=== PATIENT | male | born 1960 | race African-American/Black ===

== ENCOUNTER 2022-07-12 20:11 | Emergency (ER) | payer MEDICAID, SELFPAY ==
[2022-07-12 20:27] VITALS: BP 175/86; PULSE 89; RESP 18; TEMP 36.9; O2SAT 99; BMI 27.1
--- NOTE | 2022-07-12 20:50 | ED_ITS ---
HPI - General Adult General Chief complaint: Shortness of Breath/Dyspnea Stated complaint: hard time catching breath, throat feels swollen Time Seen by Provider: 07/12/22 20:29 Source: patient Mode of arrival: ambulatory Limitations: no limitations History of Present Illness HPI narrative: 62-year-old male presents to the emergency department with months of feeling like his throat is closing. It is accompanied by a feeling of shortness of breath. There is no fever, no weight loss, no vomiting, no difficulty eating. Symptoms do seem worse at night. He is a smoker. He has had these episodes in the past as well. He states that he has been to the ED for them and has been told that there was nothing wrong. He has been told that it was because he was a smoker. He does report ongoing phlegm cough. He does also smoke marijuana. Symptoms do tend to worsen when he lies down at night but do not always improve with sitting up. He has not tried nasal sprays or any other similar treatments. No prior history of ENT consult. No feeling of food getting stuck when he swallows. Denies anxiety. He reports that he has no medical insurance and is frustrated that he cannot get answers on why his throat feels this way. Past medical history he states is benign, denies major long-term health problems. Socially smoker and marijuana user, denies significant alcohol. No pertinent travel. ROS is notable for the respiratory and HEENT symptoms as above, otherwise denies any other generalized, neurological, GI, urinary, skin symptoms. Does report ongoing dental caries. Related Data Home Medications Medication Instructions Recorded Confirmed No Known Home Medications 07/12/22 07/12/22 Previous Rx's Medication Instructions Recorded ipratropium bromide 21 mcg (0.03 2 spray intranasal BID-TID PRN 07/12/22 %) nasal spray Postnasal drip #30 mL Allergies Allergy/AdvReac Type Severity Reaction Status Date / Time No Known Drug Allergies Allergy Verified 07/12/22 20:28 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 (ICD-10) Surgical History (Updated 07/12/22 @ 20:52 by Rad Mason RN) No significant past surgical history Exam Const: Vital Signs, click to edit/add: Vital Signs - 24 hr 07/12/22 20:27 Temperature 98.4 F Pulse Rate [Right Pulse Oximeter] 89 Respiratory Rate 18 Blood Pressure [Ri ght Upper Arm] 175/86 H Pulse Oximetry 99 Oxygen Delivery Me thod Room Air Documenting provider has reviewed patient's vital signs: yes Common normals: no apparent distress General appearance: cooperative and comfortable HENMT: Common normals: normocephalic Head and scalp: normocephalic Face and sinus: normal facial exam Other: TMs normal. Nose with mild clear mucus rhinorrhea. Small postnasal drip. Throat is not swollen. Tonsils are not enlarged. Very poor dentition but no purulent drainage or signs of abscess. Tongue is normal. Eye: Common normals: conjunctivae normal Conjunctiva: conjunctiva(e) normal Neck & C-Spine: Common normals: full ROM and no lymphadenopathy Resp: Common normals: normal respiratory effort, no use of accessory muscles and clear to auscultation bilaterally Effort & inspection: able to speak in complete sentences Auscultation: clear to auscultation bilaterally Cardio: Common normals: regular rate, regular rhythm, S1 normal heart sound, S2 normal heart sound and no murmurs Rate: regular rate Rhythm: regular rhythm Heart sounds: S1 normal and S2 normal Psych: Common normals: speech normal Speech: normal speech Mood and affect: anxious Insight: fair Judgement: fair Skin: Common normals: no rashes or lesions noted General skin exam: no rashes or lesions noted Course Vital Signs Vital signs: Initial Vital Signs Temperature 98.4 F 07/12/22 20:27 Temperature Source Temporal Artery Scan 07/12/22 20:27 Pulse Rate 89 07/12/22 20:27 Respiratory Rate 18 07/12/22 20:27 Blood Pressure 175/86 H 07/12/22 20:27 Blood Pressure Mean 115 07/12/22 20:27 Blood Pressure Position Sitting 07/12/22 20:27 Pulse Oximetry 99 07/12/22 20:27 Oxygen Delivery Method Room Air 07/12/22 20:27 Vital Signs Temperature 98.4 F 07/12/22 20:27 Pulse Rate 89 07/12/22 20:27 Respiratory Rate 18 07/12/22 20:27 Blood Pressure 175/86 H 07/12/22 20:27 Pulse Oximetry 99 07/12/22 20:27 Oxygen Delivery Method Room Air 07/12/22 20:27 Temperature 98.4 F 07/12/22 20:27 Pulse Rate 89 07/12/22 20:27 Respiratory Rate 18 07/12/22 20:27 Blood Pressure 175/86 H 07/12/22 20:27 Pulse Oximetry 99 07/12/22 20:27 Oxygen Delivery Method Room Air 07/12/22 20:27 Medical Decision Making MDM Narrative Medical decision making narrative: No signs of airway compromise. Slight postnasal drip and dental caries but with no signs of acute infection. Lungs without any signs of wheezing today, no tachypnea or hypoxia. I recommended the patient make an appointment for a full physical with primary care provider, consider getting his thyroid tested. I have recommended a trial of a nasal spray to help with postnasal drip like ipratropium. I have advised that this could be connected to his smoking as well. If symptoms fail to improve through this workup, his primary care provider could consider an ENT consult but I do not see any emergent issues today. Patient will make appropriate follow-up with primary care more if his review ipratropium is not helping. Discharge Plan Discharge Clinical Impression: PND (post-nasal drip) Patient Disposition: Home, Self-Care Condition: Stable Instructions: Postnasal Drip (DC) Additional Instructions: As we discussed, we do not do comprehensive throat workups in the emergency department. What I can tell is that your oxygen levels are normal, your throat is not in fact closing and your breathing is fine tonight. You do have somewhat of a small postnasal drip which can be from ongoing smoking. I would like for you to try ipratropium nasal spray 3 times daily as needed to see if this improves your symptoms. As we discussed, in the emergency department we treat emergent conditions only but do not do comprehensive workups. I think you could benefit from seeing a primary care doctor and getting a referral to an ear nose and throat provider for a nasopharyngoscopy if your symptoms fail to improve on the nasal spray. Please explore options through [facility] or [facility]. I agree with you that your teeth are in poor shape but I do not see any signs of an abscess that would warrant antibiotic treatment at this time. Activity Level: No Restrictions Discharge Diet: Regular Prescriptions: New ipratropium bromide 21 mcg (0.03 %) spray,non-aerosol 2 spray intranasal BID-TID PRN (Reason: Postnasal drip) Qty: 30 1RF Rx Instructions: administer into each nostril No Action No Known Home Medications Stand Alone Forms: [employer] Info Instructions
[2022-07-12 21:01] VITALS: BP 165/84; PULSE 84; RESP 18; TEMP 36.9; O2SAT 99
[2022-07-12 21:07] VITALS: BP 165/84; PULSE 84; RESP 18; TEMP 36.9
== END 2022-07-12 21:08 | disposition home or self-care (01) ==
LOC: ED 20:58
PROVIDERS: Emergency Provider Family Medicine
DX: R09.81 Nasal congestion (principal)
CPT/HCPCS: 99282

== ENCOUNTER 2023-01-29 11:07 | Emergency (ER) | payer MEDICAID, SELFPAY ==
[2023-01-29 11:15] VITALS: BP 156/93; PULSE 95; RESP 16; TEMP 36.6; O2SAT 98
--- NOTE | 2023-01-29 11:37 | ED_ITS ---
HPI - Dental/Oral General Chief complaint: Dental/Oral/Mouth Injury/Pain Stated complaint: Neck pain, dizzy Time Seen by Provider: 01/29/23 11:21 History of Present Illness HPI Narrative: Patient is a 62-year-old gentleman comes severe dental pain. He has had number of teeth that have either broken offer been taken on the past. He is having significant dental pain in the premolar region of the upper plates bilaterally. He has had no fevers no chills no night sweats no cough no shortness of breath. Does have a dental appointment tomorrow. Patient is concerned that he has tachy-henry syndrome and this may exacerbate his symptoms with tachycardia. He has had no palpitations during this event in his symptoms been present for last 2-3 days. Related Data Home Medications Medication Instructions Recorded Confirmed No Known Home Medications 07/12/22 07/12/22 Previous Rx's Medication Instructions Recorded ipratropium bromide 21 mcg (0.03 2 spray intranasal BID-TID PRN 07/12/22 %) nasal spray Postnasal drip #30 mL Allergies Allergy/AdvReac Type Severity Reaction Status Date / Time No Known Drug Allergies Allergy Verified 07/12/22 20:28 Review of Systems Status of ROS: Reports: 10 or more systems reviewed and unremarkable except as noted in History and below PFSH PFS Medical History 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 (ICD-10) PTSD (post-traumatic stress disorder) ?F43.10 - Post-traumatic stress disorder, unspecified (ICD-10) Panic attack ?F41.0 - Panic disorder [episodic paroxysmal anxiety] (ICD-10) Hyperlipidemia ?E78.5 - Hyperlipidemia, unspecified (ICD-10) Hypertension ?I10 - Essential (primary) hypertension (ICD-10) Surgical History No significant past surgical history Social History Smoking Status: Current every day smoker Do you use any of these nicotine containing products: None Second hand tobacco smoke exposure: Yes How often do you have a drink containing alcohol: never How often do you have six or more drinks on one occasion: Never AUDIT-C Alcohol total score: 0 Non-prescribed substance use: marijuana (any form) Exam Narrative: Exam Narrative: EXAM GENERAL: Patient appears comfortable and well. With poor dentition. EYES: No scleral icterus. ENT: Tympanic membranes and oropharynx normal. THYROID: no thyroid nodules or thyromegaly. LYMPH: No supraclavicular or cervical lymphadenopathy. SKIN: Visible skin seen during exam normal or with benign process only. EXT: No dependent lower extremity pedal edema. HEART: Regular rate and rhythm with no murmurs, rubs, or gallops. LUNGS: Clear to auscultation bilaterally with no crackles or wheezes. ABD: Soft, non tender, non distended. PSYCH: Good eye contact, speech is not pressured. Const: Vital Signs, click to edit/add: Vital Signs - 24 hr 01/29/23 11:15 Temperature 97.9 F Pulse Rate [Pulse Oximeter] 95 Respiratory Rate 16 Blood Pressure [Ri ght Upper Arm] 156/93 H Pulse Oximetry 98 Oxygen Delivery Me thod Room Air Course Course ED Course: Patient seen and examined. Vital Signs Vital signs: Initial Vital Signs Temperature 97.9 F 01/29/23 11:15 Temperature Source Temporal Artery Scan 01/29/23 11:15 Pulse Rate 95 01/29/23 11:15 Respiratory Rate 16 01/29/23 11:15 Blood Pressure 156/93 H 01/29/23 11:15 Blood Pressure Mean 114 H 01/29/23 11:15 Blood Pressure Position Supine 01/29/23 11:15 Pulse Oximetry 98 01/29/23 11:15 Oxygen Delivery Method Room Air 01/29/23 11:15 Vital Signs Temperature 97.9 F 01/29/23 11:15 Pulse Rate 95 01/29/23 11:15 Respiratory Rate 16 01/29/23 11:15 Blood Pressure 156/93 H 01/29/23 11:15 Pulse Oximetry 98 01/29/23 11:15 Oxygen Delivery Method Room Air 01/29/23 11:15 Temperature 97.9 F 01/29/23 11:15 Pulse Rate 95 01/29/23 11:15 Respiratory Rate 16 01/29/23 11:15 Blood Pressure 156/93 H 01/29/23 11:15 Pulse Oximetry 98 01/29/23 11:15 Oxygen Delivery Method Room Air 01/29/23 11:15 MDM - Dental/Oral MDM Narrative Medical decision making narrative: Patient is a 62-year-old gentleman who will be staffing care with me in the office who presents with severe dental pain and gingivitis. He is treated with amoxicillin with close outpatient follow-up. He does see his dentist tomorrow. Differential Diagnosis Differential diagnosis: Likely gingival abscess, dental caries, toothache, dental abscess, fracture of tooth and aphthous ulcer Discharge Plan Discharge Clinical Impression: Dental caries Patient Disposition: Home, Self-Care Condition: Stable Instructions: Toothache (ED) Additional Instructions: Amoxicillin as directed Tylenol Motrin Follow-up with your dentist as directed. Activity Level: No Restrictions Discharge Diet: Regular Prescriptions: No Action No Known Home Medications ipratropium bromide 21 mcg (0.03 %) spray,non-aerosol 2 spray intranasal BID-TID PRN (Reason: Postnasal drip) Qty: 30 1RF Rx Instructions: administer into each nostril Follow Up/Referrals: Provider,Not a Local [Primary Care Provider] - Stand Alone Forms: [employer] Info Instructions
[2023-01-29 11:59] VITALS: PULSE 73; RESP 16; TEMP 36.5
== END 2023-01-29 11:59 | disposition home or self-care (01) ==
LOC: ED 11:47
PROVIDERS: Emergency Provider Internal Medicine; PCP Internal Medicine
DX: K02.9 Dental caries, unspecified (principal)
CPT/HCPCS: 99283

== ENCOUNTER 2023-03-21 12:50 | Emergency (ER) | payer MEDICAID, SELFPAY ==
[2023-03-21] VITALS (12 sets, daily range): BP systolic 106–148; BP diastolic 70–95; PULSE 66–97; RESP 18; TEMP 36.1; O2SAT 97–100; BMI 27.7
--- NOTE | 2023-03-21 13:07 | CRLHL7_ITS ---
For Patients: As a result of the Cures Act, medical imaging exams and procedure reports are released immediately into your electronic medical record. You may view this report before your referring provider. If you have questions, please contact your health care provider. INDICATION: SOB, PALPITATIONS INDICATION: Palpitations, shortness of breath. TECHNIQUE: Chest 1 view. COMPARISON: 07/06/2019. FINDINGS: Cardiovascular and mediastinum: Heart size and vasculature are normal in caliber and appearance. Mediastinum is within normal limits. Lungs and pleural space: Lungs are clear. No sign of infiltrate or mass. No sign of pleural effusion. No pneumothorax. Bones and soft tissues: Cardiac event recorder identified in the anterior chest wall, stable in position. IMPRESSION: Lungs are clear. Dictated by William Zapata MD @ 03/21/2023 2:18:46 PM Dictated by: William Zapata MD @ 03/21/2023 14:18:51 (Electronically Signed)
--- NOTE | 2023-03-21 13:15 | ED_ITS ---
HPI - Arrhythmia/Palpitations General Date Seen: 03/21/23 Chief Complaint: Arrhythmia/Palpitations Stated Complaint: Fast heart rate, shortness of breath Time Seen by Provider: 03/21/23 12:59 Source: patient Mode of arrival: ambulatory Limitations: no limitations History of Present Illness HPI narrative: Patient is a 63 year who states he has a history of tachy-henry syndrome presenting emergency department for palpitations and lightheadedness. States he has been having the symptoms intermittently for the past 4 days and states he has episodes like this every so often for the past several years. He is be on metoprolol but stop the medication 7 years ago by his own choice. He did not talk to his nutrition services associate about it. Has not seen a nutrition services associate in over 7 years. Just started with primary care over the past few weeks. Did recently get started on antibiotics for dental infections and will have if you have his teeth removed shortly with a dentist. States he feels symptomatic at this time. States there has been a few episodes where he felt like he was going to pass out. Denies any dizziness with it and states his feels more lightheadedness. No recent falls. Will have associated shortness of breath occasionally. Denies fevers, chills, abdominal pain, diarrhea, constipation, headache. Does state he has a mildly sore throat but denies any sick contacts. Related Data Previous Rx's Medication Instructions Recorded ipratropium bromide 21 mcg (0.03 2 spray intranasal BID-TID PRN 07/12/22 %) nasal spray Postnasal drip #30 mL azithromycin 250 mg tablet 250 mg PO .COMPLEX Sinusitis #6 02/17/23 (Zithromax Z-Juan Luis) tabs meclizine 25 mg tablet 25 mg PO QID PRN dizziness #20 tabs 03/21/23 Allergies Allergy/AdvReac Type Severity Reaction Status Date / Time No Known Drug Allergies Allergy Unverified 02/17/23 14:37 Review of Systems Status of ROS: Reports: 10 or more systems reviewed and unremarkable except as noted in History and below [facility] Medical History 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 (ICD-10) PTSD (post-traumatic stress disorder) ?F43.10 - Post-traumatic stress disorder, unspecified (ICD-10) Panic attack ?F41.0 - Panic disorder [episodic paroxysmal anxiety] (ICD-10) Hyperlipidemia ?E78.5 - Hyperlipidemia, unspecified (ICD-10) Hypertension ?I10 - Essential (primary) hypertension (ICD-10) Surgical History No significant past surgical history Social History Smoking Status: Current every day smoker Do you use any of these nicotine containing products: None Second hand tobacco smoke exposure: Yes How often do you have a drink containing alcohol: never How often do you have six or more drinks on one occasion: Never AUDIT-C Alcohol total score: 0 Non-prescribed substance use: marijuana (any form) Little interest or pleasure in doing things: not at all Feeling down, depressed, or hopeless: several days Exam Narrative: Exam Narrative: Const: Well-nourished, Well-developed, in mild distress Eyes: PERRL, no conjunctival injection, and symmetrical lids HENT: Atraumatic external nose and ears. Moist mucous membranes. Neck: Symmetric, trachea midline, No thyromegaly. CVS: RRR, No murmurs or gallops. Peripheral pulses 2+ and equal in all extremities RESP: Unlabored respiratory effort. Clear to auscultation bilaterally. GI: Nontender/Nondistended, No rebound or guarding. MSK:Extremities w/o deformity, Normal Active ROM Skin: Warm, Dry. No rashes or lesions. Neuro: Normal Muscle tone, No focal neurological deficits. Psych: Awake, Alert, & Oriented x3. Appropriate mood and affect. Const: Vital Signs, click to edit/add: Vital Signs - 24 hr 03/21/23 12:53 03/21/23 13:24 03/21/23 13:30 Temperature 97.0 F L Pulse Rate 85 80 Pulse Rate [Right Pulse Oximeter] 97 Respiratory Rate 18 Blood Pressure Blood Pressure [Ri ght Upper Arm] 106/70 Pulse Oximetry 99 99 97 Oxygen Delivery Me thod Room Air 03/21/23 13:45 03/21/23 14:00 03/21/23 14:02 Temperature Pulse Rate 85 77 73 Pulse Rate [Right Pulse Oximeter] Respiratory Rate Blood Pressure 148/89 H Blood Pressure [Ri ght Upper Arm] Pulse Oximetry 98 99 98 Oxygen Delivery Me thod 03/21/23 14:15 03/21/23 14:30 03/21/23 14:31 Temperature Pulse Rate 72 74 73 Pulse Rate [Right Pulse Oximeter] Respiratory Rate Blood Pressure 147/95 H Blood Pressure [Ri ght Upper Arm] Pulse Oximetry 98 100 100 Oxygen Delivery Me thod 03/21/23 14:45 03/21/23 15:00 03/21/23 15:02 Temperature Pulse Rate 77 67 66 Pulse Rate [Right Pulse Oximeter] Respiratory Rate Blood Pressure 138/89 Blood Pressure [Ri ght Upper Arm] Pulse Oximetry 100 99 99 Oxygen Delivery Me thod Course Vital Signs Vital signs: Initial Vital Signs Temperature 97.0 F L 03/21/23 12:53 Temperature Source Temporal Artery Scan 03/21/23 12:53 Pulse Rate 97 03/21/23 12:53 Respiratory Rate 18 03/21/23 12:53 Blood Pressure 106/70 03/21/23 12:53 Blood Pressure Mean 82 03/21/23 12:53 Blood Pressure Position Sitting 03/21/23 12:53 Pulse Oximetry 99 03/21/23 12:53 Oxygen Delivery Method Room Air 03/21/23 12:53 Vital Signs Temperature 97.0 F L 03/21/23 12:53 Pulse Rate 97 03/21/23 12:53 Respiratory Rate 18 03/21/23 12:53 Blood Pressure 106/70 03/21/23 12:53 Pulse Oximetry 99 03/21/23 12:53 Oxygen Delivery Method Room Air 03/21/23 12:53 Temperature 97.0 F L 03/21/23 12:53 Pulse Rate 66 03/21/23 15:02 Respiratory Rate 18 03/21/23 12:53 Blood Pressure 138/89 03/21/23 15:02 Pulse Oximetry 99 03/21/23 15:02 Oxygen Delivery Method Room Air 03/21/23 12:53 Medications Administered Medications: Discontinued Medications Generic Name Dose Route Start Last Admin Trade Name Freq PRN Reason Stop Dose Admin Meclizine HCl 25 mg 03/21/23 14:26 03/21/23 14:30 Meclizine Hcl 25 Mg Tablet PO 03/21/23 14:27 25 mg ONCE ONE Administration MDM - Arrhythmia/Palpitations MDM Narrative Medical decision making narrative: Patient is a 63-year-old male presenting for lightheadedness and dizziness along with concern for tachyarrhythmias. He is not on his metoprolol now it has been several years. He has not seen a nutrition services associate in several years. Currently his heart rate is within normal limits. Unsure was causing his symptoms but he was initially telling me it felt more like lightheadedness. CBC, CMP, TSH, troponin, EKG, BNP all ordered. Result believe his symptoms sound like a pulmonary embolism at this time.. While patient was walking to the bathroom he told staff he was feeling dizzy. After speaking to him about this he says this feels like he is on a boat and while bleeding back in forth. He also states occasionally certain positions of head movement make the dizziness worse. At this time is symptoms sound more like vertigo than presyncope and he will be treated with meclizine. CBC, CMP, BNP, troponin, COVID/flu all showed no concerning abnormalities. Chest x-ray showed no acute abnormalities. After the meclizine patient's symptoms have improved significantly he feels safe for discharge. Considering his sore throat he could be having a viral infection leading to some inner ear inflammation and vestibular neuritis. He will be discharged home with a prescription for meclizine. I informed in the follow-up with primary care provider. He is ag reeable this plan. Lab Data Labs: Lab Results 03/21/23 03/21/23 Range/Units 13:35 14:03 WBC 11.00 (4.50-11.00) K/uL RBC 5.28 (4.30-5.90) m/uL Hgb 13.8 (13.5-17.5) gm/dL Hct 43.3 (37.0-53.0) % MCV 82 (80-100) fL MCH 26 (26-34) pg MCHC 32 (32-36) gm/dL RDW Coeff of Juanito 14.9 (11.5-15.5) % Plt Count 286 (140-440) K/uL Neut % (Auto) 70.2 (42.0-72.0) % Lymph % (Auto) 17.4 L (20-44) % Bailey % (Auto) 7.3 (0.0-11.0) % Eos % (Auto) 4.4 (0.0-7.0) % Baso % (Auto) 0.2 (0.0-3.0) % Neut # (Auto) 7.74 H (1.7-7.0) K/uL Lymph # (Auto) 1.90 (0.90-2.90) K/uL Bailey # (Auto) 0.80 (0.00-0.90) K/UL Eos # (Auto) 0.48 (0.00-0.50) K/uL Baso # (Auto) 0.02 (0.00-0.30) K/uL Abs Immat Gran (auto) 0.05 (0.00-0.30) K/uL Imm/Tot Granulo (auto) 0.5 % Sodium 138 (135-149) mmol/L Potassium 3.9 (3.6-5.1) mmol/L Chloride 104 (96-114) mmol/L Carbon Dioxide 25 (20-32) mmol/L Anion Gap 9 (7-15) mEq/L BUN 12 (7-30) mg/dL Creatinine 1.2 (0.5-1.5) mg/dL Estimated Creat Clear 71.35 Estimated GFR 67 ml/min Glucose 131 H (60-115) mg/dL Calcium 9.8 (8.4-10.6) mg/dL Total Bilirubin 0.4 (0.1-1.5) mg/dL AST 25 (12-35) U/L ALT 26 (4-50) U/L Alkaline Phosphatase 105 (40-150) U/L Troponin I < 0.01 L (0.01-0.04) ng/mL NT-Pro-B Natriuret Pep 113 pg/mL Total Protein 8.1 (6.0-8.3) g/dL Albumin 4.7 (3.3-5.0) g/dL TSH 2.290 (0.270-4.20) uIU/mL SARS-CoV-2 (PCR) Negative SARS-CoV-2 (Negative) Influenza Type A (PCR) Negative PCR FLU A (Negative) Influenza Type B (PCR) Negative PCR FLU B (Negative) Lab Acknowledgement Test Added Imaging Data Chest x-ray: Radiologist's impression: Lungs are clear. Dictated by William Zapata MD @ 03/21/2023 2:18:46 PM ECG Data Attestation: I personally reviewed and interpreted this ECG as follows: Prior ECG tracings: not available for review Interpretation: Normal sinus rhythm with a rate of 80 beats per minute, normal intervals, normal axis, no ST or T-wave abnormalities. Discharge Plan Discharge Clinical Impression: Dizziness Patient Disposition: Home, Self-Care Condition: Improved Instructions: Vertigo (DC) Additional Instructions: Take the meclizine as needed for your dizziness. Follow-up with your primary care provider. Prescriptions: New meclizine 25 mg tablet 25 mg PO QID PRN (Reason: dizziness) Qty: 20 0RF No Action azithromycin [Zithromax Z-Juan Luis] 250 mg tablet 250 mg PO .COMPLEX Qty: 6 0RF Rx Instructions: 250 mg orally; ipratropium bromide 21 mcg (0.03 %) spray,non-aerosol 2 spray intranasal BID-TID PRN (Reason: Postnasal drip) Qty: 30 1RF Rx Instructions: administer into each nostril Follow Up/Referrals: Jean-Paul Arauz MD [Primary Care Provider] - Stand Alone Forms: [employer] Info Instructions
[2023-03-21 13:47] LABS: Basophils Absolute Auto 0.02 K/uL (0.00-0.30); Basophils Percent Auto 0.2 % (0.0-3.0); Eosinophils Absolute Auto 0.48 K/uL (0.00-0.50); Eosinophils Percent Auto 4.4 % (0.0-7.0); Hematocrit 43.3 % (37.0-53.0); Hemoglobin* 13.8 gm/dL (13.5-17.5); Immature Granulocytes Abs Auto 0.05 K/uL (0.00-0.30); Immature Granulocytes Pct Auto 0.5 %; Lymphocytes Percent Auto 17.4 % (20-44); Mean Corpuscular HGB Conc 32 gm/dL (32-36); Mean Corpuscular Hemoglobin 26 pg (26-34); Mean Corpuscular Volume 82 fL (80-100); Monocytes Percent Auto 7.3 % (0.0-11.0); Neutrophils Absolute Auto 7.74 K/uL (1.7-7.0); Neutrophils Percent Auto 70.2 % (42.0-72.0); Platelet Count* 286 K/uL (140-440); RDW Coefficient of Variation % 14.9 % (11.5-15.5); Red Blood Count 5.28 m/uL (4.30-5.90)
[2023-03-21 13:48] LABS: Slide Review Reflex No
[2023-03-21 14:02] LABS: Albumin* 4.7 g/dL (3.3-5.0); Chloride* 104 mmol/L (96-114); Potassium* 3.9 mmol/L (3.6-5.1); Sodium* 138 mmol/L (135-149)
[2023-03-21 14:04] LABS: Anion Gap 9 mEq/L (7-15); Aspartate Amino Transferase* 25 U/L (12-35); Bilirubin Total* 0.4 mg/dL (0.1-1.5); Carbon Dioxide* 25 mmol/L (20-32); Creatinine* 1.2 mg/dL (0.5-1.5); Est. Creatinine Clearance* 71.35; Estimated Glomerular Filt Rate 67 ml/min; Total Protein* 8.1 g/dL (6.0-8.3)
[2023-03-21 14:05] LABS: Alanine Aminotransferase* 26 U/L (4-50); Alkaline Phosphatase* 105 U/L (40-150); Blood Urea Nitrogen* 12 mg/dL (7-30); Calcium* 9.8 mg/dL (8.4-10.6); Glucose* 131 mg/dL (60-115)
[2023-03-21 14:18] LABS: NT Pro B Type NatriureticPept* 113 pg/mL; Troponin I* < 0.01 ng/mL (0.01-0.04)
[2023-03-21 14:29] LABS: PCR FLU A Negative PCR FLU A (Negative); PCR FLU B Negative PCR FLU B (Negative)
[2023-03-21] MEDS: MECLIZINE HCL 25 MG TABLET PO (14:30)
[2023-03-21 14:32] LABS: SARS PCR* Negative SARS-CoV-2 (Negative)
== END 2023-03-21 15:17 | disposition home or self-care (01) ==
PROVIDERS: Emergency Provider Student in an Organized Health Care Education/Training Program; PCP Internal Medicine
DX: R42 Dizziness and giddiness (principal)
CPT/HCPCS: 36415; 71045; 80053; 83880; 84443; 84484; 85025; 87631; 93005; 99283; 99284; 99285; A9270

== ENCOUNTER 2023-04-16 04:15 | Outpatient (CLI) | payer MEDICAID, SELFPAY | END 2023-04-16 04:16 | disposition home or self-care (01) | LOC: AMB 04-17 10:53 | PROVIDERS: PCP Internal Medicine; Visit Provider Emergency Medicine | DX: R06.09 Other forms of dyspnea (principal) | CPT/HCPCS: A0425; A0427 ==

== ENCOUNTER 2023-04-16 04:32 | Emergency (ER) | payer MEDICAID, SELFPAY ==
[2023-04-16 04:39] VITALS: BP 169/109; PULSE 105; RESP 20; TEMP 36.8; O2SAT 99; BMI 26.4
[2023-04-16] MEDS: FLUTICASONE PROPIONATE NASAL 1 SPRAY NOSTRIL-B (05:05)
--- NOTE | 2023-04-16 05:09 | ED.GENADULT ---
HPI - General Adult General Date Seen: 04/16/23 Chief complaint: Shortness of Breath/Dyspnea Stated complaint: respiratory distress Time Seen by Provider: 04/16/23 04:37 Source: patient, EMS, RN notes reviewed and old records reviewed Mode of arrival: EMS Limitations: no limitations History of Present Illness HPI narrative: Patient is a 63-year-old male presents by EMS overnight for evaluation of difficulty sleeping and congestion. He says for the past 3 5 days he has only been sleeping 3-4 hours, he says that he has been chronically congested and feels like he has congestion in his nose and throat which prevents him from sleeping well. He was seen here back in June and at that time was prescribed and ipratropium nasal spray which he says he tried for a little while but did not feel like it helped. He then bought Afrin at the drug store and says he has been using that for at least a few months daily. He is not having difficulty swallowing, he does feel with his voices slightly hoarse. He does not describe shortness of breath per se. He did see Dr. Arauz in clinic a couple of times but has not seen ENT. He continues to smoke, tobacco and occasional marijuana. He is under care to get his upper teeth removed. 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 (ICD-10) PTSD (post-traumatic stress disorder) ?F43.10 - Post-traumatic stress disorder, unspecified (ICD-10) Panic attack ?F41.0 - Panic disorder [episodic paroxysmal anxiety] (ICD-10) Hyperlipidemia ?E78.5 - Hyperlipidemia, unspecified (ICD-10) Hypertension ?I10 - Essential (primary) hypertension (ICD-10) Surgical History No significant past surgical history Social History Smoking Status: Current every day smoker Do you use any of these nicotine containing products: None Second hand tobacco smoke exposure: Yes How often do you have a drink containing alcohol: never How often do you have six or more drinks on one occasion: Never AUDIT-C Alcohol total score: 0 Non-prescribed substance use: marijuana (any form) Little interest or pleasure in doing things: not at all Feeling down, depressed, or hopeless: several days Exam Narrative: Exam Narrative: Vital signs as noted above. In general, an alert, nontoxic male. He sniffs frequently throughout our conversation. Head: Normocephalic, atraumatic. Eyes: Pupils are equal reactive. Extraocular movements are full. Conjunctivae are normal. ENT: Mucous membranes are moist. Throat is normal. Nares are congested, he has some dried nasal secretions blocking the right nares, difficult to assess for polyps. Neck: Supple without lymphadenopathy or masses. No stridor. Voice does not appear obviously hoarse. Heart: Regular rate and rhythm. No murmur or rub. Lungs: Clear bilaterally. No increased work of breathing, crackles or wheezes. Abdomen: Soft and nontender. No organomegaly. Extremities: Well perfused. No edema. No calf tenderness. Pulses intact. Neurologic: Patient is alert and oriented to person and place. Speech is fluent. Face is symmetric. Moves all extremities equally. Affect: Normal. Skin: Warm and dry. Well perfused. Const: Vital Signs, click to edit/add: Vital Signs - 24 hr 04/16/23 04:39 Temperature 98.3 F Pulse Rate [Right Pulse Oximeter] 105 H Respiratory Rate 20 Blood Pressure [Ri ght Upper Arm] 169/109 H Pulse Oximetry 99 Oxygen Delivery Me thod Room Air Documenting provider has reviewed patient's vital signs: yes Course Course ED Course: Had a fairly lengthy conversation with him about his symptoms. This does not appear to be a primary pulmonary or cardiac process. He has upper airway congestion which is chronic. I recommended a trial of Flonase. He says he has had a sleep study in the past and is not known to have sleep apnea although this would be another consideration. He understands that his smoking is likely a contributing factor to this. He did tell me that he has a very busy life and he would like to just get this all evaluated now so it is done with. I have discussed with him that I do not think I have a lot to offer from an emergency room standpoint, but I do think it would be valuable for him to follow-up with ENT for a more focused evaluation and to determine whether any other testing is indicated. In the meantime, I offered small number of Ambien to use over the next 2 days if needed for insomnia. Have discussed that these are habit-forming and not intended for long-term use. I gave him a bottle of fluticasone here in the ER and would like him to use that once daily, and would like him to follow up with ENT in the next couple of weeks. I gave him the phone number but explained to him that he will need to make that phone call and follow-up during business hours. He is comfortable with that plan. Vital Signs Vital signs: Initial Vital Signs Respiratory Effort Normal, Spontaneous, Non-Labored 04/16/23 04:38 Respiratory Depth Normal 04/16/23 04:38 Respiratory Pattern Normal 04/16/23 04:38 Vital Signs Temperature 98.3 F 04/16/23 04:39 Pulse Rate 105 H 04/16/23 04:39 Respiratory Rate 20 04/16/23 04:39 Blood Pressure 169/109 H 04/16/23 04:39 Pulse Oximetry 99 04/16/23 04:39 Oxygen Delivery Method Room Air 04/16/23 04:39 Temperature 98.3 F 04/16/23 04:39 Pulse Rate 105 H 04/16/23 04:39 Respiratory Rate 20 04/16/23 04:39 Blood Pressure 169/109 H 04/16/23 04:39 Pulse Oximetry 99 04/16/23 04:39 Oxygen Delivery Method Room Air 04/16/23 04:39 Medications Administered Medications: Generic Name Dose Route Start Last Admin Trade Name Freq PRN Reason Stop Dose Admin Fluticasone Propionate 1 spray 04/16/23 09:00 04/16/23 05:05 Fluticasone Propionate Nasal NOSTRIL-B 1 spray DAILY ZAINA Administration Discharge Plan Discharge Clinical Impression: Insomnia, Chronic nasal congestion Patient Disposition: Home, Self-Care Condition: Stable Instructions: Insomnia (ED), How to Use Nasal [place] (ED) Additional Instructions: Ambien if needed over the next few days, avoid prolonged use as this medication is habit forming. For nasal/throat congestion, trial of Flonase. You should be seen in follow up with ENT (ear/nose/throat) for further evaluation; please call [phone] to schedule. Prescriptions: New zolpidem [Ambien] 10 mg tablet 10 mg PO QHS PRNQty: 7 0RF No Action meclizine 25 mg tablet 25 mg PO QID PRN (Reason: dizziness) Qty: 20 0RF Follow Up/Referrals: Jean-Paul Arauz MD [Primary Care Provider] - Stand Alone Forms: [employer] Info Instructions
[2023-04-16 05:10] VITALS: BP 169/109; PULSE 105; RESP 20; TEMP 36.8; O2SAT 99
== END 2023-04-16 05:15 | disposition home or self-care (01) ==
LOC: ED 05:11
PROVIDERS: Emergency Provider Emergency Medicine; PCP Internal Medicine
DX: G47.00 Insomnia, unspecified (principal); R09.81 Nasal congestion
CPT/HCPCS: 99283; 99284; A9270

== ENCOUNTER 2023-05-20 18:39 | Emergency (ER) | payer MEDICAID, SELFPAY ==
[2023-05-20 18:57] VITALS: BP 162/96; PULSE 103; RESP 18; O2SAT 99; BMI 27.7
--- NOTE | 2023-05-20 19:15 | ED_ITS ---
HPI - General Adult General Chief complaint: Chest Pain Stated complaint: Lightheaded, dizzy Time Seen by Provider: 05/20/23 18:53 History of Present Illness HPI narrative: This 63-year-old male comes in reporting palpitations and some chest discomfort. He has a history of anxiety and states that he does worry about symptoms in his chest. He also has a history of tachy-henry syndrome. He reports intermittent chest pains over the past week. He states that is not really a pain but more like a pinch. He reports some palpitations. He states that he was sitting earlier today and became lightheaded and did lose consciousness briefly. He did not fall or have any injury. He also reports some diarrhea occasionally over the past week and half. He is a smoker. He has been on metoprolol in the past but states that he no longer wants to take that medicine and has not been on it for the past 7 years. He does have a history of atypical chest pain. He does not report any exercise intolerance. He has not had any nausea or vomiting. He does report some occasional lightheadedness and vertigo symptoms. He has not had any diaphoresis. He is a smoker. Related Data Home Medications Medication Instructions Recorded Confirmed aspirin 81 mg tablet,delayed 81 mg PO QDAY 04/16/23 04/16/23 release Previous Rx's Medication Instructions Recorded meclizine 25 mg tablet 25 mg PO QID PRN dizziness #20 tabs 03/21/23 clonazepam 0.5 mg tablet 0.5 mg PO BID PRN panic attacks 04/16/23 #14 tabs escitalopram oxalate 10 mg tablet 10 mg PO QDAY #30 tabs 04/16/23 zolpidem 10 mg tablet (Ambien) 10 mg PO QHS PRN #7 tabs 04/16/23 Allergies Allergy/AdvReac Type Severity Reaction Status Date / Time No Known Drug Allergies Allergy Verified 04/16/23 13:10 Review of Systems Status of ROS: Reports: 10 or more systems reviewed and unremarkable except as noted in History and below Narrative: Constitutional: No fevers, no weight gain or loss. Eyes: No discharge. No vision changes. HENT: No congestion, no sore throat, no ear pain. Cardiovascular: Palpitations related to tachy-henry syndrome. Respiratory: No shortness of breath, no wheezes, no cough. Gastrointestinal: No abdominal pain, no vomiting. Some diarrhea on and off over the last week and half. Genitourinary: No dysuria, no hematuria. Musculoskeletal: Normal range of motion. Skin: No rashes, no pruritis. Neurological: No weakness, sensory change, speech change. He does have some occasional vertigo symptoms. Endo/Heme/Allergies: No bruising or bleeding. No polydipsia. Pysch: no suicidality, no anxiety, no insomnia. All other systems reviewed and are negative. 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 (ICD-10) PTSD (post-traumatic stress disorder) ?F43.10 - Post-traumatic stress disorder, unspecified (ICD-10) Panic attack ?F41.0 - Panic disorder [episodic paroxysmal anxiety] (ICD-10) Hyperlipidemia ?E78.5 - Hyperlipidemia, unspecified (ICD-10) Hypertension ?I10 - Essential (primary) hypertension (ICD-10) Surgical History No significant past surgical history Social History Smoking Status: Current every day smoker What tobacco products do you use: cigarettes Do you use any of these nicotine containing products: None Second hand tobacco smoke exposure: Yes How often do you have a drink containing alcohol: never How often do you have six or more drinks on one occasion: Never AUDIT-C Alcohol total score: 0 Non-prescribed substance use: marijuana (any form) Little interest or pleasure in doing things: more than half the days Feeling down, depressed, or hopeless: nearly every day Exam Narrative: Exam Narrative: Constitutional: Well-developed, well-nourished, no acute distress. HEENT: Normocephalic, atraumatic. Neck: Normal range of motion. Nontender. Supple. Heart: Regular. No murmurs. Normal rate. Intact distal pulses. Lungs: Clear to auscultation. No chest discomfort. No wheezes, rhonchi, or rales. Abdomen: Normal bowel sounds. Nontender. No rebound tenderness. Genitalia: Deferred. Back: No midline tenderness. Normal range of motion. Extremities: Normal range of motion. No injury. Skin: Intact. No rash. Warm. No erythema or pallor. Neurologic: No altered sensation. No weakness. Alert and oriented. Psychiatric: No suicidality. No anxiety or depression. No insomnia. Nursing notes and vitals signs are reviewed. Const: Vital Signs, click to edit/add: Vital Signs - 24 hr 05/20/23 18:57 05/20/23 20:08 Temperature 98.5 F Pulse Rate [Right Pulse Oximeter] 103 H 88 Respiratory Rate 18 20 Blood Pressure [Ri ght Upper Arm] 162/96 H Pulse Oximetry 99 96 Oxygen Delivery Me thod Room Air Room Air Course Vital Signs Vital signs: Initial Vital Signs Pulse Rate 103 H 05/20/23 18:57 Pulse Rhythm Regular 05/20/23 18:57 Pulse Strength 3+ Normal 05/20/23 18:57 Respiratory Rate 18 05/20/23 18:57 Blood Pressure 162/96 H 05/20/23 18:57 Blood Pressure Mean 118 H 05/20/23 18:57 Blood Pressure Position Supine 05/20/23 18:57 Pulse Oximetry 99 05/20/23 18:57 Oxygen Delivery Method Room Air 05/20/23 18:57 Vital Signs Pulse Rate 103 H 05/20/23 18:57 Respiratory Rate 18 05/20/23 18:57 Blood Pressure 162/96 H 05/20/23 18:57 Pulse Oximetry 99 05/20/23 18:57 Oxygen Delivery Method Room Air 05/20/23 18:57 Temperature 98.5 F 05/20/23 20:08 Pulse Rate 88 05/20/23 20:08 Respiratory Rate 20 05/20/23 20:08 Blood Pressure 162/96 H 05/20/23 18:57 Pulse Oximetry 96 05/20/23 20:08 Oxygen Delivery Method Room Air 05/20/23 20:08 Medical Decision Making MDM Narrative Medical decision making narrative: This patient comes in with the above-stated symptoms. He admits to having lots of anxiety. He is taking Lexapro and states that he has clonazepam that he has taken about 12 tablets over the past month. He states that he is spreading this out as best as he can but indicates that his anxiety is not well controlled. He does not report any symptoms of suicidality or intent to harm himself or others. EKG and lab results today returned with reassuring findings. His troponin is in normal range. It seems that his symptoms are primarily due to anxiety. He does have a history of tachy-henry syndrome and he is a smoker. I did advise him to follow-up with his primary physician and agreed to give him an oral dose of Ativan 1 mg here today. I did provide prescription for 10 more tablets of 0.5 mg Ativan. He understands that we will not refill the side of the ER. It seems that his Lexapro prescription is not working well enough for him. I did advise him regarding clinical and therapy options that he can pursue. Lab Data Labs: Lab Results 05/20/23 Range/Units 19:10 WBC 11.13 H (4.50-11.00) K/uL RBC 5.15 (4.30-5.90) m/uL Hgb 13.4 L (13.5-17.5) gm/dL Hct 42.4 (37.0-53.0) % MCV 82 (80-100) fL MCH 26 (26-34) pg MCHC 32 (32-36) gm/dL RDW Coeff of Juanito 15.3 (11.5-15.5) % Plt Count 290 (140-440) K/uL Neut % (Auto) 63.8 (42.0-72.0) % Lymph % (Auto) 22.5 (20-44) % [place] % (Auto) 8.5 (0.0-11.0) % Eos % (Auto) 4.4 (0.0-7.0) % Baso % (Auto) 0.2 (0.0-3.0) % Neut # (Auto) 7.10 H (1.7-7.0) K/uL Lymph # (Auto) 2.50 (0.90-2.90) K/uL [place] # (Auto) 0.90 (0.00-0.90) K/UL Eos # (Auto) 0.50 (0.00-0.50) K/uL Baso # (Auto) 0.00 (0.00-0.30) K/uL Abs Immat Gran (auto) 0.10 (0.00-0.30) K/uL Imm/Tot Granulo (auto) 0.6 % Sodium 141 (135-149) mmol/L Potassium 3.5 L (3.6-5.1) mmol/L Chloride 106 (96-114) mmol/L Carbon Dioxide 25 (20-32) mmol/L Anion Gap 10 (7-15) mEq/L BUN 14 (7-30) mg/dL Creatinine 1.4 (0.5-1.5) mg/dL Estimated Creat Clear 61.16 Estimated GFR 56 ml/min Glucose 119 H (60-115) mg/dL Calcium 9.7 (8.4-10.6) mg/dL Troponin I 0.01 (0.01-0.04) ng/mL ECG Data Attestation: I personally reviewed and interpreted this ECG as follows: Interpretation: Normal sinus rhythm. Rate is 87 beats per minute. There are no ST or T-wave abnormalities. Discharge Plan Discharge Clinical Impression: Anxiety, Atypical chest pain Patient Disposition: Home, Self-Care Condition: Stable Additional Instructions: Take medication as prescribed and needed. Follow-up with primary physician for ongoing management. Return if worsening. Prescriptions: No Action aspirin 81 mg tablet,delayed release (DR/EC) 81 mg PO QDAY escitalopram oxalate 10 mg tablet 10 mg PO QDAY Qty: 30 1RF clonazepam 0.5 mg tablet 0.5 mg PO BID PRN (Reason: panic attacks) Qty: 14 0RF meclizine 25 mg tablet 25 mg PO QID PRN (Reason: dizziness) Qty: 20 0RF zolpidem [Ambien] 10 mg tablet 10 mg PO QHS PRNQty: 7 0RF Follow Up/Referrals: Jean-Paul Arauz MD [Primary Care Provider] - Stand Alone Forms: [employer] Info Instructions
[2023-05-20 19:23] LABS: Basophils Percent Auto 0.2 % (0.0-3.0); Eosinophils Percent Auto 4.4 % (0.0-7.0); Hematocrit 42.4 % (37.0-53.0); Hemoglobin* 13.4 gm/dL (13.5-17.5); Immature Granulocytes Pct Auto 0.6 %; Lymphocytes Percent Auto 22.5 % (20-44); Mean Corpuscular HGB Conc 32 gm/dL (32-36); Mean Corpuscular Hemoglobin 26 pg (26-34); Mean Corpuscular Volume 82 fL (80-100); Monocytes Percent Auto 8.5 % (0.0-11.0); Neutrophils Percent Auto 63.8 % (42.0-72.0); Platelet Count* 290 K/uL (140-440); RDW Coefficient of Variation % 15.3 % (11.5-15.5); Red Blood Count 5.15 m/uL (4.30-5.90); White Blood Count* 11.13 K/uL (4.50-11.00)
[2023-05-20 19:25] LABS: Slide Review Reflex No
--- OUTSIDE RECORDS SUMMARY | 2023-05-20 19:31 | XMS_ITS | Clinical Summary ---
Author Name Unknown Organization [facility] Address [place], [place] [address] Care Team Providers Care Blow Off Worker Name Role Phone Pcp, No Primary Care Provider Unavailabl e Allergies No known active allergies Medications Medication Sig Dispensed Refills Start Date End Date Status hydroCHLOROthiazide (HCTZ) 25 mg tabletIndications:Ess ential hypertension Take 1 tablet by mouth once daily. 90 tablet 1 08/28/2016 Active aspirin (ECOTRIN) 81 mg enteric coated tablet Take 1 tablet by mouth once daily with a meal. 0 09/16/2016 Active FLUoxetine (PROZAC) 10 mg capsuleIndications:An xiety associated with depression Take 1 capsule by mouth every morning. 90 capsule 2 12/24/2016 Active lovastatin (MEVACOR) 20 mg tabletIndications:Hyp erlipidemia, unspecified TAKE 1 TABLET BY MOUTH AT BEDTIME 90 tablet 0 06/30/2017 Active clonazePAM (KLONOPIN) 0.5 mg tabletIndications:Anx iety associated with depression Take 1 tablet by mouth 2 times daily if needed for Anxiety. 60 tablet 0 08/12/2017 Active Active Problems Problem Noted Date Diagnosed Date Controlled substance agreement signed 09/05/2016 Overview: Signed 09/03/2016 Dr Lydia Dejesus Psychiatry Controlled substance agreement signed 09/03/2016 Posttraumatic stress disorder 09/03/2016 History of panic attacks 08/31/2016 Hyperlipidemia, unspecified 08/28/2016 Essential hypertension 08/28/2016 Tachycardia-bradycardia syndrome 08/28/2016 Family History Medical History Relation Name Comments Coronary artery disease Brother 1 Diabetes Brother 1 Stroke Father Coronary artery disease Mother Unknown Sister 1 Unknown Sister 2 Relation Name Status Comments Brother 1 Brother 2 Alive Father Mother Sister 1 Sister 2 cancer unknown Social History Tobacco Use Types Packs/Day Years Used Date Smoking Tobacco: Every Day Cigarettes Smokeless Tobacco: Never Tobacco Cessation:Ready to Q uit: Yes; Counseling Given: Yes Comments:a pack or less a week Alcohol Use Standard Drinks/Week Comments No 0 (1 standard drink = 0.6 oz pur e alcohol) PHQ-2 Answer Date Recorded PHQ-2 Score 4 06/22/2018 Sex and Gender Information Value Date Recorded Sex Assigned at Not on file Gender Identity Not on file Sexual Orientation Not on file Obstetrics History Last Filed Vital Signs Vital Sign Reading Time Taken Comments Blood Pressure 157/84 05/24/2018 4:24 PM BUSINESS OPERATIONS ANALYST Pulse 84 05/24/2018 4:24 PM BUSINESS OPERATIONS ANALYST Temperature 36.7 ??C (98.1 ??F) 08/28/2016 10:58 AM C DT Respiratory Rate 16 05/24/2018 4:24 PM BUSINESS OPERATIONS ANALYST Oxygen Saturation 100% 09/16/2016 9:16 AM CDT Inhaled Oxygen Concentration - - Weight 97.5 kg (215 lb) 05/24/2018 12:46 PM BUSINESS OPERATIONS ANALYST Height 185.5 cm (6' 1.03) 08/28/2016 10:58 AM C DT Body Mass Index 28.34 08/28/2016 10:58 AM CDT Plan of Treatment Health Maintenance Due Date Last Done Comments COVID-19 vaccine series (#1) 1958 Tdap 1969 HIV for age 15-65 1973 Hepatitis C screening for ag e 18-79 02/19/1976 Tetanus booster 1978 Colonoscopy through age 75 2003 Zoster (shingles) series for age 50+ (1 of 2) 02/19/2008 BMI (ht and wt on same day) for age 18+ 08/28/2017 08/28/2016 Depression screening for age 12+ 05/26/2019 05/26/2018, 05/24/2018, 12/24/2016, Additional history exists Lipids for age 45-75 09/03/2021 09/03/2016 Influenza for age 65+ 2023 Pneumococcal series for age 65+ (1 of 1 - PCV) 2023 Care Teams Blow Off Worker Relationship Specialty Start Date End Date Pcp, No . PCP - General 01/05/20
[2023-05-20 19:42] LABS: Chloride* 106 mmol/L (96-114); Potassium* 3.5 mmol/L (3.6-5.1); Sodium* 141 mmol/L (135-149)
[2023-05-20 19:44] LABS: Creatinine* 1.4 mg/dL (0.5-1.5); Est. Creatinine Clearance* 61.16; Estimated Glomerular Filt Rate 56 ml/min
[2023-05-20 19:45] LABS: Anion Gap 10 mEq/L (7-15); Blood Urea Nitrogen* 14 mg/dL (7-30); Calcium* 9.7 mg/dL (8.4-10.6); Carbon Dioxide* 25 mmol/L (20-32); Glucose* 119 mg/dL (60-115)
[2023-05-20 20:08] VITALS: PULSE 88; RESP 20; TEMP 36.9; O2SAT 96
[2023-05-20 21:00] LABS: Troponin I* 0.01 ng/mL (0.01-0.04)
== END 2023-05-20 21:33 | disposition home or self-care (01) ==
PROVIDERS: Emergency Provider Emergency Medicine Emergency Medical Services; PCP Internal Medicine
DX: R07.9 Chest pain, unspecified (principal); F41.9 Anxiety disorder, unspecified
CPT/HCPCS: 36415; 80048; 84484; 85025; 93005; 99284

== ENCOUNTER 2023-12-17 12:00 | Emergency (ER) | payer SELFPAY ==
[2023-12-17] VITALS (12 sets, daily range): BP systolic 112–156; BP diastolic 77–106; PULSE 57–95; RESP 18–20; TEMP 36.8; O2SAT 97–100; BMI 27.1
[2023-12-17 14:41] LABS: Appearance Urine Clear (Clear); Bilirubin Urine Negative (Negative); Blood Urine Trace-lysed (Negative); Color Urine Yellow (Yellow); Glucose Urine Negative (Negative); Ketones Urine Negative (Negative); Leukocyte Esterase Urine Negative (Negative); Nitrite Urine Negative (Negative); Protein Urine Negative (Negative); Specific Gravity Urine 1.025 (1.000-1.030); Urobilinogen Urine 0.2 (0.2-1.0); pH Urine 5.5 (5.0-8.5)
--- NOTE | 2023-12-17 14:44 | ED.GENADULT ---
HPI - General Adult General Time Seen by Provider: 14:44 <Annei Han MD - Last Filed: 12/19/23 16:48> Date Seen: 12/17/23 <Annie Han MD - Last Filed: 12/19/23 16:48> Chief complaint: Abdominal Pain <Annie Han MD - Last Filed: 12/19/23 16:48> Stated complaint: Severe abd pain, low back pain, anxiety <Annie Han MD - Last Filed: 12/19/23 16:48> Time Seen by Provider: 12/17/23 14:38 <Annie Han MD - Last Filed: 12/19/23 16:48> Source: patient and RN notes reviewed <Annie Han MD - Last Filed: 12/19/23 16:48> Mode of arrival: ambulatory <Annie Han MD - Last Filed: 12/19/23 16:48> Limitations: no limitations <Annie Han MD - Last Filed: 12/19/23 16:48> History of Present Illness HPI narrative: This 63-year-old male is coming in with lower pelvic pain that wraps into his back. It has been there for about a week and a half. Patient did try some routine [id number] medicines including generic omeprazole. He states it feels like a cable is squeezing him. Pain is worsening over the last 3 days. He thinks he has maybe had a fever. He has had normal bowel movement. He has had no change in urinary symptoms but baseline he has nocturia about 3-4 times, does sound like there might be some urinary hesitancy. He has no history kidney stones. He is not had any abdominal surgery ever. Appetite has been okay, no nausea or vomiting. He did ask nursing staff for refill of his Klonopin while he was here but he did not bring that up to me. He readily admits that he is a smoker. <Annie Han MD - Last Filed: 12/19/23 16:48> Related Data Home medications: Home Medications ?Medication ?Instructions ?Recorded ?Confirmed aspirin 81 mg tablet,delayed 81 mg PO QDAY 04/16/23 12/17/23 release escitalopram oxalate 10 mg tablet 5 mg PO QDAY 12/17/23 12/17/23 Previous Rx's ?Medication ?Instructions ?Recorded zolpidem 10 mg tablet (Ambien) 10 mg PO QHS PRN insomnia #20 tabs 05/26/23 triamcinolone acetonide 0.5 % 1 applic topical QDAY PRN rash #15 06/01/23 topical cream grams meclizine 25 mg tablet 25 mg PO QID PRN dizziness #20 tabs 09/07/23 clonazepam 0.5 mg tablet 0.5 mg PO BID PRN panic attacks 11/24/23 #14 tabs <Annie Han MD - Last Filed: 12/19/23 16:48> Allergies/adverse reactions: Allergies Allergy/AdvReac Type Severity Reaction Status Date / Time No Known Drug Allergies Allergy Verified 12/17/23 12:27 <Annie Han MD - Last Filed: 12/19/23 16:48> Review of Systems Status of ROS: Reports: 6 or more systems reviewed and unremarkable except as noted in History and below <Annie Han MD - Last Filed: 12/19/23 16:48> [facility] Medical History: Medical History Rash ?R21 - Rash and other nonspecific skin eruption (ICD-10) Insomnia ?G47.00 - Insomnia, unspecified (ICD-10) 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 (ICD-10) PTSD (post-traumatic stress disorder) ?F43.10 - Post-traumatic stress disorder, unspecified (ICD-10) Panic attack ?F41.0 - Panic disorder [episodic paroxysmal anxiety] (ICD-10) Hyperlipidemia ?E78.5 - Hyperlipidemia, unspecified (ICD-10) Hypertension ?I10 - Essential (primary) hypertension (ICD-10) <Annie Han MD - Last Filed: 12/19/23 16:48> Surgical History: Surgical History No significant past surgical history <Annie Han MD - Last Filed: 12/19/23 16:48> Social History: Social History Smoking Status: Current every day smoker What tobacco products do you use: cigarettes Do you use any of these nicotine containing products: None Second hand tobacco smoke exposure: Yes How often do you have a drink containing alcohol: never How often do you have six or more drinks on one occasion: Never AUDIT-C Alcohol total score: 0 Non-prescribed substance use: marijuana (any form) Little interest or pleasure in doing things: not at all Feeling down, depressed, or hopeless: several days <Annie Han MD - Last Filed: 12/19/23 16:48> Exam Const: Vital Signs, click to edit/add: Vital Signs - 24 hr 12/17/23 12:22 12/17/23 16:33 12/17/23 18:43 Temperature 98.3 F Pulse Rate 60 Pulse Rate [Pulse Oximeter] 95 71 Respiratory Rate 18 18 Blood Pressure Blood Pressure [Ri ght Upper Arm] 156/89 H 139/93 H Pulse Oximetry 100 97 Oxygen Delivery Me thod Room Air Room Air 12/17/23 18:44 12/17/23 18:45 12/17/23 19:00 Temperature Pulse Rate 63 57 L Pulse Rate [Pulse Oximeter] 69 Respiratory Rate 20 Blood Pressure 149/101 H Blood Pressure [Ri ght Upper Arm] 145/106 H Pulse Oximetry 98 98 99 Oxygen Delivery Me od Room Air 12/17/23 19:00 12/17/23 19:02 12/17/23 19:15 Temperature Pulse Rate 68 75 78 Pulse Rate [Pulse Oximeter] Respiratory Rate Blood Pressure 145/106 H Blood Pressure [Ri ght Upper Arm] Pulse Oximetry 98 99 97 Oxygen Delivery Me thod 12/17/23 19:32 12/17/23 19:52 12/17/23 21:06 Temperature Pulse Rate 72 60 Pulse Rate [Pulse Oximeter] Respiratory Rate Blood Pressure 112/77 Blood Pressure [Ri ght Upper Arm] Pulse Oximetry 97 99 Oxygen Delivery Me thod 12/17/23 21:15 Temperature Pulse Rate 62 Pulse Rate [Pulse Oximeter] Respiratory Rate Blood Pressure Blood Pressure [Ri ght Upper Arm] Pulse Oximetry 100 Oxygen Delivery Me thod This 63-year-old male is alert, interactive, no apparent distress. He is ambulatory in the ER with normal gait, do watch and go to the bathroom. Face atraumatic, sclera clear, able to speak in complete sentences. Lungs are clear, good air entry, no wheezing or crackles, no CVA tenderness. CV regular rate and rhythm, no murmur, normal S1-S2, no S3-S4. Abdomen is soft, nondistended, complains of generalized lower abdominal pain but do not feel any masses, no rebound or guarding. Bowel sounds are present. He has no lower extremity edema. Did have nursing staff do bladder scan was less than 20 mL. <Annie Han MD - Last Filed: 12/19/23 16:48> Vital Signs, click to edit/add: Vital Signs - 24 hr 12/17/23 12:22 12/17/23 16:33 12/17/23 18:43 Temperature 98.3 F Pulse Rate 60 Pulse Rate [Pulse Oximeter] 95 71 Respiratory Rate 18 18 Blood Pressure Blood Pressure [Ri ght Upper Arm] 156/89 H 139/93 H Pulse Oximetry 100 97 Oxygen Delivery Me thod Room Air Room Air 12/17/23 18:44 12/17/23 18:45 12/17/23 19:00 Temperature Pulse Rate 63 57 L Pulse Rate [Pulse Oximeter] 69 Respiratory Rate 20 Blood Pressure 149/101 H Blood Pressure [Ri ght Upper Arm] 145/106 H Pulse Oximetry 98 98 99 Oxygen Delivery Me thod Room Air 12/17/23 19:00 12/17/23 19:02 12/17/23 19:15 Temperature Pulse Rate 68 75 78 Pulse Rate [Pulse Oximeter] Respiratory Rate Blood Pressure 145/106 H Blood Pressure [Ri ght Upper Arm] Pulse Oximetry 98 99 97 Oxygen Delivery Me thod 12/17/23 19:32 12/17/23 19:52 12/17/23 21:06 Temperature Pulse Rate 72 60 Pulse Rate [Pulse Oximeter] Respiratory Rate Blood Pressure 112/77 Blood Pressure [Ri ght Upper Arm] Pulse Oximetry 97 99 Oxygen Delivery Me thod 12/17/23 21:15 Temperature Pulse Rate 62 Pulse Rate [Pulse Oximeter] Respiratory Rate Blood Pressure Blood Pressure [Ri ght Upper Arm] Pulse Oximetry 100 Oxygen Delivery Me thod <Luis Chaves MD - Last Filed: 12/17/23 21:31> Documenting provider has reviewed patient's vital signs: yes <Annie Han MD - Last Filed: 12/19/23 16:48> Course Course ED Course: This is a 63-year-old male with lower abdominal pain without any significant GI symptoms or urinary symptoms. Will proceed with CT of his abdomen pelvis with IV contrast. Will get appropriate labs. Nursing staff did get urinalysis on arrival. <Annie Han MD - Last Filed: 12/19/23 16:48> Vital Signs Vital signs: Initial Vital Signs Temperature 98.3 F 12/17/23 12:22 Temperature Source Temporal Artery Scan 12/17/23 12:22 Pulse Rate 95 12/17/23 12:22 Respiratory Rate 18 12/17/23 12:22 Blood Pressure 156/89 H 12/17/23 12:22 Blood Pressure Mean 111 H 12/17/23 12:22 Blood Pressure Position Sitting 12/17/23 12:22 Oxygen Delivery Method Room Air 12/17/23 12:22 Vital Signs Temperature 98.3 F 12/17/23 12:22 Pulse Rate 95 12/17/23 12:22 Respiratory Rate 18 12/17/23 12:22 Blood Pressure 156/89 H 12/17/23 12:22 Oxygen Delivery Method Room Air 12/17/23 12:22 Temperature 98.3 F 12/17/23 12:22 Pulse Rate 62 12/17/23 21:15 Respiratory Rate 20 12/17/23 19:00 Blood Pressure 112/77 12/17/23 19:32 Pulse Oximetry 100 12/17/23 21:15 Oxygen Delivery Method Room Air 12/17/23 19:00 <Annie Han MD - Last Filed: 12/19/23 16:48> Initial Vital Signs Temperature 98.3 F 12/17/23 12:22 Temperature Source Temporal Artery Scan 12/17/23 12:22 Pulse Rate 95 12/17/23 12:22 Respiratory Rate 18 12/17/23 12:22 Blood Pressure 156/89 H 12/17/23 12:22 Blood Pressure Mean 111 H 12/17/23 12:22 Blood Pressure Position Sitting 12/17/23 12:22 Oxygen Delivery Method Room Air 12/17/23 12:22 Vital Signs Temperature 98.3 F 12/17/23 12:22 Pulse Rate 95 12/17/23 12:22 Respiratory Rate 18 12/17/23 12:22 Blood Pressure 156/89 H 12/17/23 12:22 Oxygen Delivery Method Room Air 12/17/23 12:22 Temperature 98.3 F 12/17/23 12:22 Pulse Rate 62 12/17/23 21:15 Respiratory Rate 20 12/17/23 19:00 Blood Pressure 112/77 12/17/23 19:32 Pulse Oximetry 100 12/17/23 21:15 Oxygen Delivery Method Room Air 12/17/23 19:00 <Luis Chaves MD - Last Filed: 12/17/23 21:31> Medications Administered Medications: Discontinued Medications Generic Name Dose Route Start Last Admin Trade Name Freq PRN Reason Stop Dose Admin Ketorolac Tromethamine 15 mg 12/17/23 20:58 12/17/23 21:07 Ketorolac 30 Mg/Ml Inj IVP 12/17/23 20:59 15 mg ONCE ONE Administration <Annie Han MD - Last Filed: 12/19/23 16:48> Discontinued Medications Generic Name Dose Route Start Last Admin Trade Name Freq PRN Reason Stop Dose Admin Ketorolac Tromethamine 15 mg 12/17/23 20:58 12/17/23 21:07 Ketorolac 30 Mg/Ml Inj IVP 12/17/23 20:59 15 mg ONCE ONE Administration <Luis Chaves MD - Last Filed: 12/17/23 21:31> Medical Decision Making [facility] Narrative Medical decision making narrative: Care for this patient was transferred to [place] at the end of Dr. Alvarez's shift. CT results of the abdomen returned with reassuring findings however there was suspicion of possible leak and part of the aorta to where it was recommended by Radiology to have a CT angiogram for further evaluation. This was obtained and there is no sign of such leak. 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 The patient does have a nonobstructive gallstone. He is reporting pain on and off over the past couple years and this may be related to his gallbladder as everything else is reassuring and not sufficient to explain his pain. The patient is okay to be discharged home. He did receive an IV dose of Toradol 15 mg. A prescription for Toradol as also provided. I advised him to follow-up with surgery clinic for ongoing management with regard to his abdominal pain and gallstones. <Luis Chaves MD - Last Filed: 12/17/23 21:31> Lab Data Lab results reviewed: Yes I reviewed the patient's lab results <Annie Han MD - Last Filed: 12/19/23 16:48> Labs: Lab Results 12/17/23 12/17/23 Range/Units 14:32 15:36 WBC 10.33 (4.50-11.00) K/uL RBC 5.08 (4.30-5.90) m/uL Hgb 12.9 L (13.5-17.5) gm/dL Hct 41.4 (37.0-53.0) % MCV 82 (80-100) fL MCH 25 L (26-34) pg MCHC 31 L (32-36) gm/dL RDW Coeff of Juanito 15.6 H (11.5-15.5) % Plt Count 311 (140-440) K/uL Neut % (Auto) 66.3 (42.0-72.0) % Lymph % (Auto) 20.6 (20-44) % Durham % (Auto) 7.3 (0.0-11.0) % Eos % (Auto) 4.5 (0.0-7.0) % Baso % (Auto) 0.2 (0.0-3.0) % Neut # (Auto) 6.86 (1.7-7.0) K/uL Lymph # (Auto) 2.13 (0.90-2.90) K/uL Durham # (Auto) 0.80 (0.00-0.90) K/UL Eos # (Auto) 0.46 (0.00-0.50) K/uL Baso # (Auto) 0.02 (0.00-0.30) K/uL Abs Immat Gran (auto) 0.11 (0.00-0.30) K/uL Imm/Tot Granulo (auto) 1.1 % Sodium 140 (135-149) mmol/L Potassium 3.8 (3.6-5.1) mmol/L Chloride 106 (96-114) mmol/L Carbon Dioxide 24 (20-32) mmol/L Anion Gap 10 (7-15) mEq/L BUN 9 (7-30) mg/dL Creatinine 1.3 (0.5-1.5) mg/dL Estimated Creat Clear 65.87 Estimated GFR 61 ml/min Glucose 102 (60-115) mg/dL Lactate 0.7 (0.5-1.9) mmol/L Calcium 9.6 (8.4-10.6) mg/dL Total Bilirubin 0.6 (0.1-1.5) mg/dL AST 21 (12-35) U/L ALT 16 (4-50) U/L Alkaline Phosphatase 103 (40-150) U/L C-Reactive Protein 2.7 H (0.5-1.0) mg/dL Total Protein 8.3 (6.0-8.3) g/dL Albumin 4.7 (3.3-5.0) g/dL Urine Color Yellow (Yellow) Urine Appearance Clear (Clear) Urine pH 5.5 (5.0-8.5) Ur Specific Campbell 1.025 (1.000-1.030) Urine Protein Negative (Negative) Urine Glucose (UA) Negative (Negative) Urine Ketones Negative (Negative) Urine Blood Trace-lysed A (Negative) Urine Nitrite Negative (Negative) Urine Bilirubin Negative (Negative) Urine Urobilinogen 0.2 (0.2-1.0) Ur Leukocyte Esterase Negative (Negative) Urine RBC 0-2 (0-2) Urine WBC 0-2 (0-5) Ur Squamous Epith Cells Few (None-Few) Amorphous Sediment Few A (None) Urine Bacteria None (None) <Annie Han MD - Last Filed: 12/19/23 16:48> Lab Results 12/17/23 12/17/23 Range/Units 14:32 15:36 WBC 10.33 (4.50-11.00) K/uL RBC 5.08 (4.30-5.90) m/uL Hgb 12.9 L (13.5-17.5) gm/dL Hct 41.4 (37.0-53.0) % MCV 82 (80-100) fL MCH 25 L (26-34) pg MCHC 31 L (32-36) gm/dL RDW Coeff of Juanito 15.6 H (11.5-15.5) % Plt Count 311 (140-440) K/uL Neut % (Auto) 66.3 (42.0-72.0) % Lymph % (Auto) 20.6 (20-44) % Durham % (Auto) 7.3 (0.0-11.0) % Eos % (Auto) 4.5 (0.0-7.0) % Baso % (Auto) 0.2 (0.0-3.0) % Neut # (Auto) 6.86 (1.7-7.0) K/uL Lymph # (Auto) 2.13 (0.90-2.90) K/uL Durham # (Auto) 0.80 (0.00-0.90) K/UL Eos # (Auto) 0.46 (0.00-0.50) K/uL Baso # (Auto) 0.02 (0.00-0.30) K/uL Abs Immat Gran (auto) 0.11 (0.00-0.30) K/uL Imm/Tot Granulo (auto) 1.1 % Sodium 140 (135-149) mmol/L Potassium 3.8 (3.6-5.1) mmol/L Chloride 106 (96-114) mmol/L Carbon Dioxide 24 (20-32) mmol/L Anion Gap 10 (7-15) mEq/L BUN 9 (7-30) mg/dL Creatinine 1.3 (0.5-1.5) mg/dL Estimated Creat Clear 65.87 Estimated GFR 61 ml/min Glucose 102 (60-115) mg/dL Lactate 0.7 (0.5-1.9) mmol/L Calcium 9.6 (8.4-10.6) mg/dL Total Bilirubin 0.6 (0.1-1.5) mg/dL AST 21 (12-35) U/L ALT 16 (4-50) U/L Alkaline Phosphatase 103 (40-150) U/L C-Reactive Protein 2.7 H (0.5-1.0) mg/dL Total Protein 8.3 (6.0-8.3) g/dL Albumin 4.7 (3.3-5.0) g/dL Urine Color Yellow (Yellow) Urine Appearance Clear (Clear) Urine pH 5.5 (5.0-8.5) Ur Specific Campbell 1.025 (1.000-1.030) Urine Protein Negative (Negative) Urine Glucose (UA) Negative (Negative) Urine Ketones Negative (Negative) Urine Blood Trace-lysed A (Negative) Urine Nitrite Negative (Negative) Urine Bilirubin Negative (Negative) Urine Urobilinogen 0.2 (0.2-1.0) Ur Leukocyte Esterase Negative (Negative) Urine RBC 0-2 (0-2) Urine WBC 0-2 (0-5) Ur Squamous Epith Cells Few (None-Few) Amorphous Sediment Few A (None) Urine Bacteria None (None) <Luis Chaves MD - Last Filed: 12/17/23 21:31> Imaging Data CTA Abdomen: Radiologist's impression: 1. no aortic dissection identified. 2. Prominent and mildly enlarged mesenteric and abdominal lymph nodes with surrounding fat stranding may be indicative of mild inflammation. 3. Borderline enlarged ascending aorta measuring up to 39 millimeters in diameter. 4. Cholelithiasis without CT evidence of cholecystitis. 5. Benign left adrenal adenoma. <Luis Chaves MD - Last Filed: 12/17/23 21:31> Discharge Plan Discharge Clinical Impression: Abdominal pain, Cholelithiasis <Annie Han MD - Last Filed: 12/19/23 16:48> Patient Disposition: Home, Self-Care <Annie Han MD - Last Filed: 12/19/23 16:48> Condition: Stable <Annie Han MD - Last Filed: 12/19/23 16:48> Additional Instructions: Take medication as needed and indicated. Follow-up with surgery clinic for ongoing management of abdominal pain and gallstones. Call [phone] for appointment. Return if worsening. <Annie Han MD - Last Filed: 12/19/23 16:48> Prescriptions: No Action aspirin 81 mg tablet,delayed release (DR/EC) 81 mg PO QDAY zolpidem [Ambien] 10 mg tablet 10 mg PO QHS PRN (Reason: insomnia) Qty: 20 0RF triamcinolone acetonide 0.5 % cream 1 applic topical QDAY PRN (Reason: rash) Qty: 15 3RF escitalopram oxalate 10 mg tablet 5 mg PO QDAY meclizine 25 mg tablet 25 mg PO QID PRN (Reason: dizziness) Qty: 20 0RF clonazepam 0.5 mg tablet 0.5 mg PO BID PRN (Reason: panic attacks) Qty: 14 0RF <Annie Han MD - Last Filed: 12/19/23 16:48> Follow Up/Referrals: Jean-Paul Arauz MD [Primary Care Provider] - <Annie Han MD - Last Filed: 12/19/23 16:48> Stand Alone Forms: [facility] Info Instructions <Annie Han MD - Last Filed: 12/19/23 16:48>
[2023-12-17 15:04] LABS: Amorphous Sediment Urine Few; RBC Urine 0-2 (0-2); Squamous Epithelial Cell Urine Few (None-Few); WBC Urine 0-2 (0-5)
--- NOTE | 2023-12-17 15:19 | CRLHL7_ITS ---
For Patients: As a result of the Century Cures Act, medical imaging exams and procedure reports are released immediately into your electronic medical record. You may view this report before your referring provider. If you have questions, please contact your health care provider. INDICATION: Lower abdominal pain. TECHNIQUE: CT abdomen and pelvis acquired with 104 mL Isovue 370 contrast. COMPARISON: None available. FINDINGS: Lower chest: Few subcentimeter pulmonary nodules, for example a 0.4 cm nodule in the left lower lobe (series 3, image 11). No focal consolidation. Liver: No suspicious focal hepatic lesion. Gallbladder and bile ducts: Cholelithiasis. No secondary signs of acute cholecystitis. Pancreas: Unremarkable. Spleen: Unremarkable. Adrenal glands: Indeterminate 1.0 cm left adrenal nodule. Kidneys: Kidneys enhance symmetrically, without hydronephrosis. Too small to characterize hypodense bilateral renal lesions. Retroperitoneum: No lymphadenopathy. Bowel and mesentery: Bowel is not obstructed. No significant ascites, no pneumoperitoneum. Bladder: Unremarkable for degree of distention. Reproductive organs: No prostatomegaly. Pelvic lymph nodes: No lymphadenopathy. Vessels: Extensive amount of calcified and noncalcified atherosclerotic plaque of the abdominal aorta. There is no aneurysmal dilation, however there is indistinctness of the posterior aortic wall at the level of the left renal vein, with ill-defined soft tissue density in the posterior retroperitoneum. Abdominal wall: No acute abdominal wall abnormality. Bones: Multilevel degenerative changes of the spine. No suspicious/aggressive focal osseous lesion. IMPRESSION: 1. Extensive amount of calcified and noncalcified atherosclerotic plaque of the abdominal aorta. Indistinctness of the posterior aortic wall at the level of the left renal vein, with ill-defined soft tissue density in the posterior retroperitoneum. Findings are worrisome for small aortic rupture. Correlate clinically, and recommend further evaluation with CTA if hemodynamically stable. 2. Indeterminate 1.0 cm left adrenal nodule. This could be further evaluated with MRI on a nonemergent basis. 3. Pulmonary nodules in the lung bases measuring up to 0.4 cm. Consider optional follow up CT chest in 12 months, per Fleischner guidelines. Please note that all CT scans at this facility use dose modulation, iterative reconstruction, and/or weight-based dosing when appropriate to reduce radiation dose to as low as reasonably achievable. Dictated by Kelvin Berumen MD @ 12/17/2023 6:34:29 PM (Electronically Signed)
[2023-12-17 15:44] LABS: Lactate* 0.7 mmol/L (0.5-1.9)
[2023-12-17 15:48] LABS: Basophils Absolute Auto 0.02 K/uL (0.00-0.30); Basophils Percent Auto 0.2 % (0.0-3.0); Eosinophils Absolute Auto 0.46 K/uL (0.00-0.50); Eosinophils Percent Auto 4.5 % (0.0-7.0); Hematocrit 41.4 % (37.0-53.0); Hemoglobin* 12.9 gm/dL (13.5-17.5); Immature Granulocytes Abs Auto 0.11 K/uL (0.00-0.30); Immature Granulocytes Pct Auto 1.1 %; Lymphocytes Absolute Auto 2.13 K/uL (0.90-2.90); Lymphocytes Percent Auto 20.6 % (20-44); Mean Corpuscular HGB Conc 31 gm/dL (32-36); Mean Corpuscular Hemoglobin 25 pg (26-34); Mean Corpuscular Volume 82 fL (80-100); Monocytes Percent Auto 7.3 % (0.0-11.0); Neutrophils Absolute Auto 6.86 K/uL (1.7-7.0); Neutrophils Percent Auto 66.3 % (42.0-72.0); Platelet Count* 311 K/uL (140-440); RDW Coefficient of Variation % 15.6 % (11.5-15.5); Red Blood Count 5.08 m/uL (4.30-5.90); White Blood Count* 10.33 K/uL (4.50-11.00)
--- OUTSIDE RECORDS SUMMARY | 2023-12-17 16:05 | XMS_ITS | Clinical Summary ---
Author Organization [facility] Address [place], [place] [address] Care Team Providers Care Tire Fixer Name Role Phone Pcp, No Primary Care [...] TABLET BY MOUTH AT BEDTIME 90 tablet 06/30/2017 Active clonazePAM (KLONOPIN) 0.5 mg tabletIndications:Anx iety associated with depression Take 1 tablet by mouth 2 times daily if needed for Anxiety. 60 tablet 08/12/2017 Active Active Problems Problem Noted Date [...] Comments Blood Pressure 157/84 05/24/2018 4:24 PM [employer] Pulse 84 05/24/2018 4:24 PM [employer] Temperature 36.7 ??C (98.1 ??F) 08/28/2016 10:58 AM C DT Respiratory Rate 16 05/24/2018 4:24 PM [employer] Oxygen Saturation 100% 09/16/2016 9:16 AM CDT Inhaled Oxygen Concentration - - Weight 97.5 kg (215 lb) 05/24/2018 12:46 PM [employer] Height 185.5 cm (6' 1.03) 08/28/2016 10:58 AM C DT Body Mass Index 28.34 08/28/2016 10:58 AM CDT Plan of Treatment Health Maintenance Due Date Last Done Comments Tdap 1969 HIV for age 15-65 1973 Hepatitis C screening for ag e 18-79 02/19/1976 Tetanus booster 1978 Colonoscopy through age 75 2003 Zoster (shingles) series for age 50+ (1 of 2) 02/19/2008 BMI (ht and wt on same day) for age 18+ 08/28/2017 08/28/2016 Depression screening for age 12+ 05/26/2019 05/26/2018, 05/24/2018, 12/24/2016, Additional history exists Lipids for age 45-75 09/03/2021 09/03/2016 COVID-19 vaccine series ( - 2022-24 season) 2022 Pneumococcal series for age 65+ (1 of 1 - PCV) 2023 Influenza for age 65+ 12/20/2023 Procedures Procedure Name Priority Date/Time Associated Diagnosis Comments LIPID PANEL W REFLEX MEASURED LDL Routine 09/03/2016 9:59 AM CDT Hyperlipidemia, unspecified from Last 3 Months or Most Recently Relevant to Health Maintenance Results * (ABNORMAL) LIPID PANEL W REFLEX MEASURED LDL (09/03/2016 9:59 AM CDT) CHOLESTEROL,TOTAL 263(H) 100 - 199 mg/dL 09/03/2016 5:03 PM CDT [facility] TRIGLYCERIDES 223(H) <150 mg/dL 09/03/2016 5:03 PM CDT [facility] HDL CHOLESTEROL 31(L) >40 mg/dL 7 5:03 PM CDT [facility] NON-HDL CHOLESTEROL 232(H) <145 mg/dl 09/03/2016 5:03 PM CDT [facility] CHOL/HDL RATIO 8.48(H) <4.50 09/03/2016 5:03 PM CDT [facility] LDL CHOLESTEROL 187(H) <=130 mg/dL 09/03/2016 5:03 PM CDT [facility] PATIENT STATUS FASTING 09/03/2016 5:03 PM CDT [facility] Blood BLOOD SPECIMEN / Unknown Venipuncture / Unknown 09/03/2016 9:59 AM CDT 09/03/2016 9:59 AM CDT Samson Cantu DO CHEMISTRY [facility] [address] [place] [address], [facility] [address] [place] [address], from Last 3 Months or Most Recently Relevant to Health Maintenance Care Teams Tire Fixer Relationship Specialty Start Date End Date Pcp, No . PCP - General 01/05/20
[2023-12-17 16:08] LABS: Slide Review Reflex No
[2023-12-17 16:11] LABS: Albumin* 4.7 g/dL (3.3-5.0); Chloride* 106 mmol/L (96-114); Sodium* 140 mmol/L (135-149)
[2023-12-17 16:12] LABS: Potassium* 3.8 mmol/L (3.6-5.1)
[2023-12-17 16:14] LABS: Alanine Aminotransferase* 16 U/L (4-50); Alkaline Phosphatase* 103 U/L (40-150); Anion Gap 10 mEq/L (7-15); Aspartate Amino Transferase* 21 U/L (12-35); Bilirubin Total* 0.6 mg/dL (0.1-1.5); Carbon Dioxide* 24 mmol/L (20-32); Creatinine* 1.3 mg/dL (0.5-1.5); Est. Creatinine Clearance* 65.87; Estimated Glomerular Filt Rate 61 ml/min; Total Protein* 8.3 g/dL (6.0-8.3)
[2023-12-17 16:15] LABS: Blood Urea Nitrogen* 9 mg/dL (7-30); Calcium* 9.6 mg/dL (8.4-10.6); Glucose* 102 mg/dL (60-115)
[2023-12-17 16:17] LABS: C Reactive Protein* 2.7 mg/dL (0.5-1.0)
--- NOTE | 2023-12-17 19:00 | CRLHL7_ITS ---
For Patients: As a result of the Century Cures Act, medical imaging exams and procedure reports are released immediately into your electronic medical record. You may view this report before your referring provider. If you have questions, please contact your health care provider. INDICATION: Abdominal pain.. TECHNIQUE: CT chest without contrast and CT chest, abdomen and pelvis acquired with 95 cc Omnipaque 350 IV contrast, dissection protocol. COMPARISON: None. FINDINGS: CHEST: Cardiovascular structures: The unenhanced images demonstrate no evidence of aortic intramural thrombus. Ascending aorta demonstrates borderline ectasia measuring 39 millimeters in diameter. No evidence of dissection in the thoracic aorta.. Heart size is normal. Coronary artery calcifications are noted. Mediastinum and kumar: No mass or adenopathy. Lungs and pleura: Mild emphysematous changes. No consolidations. No suspicious pulmonary nodules. Chest wall and axilla: No mass or adenopathy. Bones: Unremarkable for age. ABDOMEN AND PELVIS: Liver: Unremarkable. Gallbladder and bile ducts: Cholelithiasis without CT evidence of cholecystitis. Pancreas: Unremarkable. Spleen: Unremarkable. Adrenal glands: Left adrenal adenoma measuring 16 millimeters in diameter. Right adrenal gland is unremarkable. Kidneys: No hydronephrosis or hydroureter. No renal or ureteral stones identified. GI tract: No bowel obstruction. Appendicolith at the base of the appendix. Appendix is within normal limits otherwise. Vascular structures: Abdominal aorta is normal in caliber without evidence of dissection. Diffuse soft plaque atherosclerosis, to a moderate to severe degree in the abdominal aorta. Lymph nodes: Multiple prominent and mildly enlarged mesenteric lymph nodes are identified with surrounding subtle fat stranding indicative of inflammation. Miscellaneous: Unremarkable. No free air or significant free fluid. Pelvic Organs: Unremarkable. Bones: Unremarkable for age. IMPRESSION: 1. no aortic dissection identified. 2. Prominent and mildly enlarged mesenteric and abdominal lymph nodes with surrounding fat stranding may be indicative of mild inflammation. 3. Borderline enlarged ascending aorta measuring up to 39 millimeters in diameter. 4. Cholelithiasis without CT evidence of cholecystitis. 5. Benign left adrenal adenoma. Please note that all CT scans at this facility use dose modulation, iterative reconstruction, and/or weight-based dosing when appropriate to reduce radiation dose to as low as reasonably achievable. Dictated by Belinda Weaver MD @ 12/17/2023 9:13:30 PM (Electronically Signed)
[2023-12-17] MEDS: KETOROLAC 30 MG/ML inj 15 MG IVP (21:07)
== END 2023-12-17 21:40 | disposition home or self-care (01) ==
PROVIDERS: Emergency Provider Family Medicine; PCP Internal Medicine
DX: K80.20 Calculus of gallbladder without cholecystitis without obstruction (principal)
CPT/HCPCS: 36415; 51798; 71275; 74174; 74177; 80053; 81001; 83605; 85025; 86140; 96374; 99284; J1885; Q9967

== ENCOUNTER 2024-06-24 14:25 | Emergency (ER) | payer MEDICAID, SELFPAY ==
--- OUTSIDE RECORDS SUMMARY | 2024-06-24 14:27 | XMS_ITS | Referral Summary ---
Author Organization [facility] Address [address] [address] Care Team Providers Care Med Surg Nurse Name Role Phone Yamilka Mejía RN Unavailable [phone] Jessica Beltran RN Unavailable [phone] Source Comments [facility],non-owned Affiliates and Associated Physician Practices is amultiple site organization consisting of ambulatory clinics and hospital sitesin [place], [place], [place] and [place]. This disclosure is being madepursuant to the Care Everywhere program and may not contain all information available regarding this patient. Last updated 18.[facility] Allergies No known active allergies Medications * Be aware that medications may not be up to date on this document. Alwaysverify current medications with the patient. Medication Sig Dispensed Refills Start Date End Date Status lovastatin (MEVACOR) 40 MG tabletIndications:Hi gh Cholesterol Take 40 mg by mouth at bedtime Reasons: High Cholesterol Active hydrochlorothiazide (HYDRODIURIL) 50 MG tabletIndications:Hy pertension Take 50 mg by mouth once daily Reasons: High Blood Pressure Active clonazePAM (KLONOPIN) 0.5 MG tabletIndications:An xiety Take 1 Tab by mouth 3 times daily Reasons: Feeling Anxious 90 Tab 0 01/22/2015 Active FLUoxetine (PROZAC) 20 MG capsuleIndications:M ajor Depressive Disorder Take 1 Cap by mouth once daily Reasons: Major Depressive Disorder 30 Cap 1 01/22/2015 Active ibuprofen (MOTRIN) 600 MG tablet Take 1 Tab by mouth every 6 hours as needed for Pain 20 Tab 0 11/05/2015 Active traMADol (ULTRAM) 50 MG tablet Take 1 Tab by mouth every 6 hours as needed for Pain 10 Tab 0 11/05/2015 Active Active Problems Problem Noted Date Diagnosed Date Chest pain 06/26/2013 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 Social History Tobacco Use Types Packs/Day Years Used Date Smoking Tobacco: Every Day Cigarettes 0.3 40 Tobacco Cessation:Ready to Q uit: No; Counseling Given: Yes Alcohol Use Standard Drinks/Week Comments No 0 (1 standard drink = 0.6 oz pur e alcohol) Sex and Gender Information Value Date Recorded Sex Assigned at Not on file Gender Identity Not on file Sexual Orientation Not on file Last Filed Vital Signs Vital Sign Reading Time Taken Comments Blood Pressure 132/94 11/05/2015 3:55 AM CDT Pulse 56 11/05/2015 3:55 AM CDT Temperature 36.8 C (98.3 F) 11/04/2015 11:06 PM CDT Respiratory Rate 16 11/05/2015 3:55 AM CDT Oxygen Saturation 97% 11/04/2015 11:06 PM CDT Inhaled Oxygen Concentration - - Weight 93.4 kg (206 lb) 11/04/2015 10:57 PM CDT Height 190.5 cm (6' 3) 11/04/2015 10:57 PM CDT Body Mass Index 25.75 11/04/2015 10:57 PM CDT Functional Status Functional Status Response Date of Assess ment Is person deaf or have serious hearing difficult y? No 01/13/2015 Is person blind or have serious difficulty seein g? No 01/13/2015 Does person have serious dif ficulty walking/climbing stairs? No 01/13/2015 Does person have difficulty dressing/bathing? No 01/13/2015 Does person have difficulty doing errands alone? No 01/13/2015 Cognitive Status Response Date of Assessm ent Does person have difficulty concentrating/remembering/making decisions? No 01/13/2015 Plan of Treatment Not on file Advance Directives * Full Code (Latest Code Status on File) Date Activated Date Inactivated Comments 01/13/2015 9:57 PM 01/22/2015 12:51 PM * Full Code Date Activated Date Inactivated Comments 06/29/2013 6:13 PM 06/30/2013 11:01 AM * Full Code Date Activated Date Inactivated Comments 06/27/2013 12:30 AM 06/29/2013 1:59 PM * Full Code Date Activated Date Inactivated Comments 06/27/2013 12:21 AM 06/27/2013 12:30 AM * FULL RESUSCITATION Date Activated Date Inactivated Comments 08/13/2012 10:18 PM 08/16/2012 9:21 PM Care Teams Med Surg Nurse Relationship Specialty Start Date End Date Yamilka Mejía RN Size Cutter 06/27/13 Jessica Beltran RN Size Cutter 06/30/13
--- OUTSIDE RECORDS SUMMARY | 2024-06-24 14:27 | XMS_ITS | Patient Health Summary ---
Author Organization [facility] Address [address] [place] [address] Care Team Providers Care [facility] Division Chief Name Role Phone Yamilka Mejía RN Unavailable [phone] Jessica Beltran RN Unavailable Note from [facility],non-owned Affiliates and Associated Physician Practices is amultiple site organization consisting of ambulatory clinics and hospital sitesin [place], [place], [place] and [place]. This disclosure is being madepursuant to the Care Everywhere program and may not contain all information available regarding this patient. Last updated 18.[facility] Allergies No known active allergies Medications * Be aware that medications may not be up to date on this document. Alwaysverify current medications with the patient. * lovastatin (MEVACOR) 40 MG tablet Take 40 mg by mouth at bedtime Reasons: High Cholesterol * hydrochlorothiazide (HYDRODIURIL) 50 MG tablet Take 50 mg by mouth once daily Reasons: High Blood Pressure * clonazePAM (KLONOPIN) 0.5 MG tablet(Started 01/22/2015) Take 1 Tab by mouth 3 times daily Reasons: Feeling Anxious * FLUoxetine (PROZAC) 20 MG capsule(Started 01/22/2015) Take 1 Cap by mouth once daily Reasons: Major Depressive Disorder 1 refill left * ibuprofen (MOTRIN) 600 MG tablet(Started 11/05/2015) Take 1 Tab by mouth every 6 hours as needed for Pain * traMADol (ULTRAM) 50 MG tablet(Started 11/05/2015) Take 1 Tab by mouth every 6 hours as needed for Pain Active Problems Problem Noted Date Diagnosed Date [...] Mass Index 25.75 11/04/2015 10:57 PM CDT Procedures * CARDIAC EKG ORDER(Performed 11/06/2015) * TROPONIN I(Performed 11/05/2015) * CT NECK SOFT TISSUE W CONT(Performed 11/05/2015) * COMPREHENSIVE METABOLIC PANEL(Performed 11/05/2015) * CBC W AUTO DIFFERENTIAL(Performed 11/05/2015) * TROPONIN I(Performed 11/05/2015) * XR CHEST 2VW(Performed 11/05/2015) * EKG 12-LEAD(Performed 11/04/2015) * RPR(Performed 01/13/2015) * URINE MICROSCOPIC ONLY(Performed 01/13/2015) * COMPREHENSIVE METABOLIC PANEL(Performed 01/13/2015) * CBC W AUTO DIFFERENTIAL(Performed 01/13/2015) * TSH(Performed 01/13/2015) * URINALYSIS REFLEX TO MICROSCOPIC NO CULTURE(Performed 01/13/2015) * URINE DRUG SCREEN IMMUNOASSAY(Performed 01/13/2015) * XR CHEST 1VW PORTABLE(Performed 01/12/2015) * CT HEAD WO CONTRAST(Performed 01/12/2015) * TROPONIN I(Performed 01/12/2015) * DRUG SCREEN TOX LIMITED BLD PNL 3 INHOUSE(Performed 01/12/2015) * COMPREHENSIVE METABOLIC PANEL(Performed 01/12/2015) * CBC W AUTO DIFFERENTIAL(Performed 01/12/2015) * EKG 12-LEAD(Performed 01/12/2015) * MAGNESIUM BLOOD(Performed 09/28/2014) * COMPREHENSIVE METABOLIC PANEL(Performed 09/28/2014) * CBC W AUTO DIFFERENTIAL(Performed 09/28/2014) * TROPONIN I(Performed 09/28/2014) * XR CHEST 1VW PORTABLE(Performed 09/28/2014) * EKG 12-LEAD(Performed 09/28/2014) * CARDIAC PROCEDURE ORDER(Performed 07/26/2013) * CARDIAC RHYTHM STRIP ORDER(Performed 07/01/2013) * CARDIAC RHYTHM STRIP ORDER(Performed 06/30/2013) * EKG 12-LEAD(Performed 06/30/2013) Performed for Tachy-henry syndrome (HCC) * IP CONSULT TO ELECTROPHYSIOLOGY(Performed 06/29/2013) * EP LAB CONSULT(Performed 06/29/2013) * EP LAB CONSULT(Performed 06/29/2013) * IP CONSULT TO ELECTROPHYSIOLOGY(Performed 06/28/2013) * MAGNESIUM BLOOD(Performed 06/28/2013) * IP CONSULT TO CARDIOLOGY(Performed 06/27/2013) Performed for Chest pain, Near syncope, Hyperlipidemia, GERD (gastroesophageal reflux disease), Autonomic dysfunction, Tachy-henry syndrome (HCC) * NM MYOCARD PERF REST STRESS(Performed 06/27/2013) Performed for Chest pain, unspecified * ECHOCARDIOGRAM 2D WITH DOPPLER(Performed 06/27/2013) Performed for Chest pain, Near syncope, Hyperlipidemia, GERD (gastroesophageal reflux disease), Autonomic dysfunction, Tachy-henry syndrome (HCC), Chest pain, unspecified * STRESS TEST LEXISCAN (NUCLEAR)(Performed 06/27/2013) Performed for Chest pain * TSH(Performed 06/27/2013) Performed for Chest pain, Near syncope, Hyperlipidemia, GERD (gastroesophageal reflux disease), Autonomic dysfunction, Tachy-henry syndrome (HCC) * CBC W AUTO DIFFERENTIAL(Performed 06/27/2013) * BASIC METABOLIC PANEL (CALCIUM TOTAL)(Performed 06/27/2013) * TROPONIN I(Performed 06/27/2013) * LIPID PROFILE(Performed 06/27/2013) Performed for Chest pain * TROPONIN I(Performed 06/26/2013) * XR CHEST 2VW(Performed 06/26/2013) Performed for Chest pain * COMPREHENSIVE METABOLIC PANEL(Performed 06/26/2013) * CBC W AUTO DIFFERENTIAL(Performed 06/26/2013) * TROPONIN I(Performed 06/26/2013) * EKG 12-LEAD(Performed 06/26/2013) Performed for Chest pain * CARDIAC RHYTHM STRIP ORDER(Performed 08/25/2012) * CARDIAC EKG ORDER(Performed 08/16/2012) * STRESS TEST NUCLEAR(Performed 08/16/2012) Performed for Chest Pain, Tachy-henry syndrome (HCC) * NM MYOCARD PERF REST STRESS(Performed 08/16/2012) Performed for Chest Pain, Unspecified * ECHOCARDIOGRAM 2D WITH DOPPLER(Performed 08/16/2012) Performed for Chest Pain, Tachy-henry syndrome (HCC) * HEMOGLOBIN A1C(Performed 08/15/2012) Performed for Chest Pain * LIPID PROFILE(Performed 08/15/2012) Performed for Chest Pain, Tachy-henry syndrome (HCC) * D-DIMER(Performed 08/14/2012) Performed for Chest Pain, Tachy-henry syndrome (HCC) * TROPONIN I(Performed 08/14/2012) * T4 FREE(Performed 08/14/2012) Performed for Chest Pain, Tachy-henry syndrome (HCC) * URINE DRUG SCREEN IMMUNOASSAY(Performed 08/14/2012) Performed for Chest Pain * TSH(Performed 08/14/2012) Performed for Chest Pain * TROPONIN I(Performed 08/14/2012) * XR CHEST 1VW PORTABLE(Performed 08/13/2012) Performed for Chest Pain * PTT(Performed 08/13/2012) * PT-INR(Performed 08/13/2012) * MAGNESIUM BLOOD(Performed 08/13/2012) * MYOGLOBIN BLOOD(Performed 08/13/2012) * TROPONIN I(Performed 08/13/2012) * COMPREHENSIVE METABOLIC PANEL(Performed 08/13/2012) * CBC W AUTO DIFFERENTIAL(Performed 08/13/2012) * EKG 12-LEAD(Performed 08/13/2012) Performed for Chest Pain * CARDIAC EKG ORDER(Performed 08/01/2011) * URINALYSIS REFLEX TO MICROSCOPIC NO CULTURE(Performed 07/31/2011) * PTT(Performed 07/31/2011) * PT-INR(Performed 07/31/2011) * MAGNESIUM BLOOD(Performed 07/31/2011) * MYOGLOBIN BLOOD(Performed 07/31/2011) * TROPONIN I(Performed 07/31/2011) * COMPREHENSIVE METABOLIC PANEL(Performed 07/31/2011) * CBC W AUTO DIFFERENTIAL(Performed 07/31/2011) * EKG 12-LEAD(Performed 07/31/2011) Results * CARDIAC EKG ORDER (11/06/2015 4:06 PM CDT) Only the most recent of3 resultswithin the time period is included. Narrative 11/06/2015 4:06 PM CDT Ordered by an unspecified provider. Scanned Document CARDIAC SERVICES ORD ERABLES * TROPONIN I (11/05/2015 5:20 AM CDT) Only the most recent of11 resultswithin the time period is included. Troponin I <0.015 0.000 - 0.049 ng/mL 11/05/2015 5:47 AM CDT [facility] Blood BLOOD SPECIMEN / Unknown 11/05/2015 5:20 AM CDT 11/05/2015 5:24 AM CDT Narrative [facility] - 11/05/2015 5:47 AM CDT Note: Diagnosis of myocardial infarction requires symptoms of ischemia or EKG changes of ischemia and Troponin I >99th of normal (0.05 ng/mL). Troponin should be drawn on initial assessment and 3-6 hours later as clinically indicated. Any condition resulting in myocardial cell damage can increase cardiac troponin levels. In addition to myocardial infarction, these include but are not limited to congestive heart failure (CHF), arrhythmia, myocarditis, and non-cardiac related causes such as pulmonary embolism, renal failure and sepsis. Shawn Unger DO LAB - CHEMISTRY FARZADE MIKE [facility] [address] [place] [address] * CT SOFT TISSUE NECK WITH CONTRAST (11/05/2015 4:22 AM CDT) Anatomical Region Laterality Modality Head Computed Tomogra phy 11/05/2015 7:49 AM CDT Narrative 11/05/2015 7:53 AM CDT Examination: CT neck with contrast. Indication for examination: Neck pain, left-sided facial swelling. Dental infection.. An emergency contrast-enhanced CT examination of the neck is performed with thin section helical technique with additional sagittal and coronal reconstructions. 80 cc Omnipaque contrast were used. Comparison is made with November 17, 2007. Preliminary interpretation was provided by [facility]. No discrete cystic or solid neck mass is identified. Major salivary glands are symmetric. There are no abnormally enlarged or suspicious appearing cervical lymph nodes. There is no significant superficial or deep soft tissue edema. There is mucosal thickening at the floor of the left maxillary sinus. No air-fluid level. Paranasal sinuses are otherwise well aerated. No acute bone destruction is identified. There are multiple dental caries most marked on the left side superiorly. Conclusion: Unremarkable CT neck examination as described. No acute bone destruction. Dental disease most marked on the left side superiorly. Procedure Note William Pack MD - 11/05/2015 Examination: CT neck with contrast. Indication for examination: Neck pain, left-sided facial swelling. Dental infection.. An emergency contrast-enhanced CT examination of the neck is performed with thin section helical technique with additional sagittal and coronal reconstructions. 80 cc Omnipaque contrast were used. Comparison is made with November 17, 2007. Preliminary interpretation was provided by [facility]. No discrete cystic or solid neck mass is identified. Major salivary glands are symmetric. There are no abnormally enlarged or suspicious appearing cervical lymph nodes. There is no significant superficial or deep soft tissue edema. There is mucosal thickening at the floor of the left maxillary sinus. No air-fluid level. Paranasal sinuses are otherwise well aerated. No acute bone destruction is identified. There are multiple dental caries most marked on the left side superiorly. Conclusion: Unremarkable CT neck examination as described. No acute bone destruction. Dental disease most marked on the left side superiorly. Shawn Unger DO CT ORDERABLES * (ABNORMAL) COMPREHENSIVE METABOLIC PANEL (11/05/2015 2:30 AM CDT) Only the most recent of7 resultswithin the time period is included. Glucose 110(H) 74 - 106 mg/dL 11/05/2015 3:34 AM CDT [facility] Sodium 141 136 - 145 mmol/L 11/05/2015 3:34 AM CDT [facility] Potassium 3.8 3.5 - 5.1 mmol/L 11/05/2015 3:34 AM CDT [facility] Chloride 101 98 - 107 mmol/L 11/05/2015 3:34 AM CDT [facility] CO2 29 22 - 31 mmol/L 11/05/2015 3:34 AM CDT [facility] Calcium 9.9 8.5 - 10.1 mg/dL 11/05/2015 3:34 AM CDT [facility] Anion Gap 11 5 - 20 mmol/L 11/05/2015 3:34 AM CDT [facility] BUN 9 7 - 21 mg/dL 11/05/2015 3:34 AM CDT [facility] Creatinine 1.30 0.50 - 1.30 mg/dL 11/05/2015 3:34 AM CDT [facility] Alkaline Phosphatase 89 38 - 126 U/L 11/05/2015 3:34 AM CDT [facility] ALT 22 13 - 61 U/L 11/05/2015 3:34 AM CDT [facility] Comment:See reference range update AST 21 5 - 40 U/L 11/05/2015 3:34 AM CDT [facility] Protein Total 8.0 6.4 - 8.2 gm/dL 11/05/2015 3:34 AM CDT [facility] Albumin 4.1 3.4 - 5.0 gm/dL 11/05/2015 3:34 AM CDT [facility] Bilirubin Total 0.5 0.2 - 1.0 mg/dL 11/05/2015 3:34 AM CDT [facility] eGFR by MDRD 57(L) >60 mL/min/1.7 3m2 11/05/2015 3:34 AM CDT [facility] eGFR by MDRD >60 >60 mL/min/1.7 3m2 11/05/2015 3:34 AM CDT [facility] Blood BLOOD SPECIMEN / Unknown 11/05/2015 2:30 AM CDT 11/05/2015 3:21 AM CDT Shawn Unger DO LAB - CHEMISTRY GÉNESIS MCKEON [facility] [address] [place] [address] * (ABNORMAL) CBC W AUTO DIFFERENTIAL (11/05/2015 2:23 AM CDT) Only the most recent of8 resultswithin the time period is included. WBC 11.1(H) 4.4 - 10.7 x10E9/L 11/05/2015 2:29 AM CDT [facility] WBC Corrected x10E9/L 11/05/2015 2:29 AM CDT [facility] RBC 4.94 3.80 - 5.40 x10E12/L 11/05/2015 2:29 AM CDT [facility] Hemoglobin 13.6 12.0 - 17.6 gm/dL 11/05/2015 2:29 AM CDT [facility] Hematocrit 41.4 35.2 - 51.7 % 11/05/2015 2:29 AM CDT [facility] MCV 83.8 80.7 - 98.3 fl 11/05/2015 2:29 AM CDT [facility] MCH 27.5 26.7 - 34.0 pg 11/05/2015 2:29 AM CDT [facility] MCHC 32.9 30.8 - 35.9 gm/dL 11/05/2015 2:29 AM CDT [facility] Platelet Count 254 153 - 416 x10E9/L 11/05/2015 2:29 AM CDT [facility] RDW-CV 13.6 12.1 - 14.9 % 11/05/2015 2:29 AM CDT [facility] MPV 9.1(L) 9.4 - 12.9 fl 11/05/2015 2:29 AM CDT [facility] Neutrophils % 68.0 44.0 - 73.0 % 11/05/2015 2:29 AM CDT [facility] Lymphocytes % 19.3(L) 20.0 - 43.0 % 11/05/2015 2:29 AM CDT [facility] Monocytes % 9.4 5.0 - 13.0 % 11/05/2015 2:29 AM CDT [facility] Eosinophils % 2.7 0.0 - 6.0 % 11/05/2015 2:29 AM CDT [facility] Basophils % 0.3 0.0 - 2.0 % 11/05/2015 2:29 AM CDT [facility] Immature Granulocytes 0.3 0 - 1 % 11/05/2015 2:29 AM CDT [facility] Neutrophil Absolute 7.58(H) 2.01 - 7.14 x10E9/L 11/05/2015 2:29 AM CDT [facility] Lymphocytes Absolute 2.15 1.07 - 3.94 x10E9/L 11/05/2015 2:29 AM CDT [facility] Monocytes Absolute 1.05 0.26 - 1.07 x10E9/L 11/05/2015 2:29 AM CDT [facility] Eosinophils Absolute 0.30 0 - 0.47 x10E9/L 11/05/2015 2:29 AM CDT [facility] Basophils Absolute 0.03 0 - 0.08 x10E9/L 11/05/2015 2:29 AM CDT [facility] Immature Granulocytes Absolute 0.03 0.00 - 0.06 x10E9/L 11/05/2015 2:29 AM CDT [facility] nRBC Auto 0 /100 WBC 11/05/2015 2:29 AM CDT [facility] Blood BLOOD SPECIMEN / Unknown 11/05/2015 2:23 AM CDT 11/05/2015 2:26 AM CDT Shawn Unger DO LAB - HEMATOLOGY ORD ERABLES [facility] [address] [place] [address] * XR CHEST PA AND LATERAL (11/05/2015 2:18 AM CDT) Only the most recent of2 resultswithin the time period is included. Anatomical Region Laterality Modality Chest Radiographic Eve ging 11/05/2015 2:20 AM CDT Impressions 11/05/2015 2:21 AM CDT No active disease Narrative 11/05/2015 2:21 AM CDT Chest Two Views History: Chest pain Comparison:January 12, 2015 Findings: The heart size is normal. The pulmonary vessels are normal. The lungs are clear. No lobar consolidation or pleural effusion. No paraspinal soft tissue swelling.No hilar enlargement or major airway displacement. Implanted subcutaneous monitor, as before Procedure Note Jerson Mohr MD - 11/05/2015 Chest Two Views History: Chest pain Comparison:January 12, 2015 Findings: The heart size is normal. The pulmonary vessels are normal. The lungs are clear. No lobar consolidation or pleural effusion. No paraspinal soft tissue swelling.No hilar enlargement or major airway displacement. Implanted subcutaneous monitor, as before IMPRESSION No active disease Shawn Unger DO DIAGNOSTIC IMAGING O RDERABLES * EKG 12-LEAD (11/04/2015 11:03 PM CDT) Only the most recent of7 resultswithin the time period is included. Ventricular Rate 102 BPM [facility] Atrial Rate 102 BPM [facility] P-R Interval 126 ms [facility] QRS Duration ms 78 ms [facility] Q-T Interval ms 354 ms [facility] QTC Calculation (Bezet) 461 ms [facility] Calculated P [place] 73 degrees [facility] Calculated R [place] 24 degrees [facility] Calculated T [place] 51 degrees [facility] Interpretation EKG Sinus tachycardia Otherwise normal ECG Confirmed by MARGARITA JONES MD ([id number]) on 11/05/2015 8:21:49 AM [facility] 11/04/2015 11:0 3 PM CDT 11/05/2015 8:21 AM CDT Shawn Unger DO ECG ORDERABLES Performing Organization Address City/[facility] Co de Phone Number [facility] * RPR (01/13/2015 10:16 PM CDT) Pathologist [facility] RPR Non Reactive Non Reactive 01/14/2015 10:11 AM CDT [facility] Blood BLOOD SPECIMEN / Unknown 01/13/2015 10:16 PM CDT 01/13/2015 10:30 PM CDT Demario Liu MD LAB - CHEMISTRY OR DERABLES [facility] [address] [place] [address] * (ABNORMAL) URINALYSIS ROUTINE AUTO (01/13/2015 10:15 PM CDT) Only the most recent of2 resultswithin the time period is included. Color UA Dark Yellow Straw, Yellow, Dark Yellow 01/13/2015 10:46 PM CDT [facility] Clarity UA Clear 01/13/2015 10:46 PM CDT [facility] Specific Hay UA 1.030 1.005 - 1.030 01/13/2015 10:46 PM CDT [facility] pH UA 5.5 5.0 - 8.0 pH 01/13/2015 10:46 PM CDT [facility] Protein UA Trace(A) Negative 01/13/2015 10:46 PM CDT [facility] Blood UA Trace(A) Negative 01/13/2015 10:46 PM CDT [facility] Leukocyte UA Negative Negative 01/13/2015 10:46 PM CDT [facility] Nitrite UA Negative Negative 01/13/2015 10:46 PM CDT [facility] Glucose UA Negative Negative 01/13/2015 10:46 PM CDT [facility] Ketone UA 1+(A) Negative 01/13/2015 10:46 PM CDT [facility] Bilirubin UA Negative Negative 01/13/2015 10:46 PM CDT [facility] Urobilinogen UA 0.2 0.1 - 1.0 EU/dL 01/13/2015 10:46 PM CDT [facility] WBC UA Auto 2-5 0-2, 2-5 # /hpf 01/13/2015 10:46 PM CDT [facility] RBC UA Auto 10-20(A) 0-2, 2-5 # /hpf 01/13/2015 10:46 PM CDT [facility] Epithelial Cell UA Auto 0-2 0-2, 2-5 # /hpf 01/13/2015 10:46 PM CDT [facility] Bacteria UA Auto None seen None seen 01/13/2015 10:46 PM CDT [facility] Urine Microscopy Urine microscopy to follow 01/13/2015 10:46 PM T [facility] Urine URINE SPECIMEN FROM URINARY BLADDER / Unknown 01/13/2015 10:15 PM CDT 01/13/2015 10:30 PM CDT Demario Liu MD LAB - URINALYSIS O RDERABLES [facility] [id number] [place] [id number] * (ABNORMAL) URINALYSIS MICROSCOPIC ONLY (01/13/2015 10:15 PM CDT) [facility] RBC UA 5-10(A) 0-2, 2-5 # /hpf 01/13/2015 10:56 PM CDT [facility] WBC UA 0-2 0-2, 2-5 # /hpf 01/13/2015 10:56 PM CDT [facility] Bacteria UA 1+(A) None Seen 01/13/2015 10:56 PM CDT [facility] Epithelial Cell UA 0-2 0-2, 2-5 01/13/2015 10:56 PM CDT [facility] Mucus UA 1+ 01/13/2015 10:56 PM CDT [facility] Urine URINE SPECIMEN FROM URINARY BLADDER / Unknown 01/13/2015 10:15 PM CDT 01/13/2015 10:30 PM CDT Demraio Liu MD LAB - URINALYSIS O RDERABLES Performing Organization Address [facility] de Phone Number [facility] [address] [place] [id number] * TSH (01/13/2015 10:15 PM CDT) Only the most recent of3 resultswithin the time period is included. [facility] TSH 1.28 0.358 - 3.740 uIU/mL 01/13/2015 11:05 PM CDT [facility] Blood BLOOD SPECIMEN / Unknown 01/13/2015 10:15 PM CDT 01/13/2015 10:30 PM CDT Demario Liu MD LAB - CHEMISTRY OR DERABLES Performing Organization Address [facility] de Phone Number [facility] [address] [place] [phone] * (ABNORMAL) DRUG SCREEN TOX URINE PANEL (01/13/2015 10:14 PM CDT) Only the most recent of2 resultswithin the time period is included. [facility] Amphetamines Screen Urine Not Detected Not Detected 01/13/2015 10:47 PM CDT [facility] Barbiturates Screen Urine Not Detected Not Detected 01/13/2015 10:47 PM CDT [facility] Benzodiazepines Screen Urine Not Detected Not Detected 01/13/2015 10:47 PM CDT [facility] Cannabinoids Screen Urine Detected(A) Not Detected 01/13/2015 10:47 PM CDT [facility] Cocaine Screen Urine Not Detected Not Detected 01/13/2015 10:47 PM CDT [facility] Methadone Screen Urine Not Detected Not Detected 01/13/2015 10:47 PM CDT [facility] Opiate Screen Urine Not Detected Not Detected 01/13/2015 10:47 PM CDT [facility] Phencyclidine Screen Urine Not Detected Not Detected 01/13/2015 10:47 PM CDT [facility] Urine URINE / Unknown 01/13/2015 1 0:14 PM CDT 01/13/2015 10:30 PM CDT Narrative [facility] - 01/13/2015 10:47 PM CDT This drug screen is designed for MEDICAL purposes only. It is not to be used for legal purposes, including but not limited to worker's comp, police investigations, occupational issues, child custody, etc. Any positive result is only presumptive and must be confirmed with a separate confirmatory test ordered by the physician. Drug Screening Test Cutoff Values: AMPHETAMINES 1000 ng/ml BARBITURATES 200 ng/ml BENZODIAZEPINES 200 ng/ml CANNABINOIDS(THC) 50 ng/ml COCAINE 300 ng/ml METHADONE 300 ng/ml OPIATES 300 ng/ml PHENCYCLIDINE(PCP)25 ng/ml Demario Liu MD LAB - URINE CHEMIS TRY ORDERABLES [facility] [address] [place] [address] * XR CHEST 1VW PORTABLE (01/12/2015 4:31 PM CDT) Only the most recent of3 resultswithin the time period is included. Anatomical Region Laterality Modality Chest Radiographic Eve ging 01/12/2015 4:33 PM CDT Impressions 01/12/2015 4:34 PM CDT No acute cardiopulmonary disease Narrative 01/12/2015 4:34 PM CDT [facility] chest Indication: Difficulty breathing, numbness Comparison: Chest x-ray 09/28/2014 Findings: The lungs are clear. Heart size normal. No evidence of pneumothorax or pleural effusion. Procedure Note Sadie Ward MD - 01/12/2015 Portable AP chest Indication: Difficulty breathing, numbness Comparison: Chest x-ray 09/28/2014 Findings: The lungs are clear. Heart size normal. No evidence of pneumothorax or pleural effusion. IMPRESSION No acute cardiopulmonary disease Rashid Sky MD DIAGNOSTIC IMAGIN G ORDERABLES * CT HEAD NON CONTRAST (01/12/2015 3:59 PM CDT) Anatomical Region Laterality Modality Head Computed Tomogra phy 01/12/2015 4:00 PM CDT Impressions 01/12/2015 4:00 PM CDT No acute intracranial abnormalities. Narrative 01/12/2015 4:[address] scan of the brain without contrast Indication: Altered mental status, psychosis Comparison: CT brain 12/13/2007 Findings: Axial CT images of the brain were obtained without contrast. There is no evidence of acute intracranial hemorrhage or recent cortical infarction. There is no mass or midline shift. Ventricular and sulcal size is within normal limits. There are no extra-axial fluid collections. The bony calvarium is intact. The paranasal sinuses are well aerated. Procedure Note Sadie Ward MD - 01/12/2015 CT scan of the brain without contrast Indication: Altered mental status, psychosis Comparison: CT brain 12/13/2007 Findings: Axial CT images of the brain were obtained without contrast. There is no evidence of acute intracranial hemorrhage or recent cortical infarction. There is no mass or midline shift. Ventricular and sulcal size is within normal limits. There are no extra-axial fluid collections. The bony calvarium is intact. The paranasal sinuses are well aerated. IMPRESSION No acute intracranial abnormalities. Rashid Sky MD CT ORDERABLES * (ABNORMAL) DRUG SCREEN TOX LIMITED BLD PNL 3 INHOUSE (01/12/2015 3:53 PM CDT) Acetaminophen <2.0(L) 10.0 - 30.0 ug/mL 01/12/2015 4:31 PM CDT [facility] Ethanol <3 <10 mg/dL 01/12/2015 4:31 PM CDT [facility] Salicylate 3.0 <20.0 mg/dL 01/12/2015 4:31 PM CDT [facility] Ethanol Calculated <0.100 gm/dL 01/12/2015 4:31 PM CDT [facility] Comment:Not Calculated Blood BLOOD SPECIMEN / Unknown 01/12/2015 3:53 PM CDT 01/12/2015 4:02 PM CDT Narrative [facility] - 01/12/2015 4:31 PM CDT [facility] ACETAMINOPHEN COMMENT Critical values: 4 Hours Post Ingestion: Critical value > 200 g/mL 12 Hours Post Ingestion: Critical value > 50 g/mL For acute ingestion, please refer to Acetaminophen nomogram to determine the risk of toxicity based on time since ingestion and acetaminophen level (see link provided). Note the nomogram disclaimer. WARNING: Assessing the potential toxicity of an acetaminophen level on a standard risk nomogram must take into consideration many factors including any uncertainty of the time since ingestion or the possibility of other medications that may alter the peak level. Contact the [facility] at or reserved for healthcare professionals to assist you in evaluating potentially toxic acetaminophen levels. Rashid Sky MD LAB - CHEMISTRY O RDERABLES [facility] [address] [place] [address] * MAGNESIUM BLOOD (09/28/2014 6:48 PM CDT) Only the most recent of4 resultswithin the time period is included. Magnesium 1.9 1.6 - 2.6 mg/dL 09/28/2014 7:18 PM CDT [facility] Blood BLOOD SPECIMEN / Unknown 09/28/2014 6:48 PM CDT 09/28/2014 6:58 PM CDT Sarika Box MD LAB - CHEMISTRY GÉNESIS MCKEON [facility] Organization Address City/State/ZIP Co de Phone Number [facility] [address] [place] [phone] * CARDIAC PROCEDURE ORDER (07/26/2013 5:31 PM CDT) Narrative 07/26/2013 5:31 PM CDT Ordered by an unspecified provider. A scan was deleted from the Results section by S Interface [[id number]] on 07/04/2013 at 9:14 AM (File: [id number]) A scan was deleted from the Results section by S Interface [[id number]] on 07/26/2013 at 5:31 PM (File: [id number]) Transcriptions Document, Scanned - 07/26/2013 5:31 PM CDT Document, Scanned - 07/04/2013 10:58 PM CDT Scanned Document CARDIAC SERVICES ORD ERABLES * CARDIAC RHYTHM STRIP ORDER (07/01/2013 5:17 PM CDT) Only the most recent of3 resultswithin the time period is included. Narrative 07/01/2013 5:17 PM CDT Ordered by an unspecified provider. Transcriptions Document, Scanned - 07/01/2013 5:17 PM CDT Scanned Document CARDIAC SERVICES ORD ERABLES * IP CONSULT TO ELECTROPHYSIOLOGY (06/29/2013 4:27 PM CDT) Only the most recent of2 resultswithin the time period is included. Narrative Estrella Fletcher MD - 06/29/2013 4:27 PM CDT Estrella Fletcher MD 06/29/2013 4:27 PM EP Procedure Note Chase Jaquez is a 53 y.o. male EP Physician: Chance 06/29/2013 Current Facility-Administered Medications Medication Dose Route Frequency Provider Last Rate Last Dose [COMPLETED] 0.9% NaCl infusion Intravenous Once Estrella Fletcher MD 20 mL/hr at 06/29/13 1442 0.9% NaCl infusion Intravenous Continuous Estrella Fletcher MD fentaNYL (SUBLIMAZE) injection 10-50 mcg 10-50 mcg Intravenous intra-Procedure multiple Estrella Fletcher MD 50 mcg at 06/29/13 1536 midazolam (VERSED) injection 0.5-4 mg 0.5-4 mg Intravenous intra-Procedure multiple Estrella Fletcher MD 2 mg at 06/29/13 1536 vancomycin (VANCOCIN) 1,500 mg in NaCl 0.9 % IVPB 1,500 mg Intravenous Comparison Shopper Estrella Fletcher MD 1,500 mg at 06/29/13 1605 Basic Intervals: Initial (msec) Final P-wave 90 WV 140 QRS 74 QT 313 SCL 500 A-H 61 H-V 28 HIS P-A (HRA) P-A (HBE) Rhythm: SR Heart Rate: 90 Pre-excitation: absent Atrial Pacing Studies: PCL SNRT CSNRT Secondary Sinus Studies: absent IAP: 1:1 AV Conduction up to 300 msec AV Wenkebach at <300 msec Dual AVN pathways: absent SAPS PCL AERP AVNERP AVN-SP ERP AVN-FP ERP 400 <200 Programmed Ventricular Stimulation Studies: PCL Site Intervals Induced Rhythm PVS @500 @RVOT/RVA SVEST/DVEST/TVEST PVS @400 @RVOT/RVA SVEST/DVEST/TVEST PVS @ @ PVS @ @ PVS @ @ PVS @ @ PVS @ @ PVS @ @ PVS @ @ Burst @300/200 @RVOT Burst @300/200 @RVA Negative EP Study Plan: implant of loop recorder Procedure Note Estrella Fletcher MD - 06/29/2013 4:19 PM CDT EP Procedure Note Chase Jaquez is a 53 y.o. male EP Physician: Chance 06/29/2013 Current Facility-Administered Medications Medication Dose Route Frequency Provider Last Rate Last Dose [COMPLETED] 0.9% NaCl infusion Intravenous Once Estrella Fletcher MD 20 mL/hr at 06/29/13 1442 0.9% NaCl infusion Intravenous Continuous Estrella Fletcher MD fentaNYL (SUBLIMAZE) injection 10-50 mcg 10-50 mcg Intravenousintra-Procedure multiple Estrella Fletcher MD 50 mcg at 536 midazolam (VERSED) injection 0.5-4 mg 0.5-4 mg Intravenousintra-Procedure multiple Estrella Fletcher MD 2 mg at 06/29/13 1536 vancomycin (VANCOCIN) 1,500 mg in NaCl 0.9 % IVPB 1,500 mg IntravenousOn Call Estrella Fletcher MD 1,500 mg at 06/29/13 1605 Basic Intervals: Initial (msec) Final P-wave 90 WV 140 QRS 74 QT 313 SCL 500 A-H 61 H-V 28 HIS P-A (HRA) P-A (HBE) Rhythm: SR Heart Rate: 90 Pre-excitation: absent Atrial Pacing Studies: PCL SNRT CSNRT Secondary Sinus Studies: absent IAP: 1:1 AV Conduction up to 300 msec AV Wenkebach at <300 msec Dual AVN pathways: absent SAPS PCL AERP AVNERP AVN-SP ERP AVN-FP ERP 400 <200 Programmed Ventricular Stimulation Studies: PCL Site Intervals Induced Rhythm PVS @500 @RVOT/RVA SVEST/DVEST/TVEST PVS @400 @RVOT/RVA SVEST/DVEST/TVEST PVS @ @ PVS @ @ PVS @ @ PVS @ @ PVS @ @ PVS @ @ PVS @ @ Burst @300/200 @RVOT Burst @300/200 @RVA Negative EP Study Plan: implant of loop recorder Margarita Jones MD INPATIENT CONSULT OR DERABLES * IP CONSULT TO CARDIOLOGY (06/27/2013 10:18 PM CDT) Narrative Margarita Jones MD - 06/27/2013 10:18 PM CDT Margarita Jones MD 06/27/2013 10:18 PM [facility] Heart Patrick Margarita Jones MD, FACC REASON FOR VISIT: CP, PALPITATIONS, NEAR SYNCOPE PROBLEM LIST: Patient Active Problem List Diagnosis Tachy-henry syndrome Chest pain SUBJECTIVE: Chase Jaquez is a 53 y.o. male with known history of anxiety, tachy-henry syndrome, depression and anxiety who presented to ED with CP and near syncope. Pt reports intermittent CP for 10 yrs, with my tachy-henry. Pt reports that over the last few days to last week he has experienced increased and worsening (above baseline) dizziness (near syncope, but no LOC, had to hold on to something), palpitations, diaphoresis, nausea, chills, SOB and midsternal chest pressure. Pt describes the chest pressure as 6/10, worse than normal with no radiation or change in intensity with inspiration or movement. Pt has also experienced increased STEVENS and decreased activity tolerance. Pt does report he has not taken his HCTZ x3 mos after RX ran out. Pt denies any recent flu-like symptoms. Currently, resting in bed. No current c/o CP, SOB, dizziness, LOC, palpitations, N/V or diaphoresis. SR 60's-70's. SBP 110's-120's. TROPS: <0.015, BUN 14, COLLETER 0.92, K 3.6, TSH 0.947, WBC 8.5, H&H 13/39. Pt seen and examined D/w care team ROS: A 14 point comprehensive review of systems pertinent to the CV question was negative except as described in HPI. I have reviewed and agree with all of the above entries. SOCIAL HISTORY: History Social History Marital Status: Spouse Name: N/A Number of Children: N/A Years of Education: N/A Social History Main Topics Smoking status: Current Every Day Smoker -- 0.5 packs/day for 40 years Smokeless tobacco: Not on file Alcohol Use: No Drug Use: Yes Special: Marijuana Sexually Active: Not on file Other Topics Concern Special Diet No Social History Narrative No narrative on file FAMILY HISTORY: Family History Problem Relation Age of Onset Coronary Artery Disease Mother Hypercholesterolemia Mother Hypertension Mother Hypertension Father Coronary Artery Disease Brother Arrhythmia Brother MEDICAL HISTORY: Past Medical History Diagnosis Date Anxiety Tachy-henry syndrome Depression Generalized anxiety disorder I have reviewed and agree with all of the above entries. SURGICAL HISTORY: Past Surgical History Procedure Date Negative surgical history HOME MEDICATIONS: Prior to Admission medications Medication Sig Start Date End Date Taking? Authorizing Provider multivitamin daily (THERAGRAN) tablet Take 1 Tab by mouth daily with food. Yes Historical Provider, Cholecalciferol (VITAMIN D) 1000 UNITS capsule Take 2,000 Units by mouth once daily. Yes Historical Provider, aspirin 81 MG chew tablet Take 81 mg by mouth once daily. Yes Historical Provider, lovastatin (MEVACOR) 10 MG tablet Take 10 mg by mouth at bedtime. Yes Historical Provider, potassium chloride SA (K-DUR) 20 MEQ tablet Take 1 Tab by mouth once daily. 08/16/12 David Zee MD clonazePAM (KLONOPIN) 1 MG tablet Take 1 mg by mouth 2 times daily as needed. Historical Provider, hydrochlorothiazide (HYDRODIURIL) 25 MG tablet Take 25 mg by mouth once daily. Historical Provider, EXAMINATION: VITALS: Vitals: 06/26/13 2330 06/27/13 0017 06/27/13 0435 06/27/13 0801 BP: 133/69 126/85 111/72 125/80 Pulse: 81 70 82 87 Temp: 98.4 F 98.4 F 98.3 F Resp: 15 16 16 18 Weight: 186 lb 8 oz (84.596 kg) SpO2: 100% 100% 99% 100% GENERAL/CONSTITUTIONAL: NAD, A/O x 3. EARS/NOSE/MOUTH/THROAT: Neck supple. No stridor heard RESPIRATORY/CHEST: CTA bilat. No wheezing or rales CARDIOVASCULAR: NSR, no murmur, no S3/S4 GASTROINTESTINAL/ABDOMEN: soft, NT, ND GENITOURINARY: There is no flank tenderness bilaterally. EXTREMITIES: There is no edema bilaterally. No clubbing or cyanosis LYMPHATIC/HEME: No palpable neck glands noted. MUSCULOSKELETAL: No joint swelling throughout. SKIN: no active cellulitis seen VASCULAR: stable bilat pedal pulses NEUROLOGICAL: CN 2 - 12 grossly intact, non focal, no tremors PSYCHOLOGICAL: normal affect and mood noted CURRENT MEDS: MEDICATIONS FOR CURRENT ENCOUNTER: SCHEDULED MEDICATIONS: aspirin tablet 325 mg, Active, Oral, QDAY enoxaparin (LOVENOX) injection 40 mg, Active, Subcutaneous, QDAY AT 0600 hydrochlorothiazide (HYDRODIURIL) tablet 25 mg, Active, Oral, QDAY multivitamin daily (THERAGRAN) tablet 1 Tab, Active, Oral, QDAY WITH FOOD nicotine (NICODERM CQ) patch 14 mg, Active, Transdermal, QDAY nitroglycerin (NITRO-BID) ointment 1 Inch, Active, Topical, BID 0900 and 1500 pantoprazole EC (PROTONIX) tablet 40 mg, Active, Oral, QDAY potassium chloride (KLOR-CON M;K-DUR) tablet 20 mEq, Active, Oral, QDAY pravastatin (PRAVACHOL) tablet 10 mg, Active, Oral, AT BEDTIME CONTINUOUS MEDICATIONS: 0.9% NaCl infusion, Active, Intravenous, Continuous PRN MEDICATIONS: 0.9% NaCl injection 2-10 mL, Active, Intracatheter, PRN 0.9% NaCl IV Bolus, Active, Intravenous, PRN acetaminophen (TYLENOL) tablet 650 mg, Completed, Oral, Once PRN clonazePAM (KlonoPIN) tablet 1 mg, Active, Oral, BID PRN morphine injection 2 mg, Active, Intravenous, q4h PRN nitroglycerin (NITROSTAT) tablet 0.4 mg, Active, Sublingual, q5 min PRN LABS: Reviewed Component Name 06/27/1344006/26/13202908/13/12 1950 WBC 8.5 10.3 9.0 HGB 13.0 13.5 12.2 HCT 39.0 39.8 36.9 PLTCOUNT 225 223 217 Component Name 06/27/1344006/26/13233406/26/132029 TROPONIN <0.015 <0.015 <0.015 Component Name 08/13/12194907/31/11 1305 MYOGLOBIN 63 50* Component Name 06/27/1344006/26/13202908/13/12 1950 SODIUM 139 139 140 POTASSIUM 3.6 3.9 3.5 BUN 14 15 11 CREATININE 0.92 1.09 0.93 Component Name 08/15/12 0313 CHOL 224* TRIG 137 HDL 31* LDLCALC -- No results found for this basename: BNP:3 in the last 27323 hours Component Name 08/13/12194907/31/11 1305 INR 0.99 1.0 Component Name 06/27/1344008/14/12 0338 TSH 0.947 4.09* CMP: Component Name 06/27/1344006/26/132029 GLUCOSE 98 -- BUN 14 -- CREATININE 0.92 -- EGFR >60 -- SODIUM 139 -- POTASSIUM 3.6 -- CHLORIDE 106 -- CO2 26 -- CALCIUM 9.3 -- PHOSPHORUS -- -- AST -- 21 PROTEIN -- -- ALBUMIN -- 4.3 ALT -- 40 EK06/26/13 Normal sinus rhythm Normal ECG EK08/13/12 EKG Interp Final Sinus bradycardia with short WV Otherwise normal ECG IMPRESSIONS: 1. CMP 2. HTN 3. Bradycardia 4. Anxiety D/o PLAN/RECOMMENDATIONS: 1. CIE 2. ASA 3. Nitrates 4. Contd B Blockers 5. Echo 6. ARB/MARILYNN-I 7. Stress MPI 8. EP eval Risk modification addressed with patient Chase Jaquez has been advised to let me know if patient has recurrent chest pain,dyspnea,syncope or palpitations. Pcp None, thank you for allowing us to participate in the care of this patient. Closing Remark:I have reviewed and agree with all of the above entries. Procedure Note Margarita Jones MD - 06/27/2013 7:30 AM CDT [facility] Heart Patrick Margarita Jones MD, FACC REASON FOR VISIT: CP, PALPITATIONS, NEAR SYNCOPE PROBLEM LIST: Patient Active Problem List Diagnosis Tachy-henry syndrome Chest pain SUBJECTIVE: Chase Jaquez is a 53 y.o. male with known history of anxiety,tachy-henry syndrome, depression and anxiety who presented to ED with CPand near syncope. Pt reports intermittent CP for 10 yrs, with mytachy-henry. Pt reports that over the last few days to last week hehas experienced increased and worsening (above baseline) dizziness (nearsyncope, but no LOC, had to hold on to something), palpitations,diaphoresis, nausea, chills, SOB and midsternal chest pressure. Ptdescribes the chest pressure as 6/10, worse than normal with noradiation or change in intensity with inspiration or movement. Pt hasalso experienced increased STEVENS and decreased activity tolerance. Pt doesreport he has not taken his HCTZ x3 mos after RX ran out. Pt deniesany recent flu-like symptoms. Currently, resting in bed. No current c/oCP, SOB, dizziness, LOC, palpitations, N/V or diaphoresis. SR 60's-70's.SBP 110's-120's. TROPS: <0.015, BUN 14, COLLETER 0.92, K 3.6, TSH 0.947, WBC8.5, H&H 13/39. Pt seen and examined D/w care team ROS: A 14 point comprehensive review of systems pertinent to the CV questionwas negative except as described in HPI. I have reviewed and agree with all of the above entries. SOCIAL HISTORY: History Social History Marital Status: Spouse Name: N/A Number of Children: N/A Years of Education: N/A Social History Main Topics Smoking status: Current Every Day Smoker -- 0.5 packs/day for 40 years Smokeless tobacco: Not on file Alcohol Use: No Drug Use: Yes Special: Marijuana Sexually Active: Not on file Other Topics Concern Special Diet No Social History Narrative No narrative on file FAMILY HISTORY: Family History Problem Relation Age of Onset Coronary Artery Disease Mother Hypercholesterolemia Mother Hypertension Mother Hypertension Father Coronary Artery Disease Brother Arrhythmia Brother MEDICAL HISTORY: Past Medical History Diagnosis Date Anxiety Tachy-henry syndrome Depression Generalized anxiety disorder I have reviewed and agree with all of the above entries. SURGICAL HISTORY: Past Surgical History Procedure Date Negative surgical history HOME MEDICATIONS: Prior to Admission medications Medication Sig Start Date End Date Taking? Authorizing Provider multivitamin daily (THERAGRAN) tablet Take 1 Tab by mouth daily with food.Yes Historical Provider, Cholecalciferol (VITAMIN D) 1000 UNITS capsule Take 2,000 Units by mouthonce daily. Yes Historical Provider, aspirin 81 MG chew tablet Take 81 mg by mouth once daily. YesHistorical Provider, lovastatin (MEVACOR) 10 MG tablet Take 10 mg by mouth at bedtime. YesHistorical Provider, potassium chloride SA (K-DUR) 20 MEQ tablet Take 1 Tab by mouth oncedaily. 08/16/12 David Zee MD clonazePAM (KLONOPIN) 1 MG tablet Take 1 mg by mouth 2 times daily asneeded. Historical Provider, hydrochlorothiazide (HYDRODIURIL) 25 MG tablet Take 25 mg by mouth oncedaily. Historical Provider, EXAMINATION: VITALS: Vitals: 06/26/13 2330 06/27/13 0017 06/27/13 0435 06/27/13 0801 BP: 133/69 126/85 111/72 125/80 Pulse: 81 70 82 87 Temp: 98.4 F 98.4 F 98.3 F Resp: 15 16 16 18 Weight: 186 lb 8 oz (84.596 kg) SpO2: 100% 100% 99% 100% GENERAL/CONSTITUTIONAL: NAD, A/O x 3. EARS/NOSE/MOUTH/THROAT: Neck supple. No stridor heard RESPIRATORY/CHEST: CTA bilat. No wheezing or rales CARDIOVASCULAR: NSR, no murmur, no S3/S4 GASTROINTESTINAL/ABDOMEN: soft, NT, ND GENITOURINARY: There is no flank tenderness bilaterally. EXTREMITIES: There is no edema bilaterally. No clubbing or cyanosis LYMPHATIC/HEME: No palpable neck glands noted. MUSCULOSKELETAL: No joint swelling throughout. SKIN: no active cellulitis seen VASCULAR: stable bilat pedal pulses NEUROLOGICAL: CN 2 - 12 grossly intact, non focal, no tremors PSYCHOLOGICAL: normal affect and mood noted CURRENT MEDS: MEDICATIONS FOR CURRENT ENCOUNTER: SCHEDULED MEDICATIONS: aspirin tablet 325 mg, Active, Oral, QDAY enoxaparin (LOVENOX) injection 40 mg, Active, Subcutaneous, QDAY AT 0600 hydrochlorothiazide (HYDRODIURIL) tablet 25 mg, Active, Oral, QDAY multivitamin daily (THERAGRAN) tablet 1 Tab, Active, Oral, QDAY WITHFOOD nicotine (NICODERM CQ) patch 14 mg, Active, Transdermal, QDAY nitroglycerin (NITRO-BID) ointment 1 Inch, Active, Topical, BID 0900 [id number] pantoprazole EC (PROTONIX) tablet 40 mg, Active, Oral, QDAY potassium chloride (KLOR-CON M;K-DUR) tablet 20 mEq, Active, Oral, QDAY pravastatin (PRAVACHOL) tablet 10 mg, Active, Oral, AT BEDTIME CONTINUOUS MEDICATIONS: 0.9% NaCl infusion, Active, Intravenous, Continuous PRN MEDICATIONS: 0.9% NaCl injection 2-10 mL, Active, Intracatheter, PRN 0.9% NaCl IV Bolus, Active, Intravenous, PRN acetaminophen (TYLENOL) tablet 650 mg, Completed, Oral, Once PRN clonazePAM (KlonoPIN) tablet 1 mg, Active, Oral, BID PRN morphine injection 2 mg, Active, Intravenous, q4h PRN nitroglycerin (NITROSTAT) tablet 0.4 mg, Active, Sublingual, q5 minPRN LABS: Reviewed Component Name 06/27/13 0441 06/26/13 2030 08/13/12 1950 WBC 8.5 10.3 9.0 HGB 13.0 13.5 12.2 HCT 39.0 39.8 36.9 PLTCOUNT 225 223 217 Component Name 06/27/13 0441 06/26/13 2335 06/26/13 2030 TROPONIN <0.015 <0.015 <0.015 Component Name 08/13/12 1950 07/31/11 1305 MYOGLOBIN 63 50* Component Name 06/27/1344006/26/13202908/13/121949 SODIUM 139 139 140 POTASSIUM 3.6 3.9 3.5 BUN 14 15 11 CREATININE 0.92 1.09 0.93 Component Name 08/15/12 0313 CHOL 224* TRIG 137 HDL 31* LDLCALC -- No results found for this basename: BNP:3 in the last 11439 hours Component Name 08/13/12194907/31/11 1305 INR 0.99 1.0 Component Name 06/27/1344008/14/12 0338 TSH 0.947 4.09* CMP: Component Name 06/27/1344006/26/132029 GLUCOSE 98 -- BUN 14 -- CREATININE 0.92 -- EGFR >60 -- SODIUM 139 -- POTASSIUM 3.6 -- CHLORIDE 106 -- CO2 26 -- CALCIUM 9.3 -- PHOSPHORUS -- -- AST -- 21 PROTEIN -- -- ALBUMIN -- 4.3 ALT -- 40 EK06/26/13 Normal sinus rhythm Normal ECG EK08/13/12 EKG Interp Final Sinus bradycardia with short WV Otherwise normal ECG IMPRESSIONS: 1. CMP 2. HTN 3. Bradycardia 4. Anxiety D/o PLAN/RECOMMENDATIONS: 1. CIE 2. ASA 3. Nitrates 4. Contd B Blockers 5. Echo 6. ARB/MARILYNN-I 7. Stress MPI 8. EP eval Risk modification addressed with patient Chase Jaquez has been advised to let me know if patient has recurrentchest pain,dyspnea,syncope or palpitations. Pcp None, thank you for allowing us to participate in the care of thispatient. Closing Remark:I have reviewed and agree with all of the above entries. Danya Jesus PA-C INPATIENT CONSULT OR DERABLES * NM MYOCARD PERFUSION SPECT STRESS AND REST (06/27/2013 3:00 PM CDT) Only the most recent of2 resultswithin the time period is included. Anatomical Region Laterality Modality Chest Nuclear Medicine 06/27/2013 3:03 PM CDT Impressions 06/27/2013 3:05 PM CDT 1. No evidence of pharmacologically induced reversible defect to suggest ischemia. 2. Global hypokinesis with a composite left ventricular ejection fraction of 33 %. Narrative 06/27/2013 3:05 PM CDT MYOCARDIAL SPECT MULTI MYOCARDIAL PERFUSION WITH EJECTION FRACTION MYOCARDIAL PERFUSION WITH WALL MOTION INDICATION: Chest pain RADIOPHARMACEUTICAL: 10.0 mCi of Tc99m Tetrofosmin at rest and 30.0mCi Tc99m Tetrofosmin at stress. 0.4 mg of Lexiscan given intravenously. TECHNIQUE: After the resting SPECT images were made, the patient was given the Lexiscan dose and the stress dose of tracer was given, and the patient was reimaged, using SPECT technique. FINDINGS: Stress and rest images show homogeneous uptake of radiotracer throughout the left ventricle. No fixed or reversible perfusion defects are seen. WALL MOTION ANALYSIS: 3-D reconstruction of the gated data shows the left ventricular ejection fraction to measure 33 %. Global hypokinesis is present. On August 16, 2012 left ventricular ejection fraction measured 28%. Procedure Note Melvin Tiwari MD - 06/27/2013 MYOCARDIAL SPECT MULTI MYOCARDIAL PERFUSION WITH EJECTION FRACTION MYOCARDIAL PERFUSION WITH WALL MOTION INDICATION: Chest pain RADIOPHARMACEUTICAL: 10.0 mCi of Tc99m Tetrofosmin at rest and 30.0mCi Tc99m Tetrofosmin at stress. 0.4 mg of Lexiscan given intravenously. TECHNIQUE: After the resting SPECT images were made, the patient was given the Lexiscan dose and the stress dose of tracer was given, and the patient was reimaged, using SPECT technique. FINDINGS: Stress and rest images show homogeneous uptake of radiotracer throughout the left ventricle. No fixed or reversible perfusion defects are seen. WALL MOTION ANALYSIS: 3-D reconstruction of the gated data shows the left ventricular ejection fraction to measure 33 %. Global hypokinesis is present. On August 16, 2012 left ventricular ejection fraction measured 28%. IMPRESSION 1. No evidence of pharmacologically induced reversible defect to suggest ischemia. 2. Global hypokinesis with a composite left ventricular ejection fraction of 33 %. Margarita Jones MD NM ORDERABLES * ECHOCARDIOGRAM 2D WITH DOPPLER (06/27/2013 12:18 PM CDT) Only the most recent of2 resultswithin the time period is included. 06/27/2013 12:1 8 PM CDT Narrative [facility] - 06/28/2013 12:52 PM CDT ECHOCARDIOGRAPHY REPORT Transthoracic Echocardiogram 2D, M-mode, Doppler, and Color Doppler Date of Service: 06/27/2013 Patient: CHASE JAQUEZ : 1960 Age: 53 years Gender: Male Race: Black Height: Weight: BSA: Allergies: NKA Diagnoses: 786.50 - CHEST PAIN NOS Reading Physician: Margarita Jones MD Referring Physician: Margarita Jones MD VEHICLE DISMANTLER: SOHAIL [facility]: [facility] Summary: - Left ventricle: - Systolic function was moderately reduced. Ejection fraction was estimated to be 40 %. - There was moderate diffuse hypokinesis. - Doppler parameters were consistent with abnormal left ventricular relaxation (grade 1 diastolic dysfunction). - Mitral valve: - There was mild regurgitation. - Tricuspid valve: - There was mild regurgitation. Indications: Evaluate chest pain. History: Symptoms: chest pain. Dyspnea. Prior history: Risk factors: a history of current cigarette use (within the last month). Procedure: [place] [facility] [place]. The transthoracic approach was used. The study included complete 2D imaging, M-mode, complete spectral Doppler, and color Doppler. Left ventricle: Size was normal. Systolic function was moderately reduced. Ejection fraction was estimated to be 40 %. There was moderate diffuse hypokinesis. Doppler: Doppler parameters were consistent with abnormal left ventricular relaxation (grade 1 diastolic dysfunction). Aortic valve: demonstrated normal excursion. Mitral valve: There was normal leaflet separation. Doppler: There was mild regurgitation. Left atrium: Size was normal. Right atrium: Size was normal. Right ventricle: The size was normal. Tricuspid valve: There was normal leaflet separation. Doppler: There was mild regurgitation. Pericardium: There was no pericardial effusion. The pericardium was normal in appearance. System measurement tables CW PV Vmax: 0.7 m/s AV Vmax: 1 m/s AV maxP.1 mmHg PV maxP.1 mmHg TR Vmax: 2.3 m/s TR maxP.6 mmHg MM LA Diam: 3 cm AV Cusp: 2.1 cm Ao Diam: 3.2 cm IVSd: 1.5 cm IVSs: 1.5 cm LVIDd: 5 cm LVIDs: 4 cm LVPWd: 1.1 cm PW LVOT Vmax: 0.9 m/s E/e' Lateral Ratio: 5.2 E/e' Septal Ratio: 8.1 MV A Junito: 0.7 m/s MV Dec Sumner: 2.9 m/s2 MV E Junito: 0.6 m/s MV E/A Ratio: 0.8 Prepared and signed by Margarita Jones MD Signed 06/28/2013 12:51:50 Procedure Note 06/28/2013 ECHOCARDIOGRAPHY REPORT Transthoracic Echocardiogram 2D, M-mode, Doppler, and Color Doppler Date of Service: 06/27/2013 Patient: CHASE JAQUEZ : 1960 Age: 53 years Gender: Male Race: Black Height: Weight: BSA: Allergies: NKA Diagnoses: 786.50 - CHEST PAIN NOS Reading Physician: Margarita Jones MD Referring Physician: Margarita Jones MD VEHICLE DISMANTLER: Leanne Freeman [facility] Cardiology Group: [facility] Summary: - Left ventricle: - Systolic function was moderately reduced. Ejection fraction was estimated to be 40 %. - There was moderate diffuse hypokinesis. - Doppler parameters were consistent with abnormal left ventricular relaxation (grade 1 diastolic dysfunction). - Mitral valve: - There was mild regurgitation. - Tricuspid valve: - There was mild regurgitation. Indications: Evaluate chest pain. History: Symptoms: chest pain. Dyspnea. Prior history: Risk factors: a history of current cigarette use (within the last month). Procedure: [place] [facility] [place] a [place] study. The transthoracic approach was used. The study included complete 2D imaging, M-mode, complete spectral Doppler, and color Doppler. Left ventricle: Size was normal. Systolic function was moderately reduced. Ejection fraction was estimated to be 40 %. There was moderate diffuse hypokinesis. Doppler: Doppler parameters were consistent with abnormal left ventricular relaxation (grade 1 diastolic dysfunction). Aortic valve: demonstrated normal excursion. Mitral valve: There was normal leaflet separation. Doppler: There was mild regurgitation. Left atrium: Size was normal. Right atrium: Size was normal. Right ventricle: The size was normal. Tricuspid valve: There was normal leaflet separation. Doppler: There was mild regurgitation. Pericardium: There was no pericardial effusion. The pericardium was normal in appearance. System measurement tables CW PV Vmax: 0.7 m/s AV Vmax: 1 m/s AV maxP.1 mmHg PV maxP.1 mmHg TR Vmax: 2.3 m/s TR maxP.6 mmHg MM LA Diam: 3 cm AV Cusp: 2.1 cm Ao Diam: 3.2 cm IVSd: 1.5 cm IVSs: 1.5 cm LVIDd: 5 cm LVIDs: 4 cm LVPWd: 1.1 cm PW LVOT Vmax: 0.9 m/s E/e' Lateral Ratio: 5.2 E/e' Septal Ratio: 8.1 MV A Junito: 0.7 m/s MV Dec Sumner: 2.9 m/s2 MV E Junito: 0.6 m/s MV E/A Ratio: 0.8 Prepared and signed by Margarita Jones MD Signed 06/28/2013 12:51:50 Margarita Jones MD ECHO ORDERABLES [facility] * STRESS TEST LEXISCAN (NUCLEAR) (06/27/2013 12:00 PM CDT) 06/27/2013 12:0 0 PM CDT Narrative Transcriptions Margarita Jones MD - 06/28/2013 11:21 AM CDT [facility] CHEMICAL STRESS TEST PATIENT: CHASE JAQUEZ MR#: [id number] DATE OF SERVICE: 06/27/2013 CSN: [id number] : 1960 ROOM: [place] [address] REFERRING PHYSICIAN: CONSTANCE AMIN ADMIT DATE: 06/26/2013 INDICATIONS: RESTING EKG: Normal sinus rhythm. Nonspecific ST-T wave abnormality. INTERPRETATION: Patient underwent a stress test using 0.4 mg ofLexiscan. CONCLUSION: 1. No chest pain reported. 2. Nondiagnostic electrocardiogram response. 3. No significant arrhythmia noted. 4. Myocardial perfusion scan pending. MARGARITA JONES MD ASN/MODL #: [id number] CHEMICAL STRESS TEST - DP Margarita Jones MD CARDIAC SERVICES ORD ERABLES [facility] * BASIC METABOLIC PANEL (CALCIUM TOTAL) (06/27/2013 4:41 AM CDT) [facility] Glucose 98 74 - 106 mg/dL 06/27/2013 5:28 AM CDT [facility] Sodium 139 136 - 145 mmol/L 06/27/2013 5:28 AM CDT [facility] Potassium 3.6 3.5 - 5.1 mmol/L 06/27/2013 5:28 AM CDT [facility] Chloride 106 98 - 107 mmol/L 06/27/2013 5:28 AM CDT [facility] CO2 26 22 - 31 mmol/L 06/27/2013 5:28 AM CDT [facility] Calcium 9.3 8.5 - 10.1 mg/dL 06/27/2013 5:28 AM CDT [facility] Anion Gap 7 5 - 15 mmol/L 06/27/2013 5:28 AM CDT [facility] BUN 14 7 - 21 mg/dL 06/27/2013 5:28 AM CDT [facility] Creatinine 0.92 0.50 - 1.30 mg/dL 06/27/2013 5:28 AM CDT [facility] eGFR by MDRD >60 >60 mL/min/1.7 3m2 06/27/2013 5:28 AM CDT [facility] eGFR by MDRD >60 >60 mL/min/1.7 3m2 06/27/2013 5:28 AM CDT [facility] Blood BLOOD SPECIMEN / Unknown 06/27/2013 4:41 AM CDT 06/27/2013 4:57 AM CDT Constance Amin MD LAB - CHEMISTRY GÉNESIS MCKEON [facility] [address] [place] [address] * (ABNORMAL) LIPID PROFILE (06/27/2013 4:41 AM CDT) Only the most recent of2 resultswithin the time period is included. Cholesterol 171 <200 mg/dL 06/27/2013 8:36 AM CDT [facility] Triglycerides 122 <150 mg/dL 06/27/2013 8:36 AM CDT [facility] HDL Cholesterol 30(L) >40 mg/dL 4 8:36 AM CDT [facility] LDL Calculated 117 <130 mg/dL 06/27/2013 8:36 AM CDT [facility] VLDL Calculated 24 <=30 mg/dL 4 8:36 AM CDT [facility] Chol HDL Ratio 5.7(H) <4.5 06/27/2013 8:36 AM CDT [facility] Blood BLOOD SPECIMEN / Unknown 06/27/2013 4:41 AM CDT 06/27/2013 4:57 AM CDT Margarita Jones MD LAB - CHEMISTRY GÉNESIS MCKEON Performing Organization Address [facility] Co de Phone Number [facility] [address] [place] [address] * STRESS TEST NUCLEAR (08/16/2012 12:00 PM CDT) 08/16/2012 12:0 0 PM CDT Narrative Transcriptions Margarita Jones MD - 08/16/2012 12:14 PM CDT [facility] STRESS TEST PATIENT: CHASE JAQUEZ MR#: [id number] DATE OF SERVICE: 08/16/2012 CSN: [id number] : 1960 ROOM: [place] [address] REFERRING PHYSICIAN: Constance Hernandez DO ADMIT DATE: 08/13/2012 Stress Test Rest Rest Heart Rate 109 -CW Rest Blood Pressure 132/88 mmHg -CW Stage 1 Stress Test Stage 1 Heart Rate 176 -CW Post Stress Test Stage Post Heart Rate 176 -CW Post Blood Pressure 147/94 mmHg -CW 2 Minute Post Stress Test 2 Minute Heart Rate 134 -CW 2 Minute Blood Pressure 125/93 mmHg -CW 3 Minute Post Stress Test Post 3 Minute Heart Rate 113 -CW 3 Minute Post Blood Pressure 143/90 mmHg -CW 4 Minute Post Stress Test Post 4 Minute Heart Rate 98 -CW 4 Minute Post Blood Pressure 117/87 mmHg -CW Predicted/Achieved Vital Signs 100% Predicted Heart Rate 166 -CW 85% Max Predicted Heart Rate 141 -CW Max Heart Rate Achieved 176 -CW Procedure Data Duration of Exercise 2.00 min -CW Second Injection Time 1118 -CW RESTING EKG: Normal sinus rhythm. INTERPRETATION: The patient exercised for a total of 2 minutes on Jono protocol, achieving a peak heart rate of 176 beats per minute. CONCLUSION: 1. No chest pain reported. 2. Nondiagnostic EKG. 3. No significant arrhythmia noted. 4. Myocardial perfusion scan pending. MARGARITA JONES MD ASN/MODL #: [id number] Margarita Jones MD CARDIAC SERVICES ORD ERABLES [facility] * HEMOGLOBIN A1C (08/15/2012 3:14 AM CDT) [facility] Hemoglobin A1c 5.7 4.2 - 6.3 % 08/15/2012 4:51 AM CDT [facility] Estimated Average Glucose 117 mg/dL 08/15/2012 4:51 AM CDT [facility] Whole blood specimen (specimen) BLOOD SPECIMEN WITH EDTA / Unknown 08/15/2012 3:14 AM CDT 08/15/2012 4:19 AM CDT David Zee MD LAB - CHEMISTRY ORDFrancesca MCKEON [facility] [address] [place] [address] * D-DIMER (08/14/2012 1:38 PM CDT) [facility] D-Dimer <0.19 0 - 0.5 mg/L FEU 08/14/2012 2:26 PM CDT [facility] Blood specimen (specimen) BLOOD SPECIMEN / Unknown 08/14/2012 1:38 PM CDT 08/14/2012 1:47 PM CDT Narrative [facility] - 08/14/2012 2:26 PM CDT The innovance D-dimer assay now in use at [facility], [facility] and [facility] is intended for use as an aid in diagnosis of venous thromboembolism [(VTE): deep vein thrombosis (DVT), pulmonary embolism (PE), and disseminated intravascular coagulation (DIC)], and has received FDA approval to exclude VTE in patients with low or moderate pretest probability of PE or DVT (per Wells' rules). At a clinical cut-off value 0.50 mg/L FEU, the Negative Predictive Value of this assay is 99.8% for excluding PE and 100% for excluding DVT. A very low percentage of patients with VTE may yield D-dimer results below cut- off value. An elevated D-dimer result has low specificity (40.4% for PE, 35.5% for DVT) and is a poor predictor of VTE. An elevated D-dimer result may indicate DIC in the appropriate clinical setting. Results of this test should always be interpreted in conjunction with the patient's medical history, clinical presentation, and other findings. David Zee MD LAB - COAGULATION OR DERABLES Performing Organization Address [facility] Co de Phone Number [facility] [address] [place] [address] * T4 FREE (08/14/2012 11:57 AM CDT) [facility] T4 Free 0.93 0.65 - 1.34 ng/dL 08/14/2012 1:40 PM CDT [facility] Blood specimen (specimen) BLOOD SPECIMEN / Unknown 08/14/2012 11:57 AM CDT 08/14/2012 1:21 PM CDT David Zee MD LAB - CHEMISTRY GÉNESIS MCKEON Performing Organization Address [facility] Co de Phone Number [facility] [address] [place] [address] * MYOGLOBIN BLOOD (08/13/2012 7:50 PM CDT) Only the most recent of2 resultswithin the time period is included. Myoglobin 63 <100 08/13/2012 8:17 PM CDT [facility] Blood specimen (specimen) BLOOD SPECIMEN / Unknown 08/13/2012 7:50 PM CDT 08/13/2012 7:55 PM CDT Constance Russellrentino DO LAB - CHEMISTRY OR DERABLES Performing Organization Address City/[facility]/ZIP Co de Phone Number [facility] [address] [place] [address] * PTT (08/13/2012 7:50 PM CDT) Only the most recent of2 resultswithin the time period is included. Pathologist [facility] PTT 29.6 24.0 - 32.0 sec 08/13/2012 8:15 PM CDT [facility] Blood specimen (specimen) BLOOD SPECIMEN / Unknown 08/13/2012 7:50 PM CDT 08/13/2012 7:55 PM CDT Constance Hernandez DO LAB - COAGULATION ORDERABLES Performing Organization Address City/[facility] Co de Phone Number [facility] [address] [place] [address] * PT-INR (08/13/2012 7:50 PM CDT) Only the most recent of2 resultswithin the time period is included. Pathologist [facility] PT 10.4 9.4 - 11.2 sec 08/13/2012 8:15 PM CDT [facility] INR 0.99 0.9 - 1.1 08/13/2012 8:15 PM CDT [facility] Blood specimen (specimen) BLOOD SPECIMEN / Unknown 08/13/2012 7:50 PM CDT 08/13/2012 7:55 PM CDT Narrative [facility] - 08/13/2012 8:15 PM CDT Conventional Anticoagulant Therapy INR Reference Ranges: 2.0-3.0 Intensive Anticoagulant Therapy INR Reference Ranges: 2.5-3.5 Constance Hernandez DO LAB - COAGULATION ORDERABLES [facility] [address] [place] [address] Care Teams Fishery Division Chief Relationship Specialty Start Date End Date Yamilka Mejía RN Grinding Room Supervisor 06/27/13 Jessica Beltran RN Grinding Room Supervisor 06/30/13
--- OUTSIDE RECORDS SUMMARY | 2024-06-24 14:27 | XMS_ITS | Clinical Summary ---
Author Organization [facility] Address [address] [place] [address] Care Team Providers Care Fire Tender Name Role Phone Kym Yamilka Karla RN Unavailable [phone] Jessica Beltran RN Unavailable [phone] Source Comments [facility],non-owned Affiliates and Associated Physician Practices is amultiple site organization consisting of ambulatory clinics and hospital sitesin [place], [place], [place] and [place]. This disclosure is being madepursuant to the Care Everywhere program and may not contain all information available regarding this patient. 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 Family History Medical History Relation Name Comments Arrhythmia Brother CAD (Coronary Artery Disease) Brother Hypertension Father CAD (Coronary Artery Disease) Mother Hypercholesterolemia Mother Hypertension Mother Relation Name Status Comments Brother Father Mother Social History Tobacco Use Types Packs/Day Years [...] Mass Index 25.75 11/04/2015 10:57 PM CDT Plan of Treatment Health Maintenance Due Date Last Done Comments COLOGUARD (AGES 45-75) - COL ON CA SCREENING 1960 COLON MONITORING 1960 COLONOSCOPY - COLON CA SCREENING 1960 CT COLONOGRAPHY - COLON CA SCREENING 1960 Colorectal Cancer Screening 1960 FIT - COLON CA SCREENING 1960 FLEX SIG - COLON CA SCREENING 1960 HEPATITIS C SCREENING 02/14/1976 DTAP/TDAP/TD VACCINES (1 - Tdap) 1977 PNEUMOCOCCAL VACCINE 50+ (1 of 2 - PCV) 1977 ZOSTER VACCINE (1 of 2) 02/19/2008 AAA SCREENING 2023 COVID-19 VACCINE (1 - 2023-2 5 season) 2023 INFLUENZA VACCINE (#1) 2023 DEPRESSION SCREENING 04/20/2024 Respiratory Syncytial Virus (RSV) Vaccine Pt: or over 60 yrs (1 - 1-dose 75+ series) 2033 HEPATITIS B VACCINE Aged Out No longe r eligible based on patient's age to complete this topic HIB VACCINE Aged Out No longer eligi ble based on patient's age to complete this topic HPV VACCINE Aged Out No longer eligi ble based on patient's age to complete this topic MENINGOCOCCAL (Group B) VACCINE Aged Out No longer eligible based on patient's age to complete this topic MENINGOCOCCAL VACCINE Aged Out No wally gabi eligible based on patient's age to complete this topic Advance Directives * Full Code (Latest Code [...] 10:18 PM 08/16/2012 9:21 PM Care Teams Fire Tender Relationship Specialty Start Date End Date Yamilka Mejía RN Sheriff Officer 06/27/13 Jessica Beltran RN Sheriff Officer 06/30/13
[2024-06-24 14:49] VITALS: BP 159/108; PULSE 86; RESP 24; TEMP 36.2; O2SAT 100; BMI 26.7
[2024-06-24 15:36] LABS: PCR FLU A Negative PCR FLU A (Negative); PCR FLU B Negative PCR FLU B (Negative); PCR RSV POSITIVE PCR RSV (Negative); SARS PCR* Negative SARS-CoV-2 (Negative)
--- NOTE | 2024-06-24 17:21 | ED.GENADULT ---
HPI - General Adult General Date Seen: 06/24/24 Chief complaint: Ear/Nose/Throat Problem Stated complaint: Dizziness, congestion Time Seen by Provider: 06/24/24 17:20 History of Present Illness HPI narrative: 64-year-old male with a history of depression, PTSD, tachy-henry syndrome, tobacco use, bronchitis. Per medical record was seen in clinic by Dr. Arauz on 06/01. Per that visit he had a rash in his right axilla, apparently consistent with eczema. He presents here to the ER today with concern for nasal congestion, sore throat, cough. He has had symptoms ongoing for at least 2 or 3 weeks. Along with this he has also had some occasional dizzy spells. He is primarily here today because he just has lot of nasal congestion which plugs up his nose and drains down the back of his throat. It is hard for him to breathe because his nose is plugged up and hard for him to sleep at night because he is having such postnasal drip that he just can not stop coughing and breathing comfortably while he is sleeping. He has a history of tobacco use and has been counseled by his PCP to quit smoking. He does not have any previous history of COPD or asthma. He has never used inhalers before. His cough is sometimes clear and sometimes productive of ?junky? sputum which the patient thinks is draining from his nose. He has not had a fever. No chest pain. No vomiting. He says he just isn't getting better. He has been trying to treat his nasal congestion and cough with [id number] medications including Sudafed and Benadryl. They are just not helping so he came here to the ER. He has also noted that he has had pain in both of years but more on the left ear than the right. He has been using some ear drops which are not really helping. He does not have any history of diabetes or immunosuppression Related Data Home Medications ?Medication ?Instructions ?Recorded ?Confirmed aspirin 81 mg tablet,delayed 81 mg PO QDAY 04/16/23 12/17/23 release escitalopram oxalate 10 mg tablet 5 mg PO QDAY 12/17/23 12/17/23 Previous Rx's ?Medication ?Instructions ?Recorded zolpidem 10 mg tablet (Ambien) 10 mg PO QHS PRN insomnia #20 tabs 05/26/23 triamcinolone acetonide 0.5 % 1 applic topical QDAY PRN rash #15 06/01/23 topical cream grams clonazepam 0.5 mg tablet 0.5 mg PO BID PRN panic attacks 06/10/24 #30 tabs meclizine 25 mg tablet 25 mg PO QID PRN dizziness #20 tabs 06/21/24 Allergies Allergy/AdvReac Type Severity Reaction Status Date / Time No Known Drug Allergies Allergy Verified 12/17/23 12:27 [facility], [facility] Medical History Rash ?R21 - Rash and other nonspecific skin eruption (ICD-10) Insomnia ?G47.00 - Insomnia, unspecified (ICD-10) 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 (ICD-10) PTSD (post-traumatic stress disorder) ?F43.10 - Post-traumatic stress disorder, unspecified (ICD-10) Panic attack ?F41.0 - Panic disorder [episodic paroxysmal anxiety] (ICD-10) Hyperlipidemia ?E78.5 - Hyperlipidemia, unspecified (ICD-10) Hypertension ?I10 - Essential (primary) hypertension (ICD-10) Surgical History No significant past surgical history Social History Smoking Status: Current every day smoker What tobacco products do you use: cigarettes Do you use any of these nicotine containing products: None Second hand tobacco smoke exposure: Yes How often do you have a drink containing alcohol: never How often do you have six or more drinks on one occasion: Never AUDIT-C Alcohol total score: 0 Non-prescribed substance use: marijuana (any form) Exam Narrative: Exam Narrative: Constitutional: Appears well-developed and well-nourished. Alert. Conversant. Non toxic. HENT: Head: Atraumatic. Nose: Externally normal. No signs of trauma. Bilaterally has clear rhinorrhea and fairly significant mucosal edema. No epistaxis. He does have signs of postnasal drip on his oropharyngeal exam Mouth/Throat: Oral mucosa is clear and moist. no trismus. Pharynx with signs of postnasal drip. Tonsils symmetric. No tonsillar enlargement, erythema, or exudate. Eyes: Conjunctivae normal. EOM normal. Pupils equal, round, and reactive to light. No scleral icterus. Neck: Normal range of motion. Neck supple. No tracheal deviation present. Cardiovascular: Normal rate, regular rhythm. No gallop. No friction rub. No murmur heard. Symmetric radial artery pulses Pulmonary/Chest: Effort normal. No stridor. No respiratory distress. No wheezes. No rales. No rhonchi . No tenderness. Musculoskeletal: RUE: Normal range of motion. No tenderness. No deformity LUE: Normal range of motion. No tenderness. No deformity RLE: Normal range of motion. No edema. No tenderness. No deformity LLE: Normal range of motion. No edema. No tenderness. No deformity Lymph: No cervical adenopathy. Neurological: Alert and oriented to person, place, and time. Normal strength. CN II-VII intact. No sensory deficit. GCS eye subscore is 4. GCS verbal subscore is 5. GCS motor subscore is 6. Normal coordination Skin: Skin is warm and dry. No rash noted. No pallor. Normal capillary refill. Psychiatric: Normal mood. Normal affect. He polite. Const: Vital Signs, click to edit/add: Vital Signs - 24 hr 06/24/24 14:49 Temperature 97.1 F L Pulse Rate [Pulse Oximeter] 86 Respiratory Rate 24 Blood Pressure [Ri t Upper Arm] 159/108 H Pulse Oximetry 100 Oxygen Delivery Me thod Room Air Course Vital Signs Vital signs: Initial Vital Signs Temperature 97.1 F L 06/24/24 14:49 Temperature Source Temporal Artery Scan 06/24/24 14:49 Pulse Rate 86 06/24/24 14:49 Respiratory Rate 24 06/24/24 14:49 Blood Pressure 159/108 H 06/24/24 14:49 Blood Pressure Mean 125 H 06/24/24 14:49 Blood Pressure Position Sitting 06/24/24 14:49 Pulse Oximetry 100 06/24/24 14:49 Oxygen Delivery Method Room Air 06/24/24 14:49 Vital Signs Temperature 97.1 F L 06/24/24 14:49 Pulse Rate 86 06/24/24 14:49 Respiratory Rate 24 06/24/24 14:49 Blood Pressure 159/108 H 06/24/24 14:49 Pulse Oximetry 100 06/24/24 14:49 Oxygen Delivery Method Room Air 06/24/24 14:49 Temperature 97.1 F L 06/24/24 14:49 Pulse Rate 86 06/24/24 14:49 Respiratory Rate 24 06/24/24 14:49 Blood Pressure 159/108 H 06/24/24 14:49 Pulse Oximetry 100 06/24/24 14:49 Oxygen Delivery Method Room Air 06/24/24 14:49 Medications Administered Medications: Discontinued Medications Generic Name Dose Route Start Last Admin Trade Name Freq PRN Reason Stop Dose Admin Oxymetazoline HCl 1 spray 06/24/24 17:37 06/24/24 18:13 Oxymetazoline 0.05% Nasal [place] NOSTRIL-B 1 spray BID PRN Administration Medical Decision Making [facility] Narrative Medical decision making narrative: This patient presents for evaluation of 2-3 week history of cough, nasal congestion, sore throat. He is having difficulty breathing does his nose is so congested. This is consistent with an upper respiratory tract infection. Viral testing for positive for RSV. Negative for influenza and COVID. He does have notable nasal congestion on exam. Will treat with Afrin for supportive care. In addition to his nasal symptoms he has also been having ear pain. No evidence for otitis media or externa on his ear exam he does have a little bit of nonpurulent fluid behind each ear drum but no redness. No bulging.. There is no signs at this point of serious bacterial infection such as OM, RPA, epiglottitis, HAND FLATWORK FINISHER, strep pharyngitis, pneumonia, sinusitis, meningitis, bacteremia, serious bacterial infection. Given clear lungs, fever curve, no hypoxia and no respiratory distress I do not feel a CXR is indicated at this point as the probability of bacterial pneumonia is very unlikely. Given the duration of his cough and his ongoing tobacco use we will cover him with an antibiotic for potential bacterial infection triggered by his respiratory virus. Is doxycycline, Instymeds There are no significant gastrointestinal symptoms at this point and no signs of dehydration. Close followup with primary care physician is indicated. Return to ED for fever > 103, protracted vomiting, confusion, or other worsening. Lab Data Labs: Lab Results 06/24/24 Range/Units 14:47 SARS-CoV-2 (PCR) Negative SARS-CoV-2 (Negative) Influenza Type A (PCR) Negative PCR FLU A (Negative) Influenza Type B (PCR) Negative PCR FLU B (Negative) RSV (PCR) POSITIVE PCR RSV A (Negative) Discharge Plan Discharge Clinical Impression: RSV bronchitis Patient Disposition: Home, Self-Care Condition: Stable Instructions: Acute Bronchitis (ED), RSV (Respiratory Syncytial Virus) Infection (ED) Additional Instructions: As we discussed, please use the nasal decongestion spray-1 spray into each nostril 2 times daily for the next 2-3 days. It is important to stop using the medication after 2-3 days to avoid a problem with rebound nasal congestion Your nasal swab is positive for RSV. This virus can cause all of your symptoms including nasal congestion, cough sore throat, and typically lasts a few weeks. It will get better on its own. However with her history of tobacco use and the persistence of your cough we are going to treat with a course of antibiotics in case there is also a bacterial infection. Take the antibiotics twice daily for 1 week. If you have worsening symptoms such as worsening cough, trouble breathing, high fever, or any other problems please come back to the ER right away if you are not improving within the next 3-5 days, please check with your regular doctor. Prescriptions: No Action aspirin 81 mg tablet,delayed release (DR/EC) 81 mg PO QDAY zolpidem [Ambien] 10 mg tablet 10 mg PO QHS PRN (Reason: insomnia) Qty: 20 0RF triamcinolone acetonide 0.5 % cream 1 applic topical QDAY PRN (Reason: rash) Qty: 15 3RF escitalopram oxalate 10 mg tablet 5 mg PO QDAY clonazepam 0.5 mg tablet 0.5 mg PO BID PRN (Reason: panic attacks) Qty: 30 0RF meclizine 25 mg tablet 25 mg PO QID PRN (Reason: dizziness) Qty: 20 0RF Follow Up/Referrals: Jean-Palu Arauz MD [Primary Care Provider] - Stand Alone Forms: [place] Info Instructions
--- OUTSIDE RECORDS SUMMARY | 2024-06-24 18:09 | XMS_ITS | Referral Summary ---
Author Organization [facility] Address [address] [place] [address] Care Team Providers Care Nike Athlete Name Role Phone Yamilka Mejía RN Unavailable [phone] Jessica Beltran RN Unavailable [phone] Source Comments [facility],non-owned Affiliates and Associated Physician Practices is amultiple site organization consisting of ambulatory clinics and hospital sitesin [place], [place], [place] and [place]. This disclosure is being madepursuant to the Care Everywhere program and may not contain all information available regarding this patient. Last updated 18.[facility] Allergies No known active allergies Medications [...] 10:18 PM 08/16/2012 9:21 PM Care Teams Nike Athlete Relationship Specialty Start Date End Date Yamilka Mejía RN Market Director 06/27/13 Jessica Beltran RN Market Director 06/30/13
--- OUTSIDE RECORDS SUMMARY | 2024-06-24 18:10 | XMS_ITS | Clinical Summary ---
Author Organization [facility] Address [address] [place] [address] Care Team Providers Care Hearing Aid Dispenser Name Role Phone Kym Yamilka Karla RN Unavailable [phone] Jessica Beltran RN Unavailable [phone] Source Comments [facility],non-owned Affiliates and Associated Physician Practices is amultiple site organization consisting of ambulatory clinics and hospital sitesin [place], [place], [place] and [place]. This disclosure is being madepursuant to the Care Everywhere program and may not contain all information available regarding this patient. Last updated 18.[facility] Allergies No known active allergies Medications * [...] 10:18 PM 08/16/2012 9:21 PM Care Teams Hearing Aid Dispenser Relationship Specialty Start Date End Date Yamilka Mejía RN Box Truck Driver 06/27/13 Jessica Beltran RN Box Truck Driver 06/30/13
--- OUTSIDE RECORDS SUMMARY | 2024-06-24 18:10 | XMS_ITS | Clinical Summary ---
Author Organization [facility] Address [address] [place] [id number] Care Team Providers Care Highway Administrative Engineer Name Role Phone Pcp, No Primary Care Provider Unavailabl e Allergies No known active allergies Medications hydroCHLOROthiazi de (HCTZ) 25 mg tabletIndications :Essential hypertension Take 1 tablet by mouth once daily. 90 tablet 1 7 Active aspirin (ECOTRIN) 81 mg enteric coated tablet Take 1 tablet by mouth once daily with a meal. 0 7 Active FLUoxetine (PROZAC) 10 mg capsuleIndication s:Anxiety associated with depression Take 1 capsule by mouth every morning. 90 capsule 2 7 Active lovastatin (MEVACOR) 20 mg tabletIndications :Hyperlipidemia, unspecified TAKE 1 TABLET BY MOUTH AT BEDTIME 90 tablet 8 Active clonazePAM (KLONOPIN) 0.5 mg tabletIndications :Anxiety associated with depression Take 1 tablet by mouth 2 times daily if needed for Anxiety. 60 tablet 8 Active Active Problems Problem Noted Date Diagnosed Date Controlled substance agreement signed 09/05/2016 Overview (09/05/2016): Signed 09/03/2016 Dr Lydia Dejesus Psychiatry Controlled [...] Recorded Sex Assigned at Not on file Legal Sex Male 1:45 PM CDT Gender Identity Not on file Sexual Orientation Not on file Obstetrics History Last Filed Vital Signs Vital Sign Reading Time Taken Comments Blood Pressure 157/84 05/24/2018 4:24 PM SENIOR DATA SCIENTIST Pulse 84 05/24/2018 4:24 PM SENIOR DATA SCIENTIST Temperature 36.7 C (98.1 F) 08/28/2016 10:58 AM CDT Respiratory Rate 16 05/24/2018 4:24 PM SENIOR DATA SCIENTIST Oxygen Saturation 100% 09/16/2016 9:16 AM CDT Inhaled Oxygen Concentration - - Weight 97.5 kg (215 lb) 05/24/2018 12:46 PM SENIOR DATA SCIENTIST Height 185.5 cm (6' 1.03) 08/28/2016 10:58 AM C DT Body Mass Index 28.34 08/28/2016 10:58 AM CDT Plan of Treatment Health Maintenance Due Date Last Done Comments Tdap 1969 Hepatitis C screening for ag e 18-79 02/19/1976 Tetanus booster 1978 Colonoscopy through age 75 2003 Pneumococcal series for age 50+ (1 of 1 - PCV) 02/19/2008 Zoster (shingles) series for age 50+ (1 of 2) 02/19/2008 BMI (ht and wt on same day) for age 18+ 08/28/2017 08/28/2016 Depression screening for age 12+ 05/26/2019 05/26/2018, 05/24/2018, 12/24/2016, Additional history exists Lipids for age 45-75 09/03/2021 09/03/2016 COVID-19 vaccine series (2023- season) 2023 Influenza for age 65+ 12/20/2023 RSV vaccine for adults or (1 - 1-dose 75+ series) 2033 Procedures Procedure Name Priority Date/Time Associated Diagnosis Comments LIPID PANEL W REFLEX MEASURED LDL Routine 09/03/2016 9:59 AM CDT Hyperlipidemia, unspecified from Last 3 Months or Most Recently Relevant to Health Maintenance Results * (ABNORMAL) LIPID PANEL W REFLEX MEASURED LDL (09/03/2016 9:59 AM CDT) [facility] CHOLESTEROL,TOTAL 263(H) 100 - 199 mg/dL 09/03/2016 5:03 PM CDT [facility] TRIGLYCERIDES 223(H) <150 mg/dL 09/03/2016 5:03 PM CDT [facility] HDL CHOLESTEROL 31(L) >40 mg/dL 7 5:03 PM CDT [facility] NON-HDL CHOLESTEROL 232(H) <145 mg/dl 09/03/2016 5:03 PM CDT [facility] CHOL/HDL RATIO 8.48(H) <4.50 09/03/2016 5:03 PM CDT [facility] LDL CHOLESTEROL 187(H) <=130 mg/dL 09/03/2016 5:03 PM CDT [facility] PATIENT STATUS FASTING 09/03/2016 5:03 PM CDT [facility] Blood BLOOD SPECIMEN / Unknown Venipuncture / Unknown 09/03/2016 9:59 AM CDT 09/03/2016 9:59 AM CDT Samson Cantu DO CHEMISTRY Final Result [facility] [address] [place] [address], [facility] [address] [place] [address], [place] [phone] from Last 3 Months or Most Recently Relevant to Health Maintenance Insurance [facility] [place] [facility] Member Subscriber Plan / Payer (Ef fective 2016-Present) Name:Jerardo Jaquez Relation to Subscriber:Self Name:Jerardo Jaquez Payer ID:Not on file Group ID:[id number] Type:Not on file Address: [employer] Care Teams Highway Administrative Engineer Relationship Specialty Start Date End Date Pcp, No . PCP - General 01/05/20
--- OUTSIDE RECORDS SUMMARY | 2024-06-24 18:10 | XMS_ITS | Patient Health Summary ---
Author Organization [facility] Address [address] [address] Care Team Providers Care Anodizing Line Operator Name Role Phone Yamilka Mejía RN Unavailable [phone] Jessica Beltran RN Unavailable [phone] Note from [facility],non-owned Affiliates and Associated Physician Practices is amultiple site organization consisting of ambulatory clinics and hospital sitesin [place] and [place]. This disclosure is being madepursuant to the Care Everywhere program and may not contain all information available regarding this patient. Last updated 18.[facility] Allergies No known active allergies Medications [...] - 0.049 ng/mL 11/05/2015 5:47 AM CDT [facility] Blood BLOOD SPECIMEN / Unknown 11/05/2015 5:20 AM CDT 11/05/2015 5:24 AM CDT Narrative [facility] - 11/05/2015 5:47 AM CDT Note: [...] Unger DO LAB - CHEMISTRY FARZADE MIKE [facility] [address] [place] [address] * CT SOFT TISSUE NECK [...] 17, 2007. Preliminary interpretation was provided by [facility]. No discrete cystic or solid neck [...] 17, 2007. Preliminary interpretation was provided by [facility]. No discrete cystic or solid neck [...] - 145 mmol/L 11/05/2015 3:34 AM CDT [facility] Potassium 3.8 3.5 - 5.1 mmol/L 11/05/2015 3:34 AM CDT [facility] Chloride 101 98 - 107 mmol/L 11/05/2015 3:34 AM CDT [facility] CO2 29 22 - 31 mmol/L 11/05/2015 3:34 AM CDT [facility] Calcium 9.9 8.5 - 10.1 mg/dL 11/05/2015 3:34 AM CDT [facility] Anion Gap 11 5 - 20 mmol/L 11/05/2015 3:34 AM CDT [facility] BUN 9 7 - 21 mg/dL 11/05/2015 3:34 AM CDT [facility] Creatinine 1.30 0.50 - 1.30 mg/dL 11/05/2015 3:34 AM CDT [facility] Alkaline Phosphatase 89 38 - 126 U/L 11/05/2015 3:34 AM CDT [facility] ALT 22 13 - 61 U/L 11/05/2015 3:34 AM CDT [facility] Comment:See reference range update AST 21 5 - 40 U/L 11/05/2015 3:34 AM CDT [facility] Protein Total 8.0 6.4 - 8.2 gm/dL 11/05/2015 3:34 AM CDT [facility] Albumin 4.1 3.4 - 5.0 gm/dL 11/05/2015 3:34 AM CDT [facility] Bilirubin Total 0.5 0.2 - 1.0 mg/dL 11/05/2015 3:34 AM CDT [facility] eGFR by MDRD 57(L) >60 mL/min/1.7 3m2 11/05/2015 3:34 AM CDT [facility] eGFR by MDRD >60 >60 mL/min/1.7 3m2 11/05/2015 3:34 AM CDT [facility] Blood BLOOD SPECIMEN / Unknown 11/05/2015 2:30 AM CDT 11/05/2015 3:21 AM CDT Shawn Unger DO LAB - CHEMISTRY GÉNESIS MCKEON [facility] [address] [place] [address] * (ABNORMAL) CBC W AUTO DIFFERENTIAL (11/05/2015 [...] - 1 % 11/05/2015 2:29 AM CDT [facility] Neutrophil Absolute 7.58(H) 2.01 - 7.14 x10E9/L 11/05/2015 2:29 AM CDT [facility] Lymphocytes Absolute 2.15 1.07 - 3.94 x10E9/L 11/05/2015 2:29 AM CDT [facility] Monocytes Absolute 1.05 0.26 - 1.07 x10E9/L 11/05/2015 2:29 AM CDT [facility] Eosinophils Absolute 0.30 0 - 0.47 x10E9/L 11/05/2015 2:29 AM CDT [facility] Basophils Absolute 0.03 0 - 0.08 x10E9/L 11/05/2015 2:29 AM CDT [facility] Immature Granulocytes Absolute 0.03 0.00 - 0.06 x10E9/L 11/05/2015 2:29 AM CDT [facility] nRBC Auto 0 /100 WBC 11/05/2015 2:29 AM CDT [facility] Blood BLOOD SPECIMEN / Unknown 11/05/2015 2:23 AM CDT 11/05/2015 2:26 AM CDT Shawn Unger DO LAB - HEMATOLOGY ORD ERABLES [facility] [address] [place] [address] * XR CHEST PA AND LATERAL (11/05/2015 [...] (Bezet) 461 ms [facility] MUSE Calculated P Bond 73 degrees [facility] MUSE Calculated R Bond 24 degrees [facility] MUSE Calculated T Bond 51 degrees [facility] MUSE Interpretation EKG Sinus tachycardia Otherwise normal ECG Confirmed by MARGARITA JONES MD ([id number]) on 11/05/2015 8:21:49 AM [facility] MUSE 11/04/2015 11:0 3 PM CDT 11/05/2015 8:21 AM CDT Shawn Unger DO ECG ORDERABLES Performing Organization Address City/[facility] Co de Phone Number [facility] * RPR (01/13/2015 10:16 PM CDT) Pathologist [facility] RPR Non Reactive Non Reactive 01/14/2015 10:11 AM CDT [facility] Blood BLOOD SPECIMEN / Unknown 01/13/2015 10:16 PM CDT 01/13/2015 10:30 PM CDT Demario Liu MD LAB - CHEMISTRY OR DERABLES [facility] [address] [place] [address] * (ABNORMAL) URINALYSIS ROUTINE AUTO (01/13/2015 10:15 PM CDT) Only the most recent of2 resultswithin the time period is included. Color UA Dark Yellow Straw, Yellow, Dark Yellow 01/13/2015 10:46 PM CDT [facility] Clarity UA Clear 01/13/2015 10:46 PM CDT [facility] Specific Hammond UA 1.030 1.005 - 1.030 01/13/2015 10:46 PM CDT [facility] pH UA 5.5 5.0 - 8.0 pH 01/13/2015 10:46 PM CDT [facility] Protein UA Trace(A) Negative 01/13/2015 10:46 PM CDT [facility] Blood UA Trace(A) Negative 01/13/2015 10:46 PM CDT [facility] Leukocyte UA Negative Negative 01/13/2015 10:46 PM CDT [facility] Nitrite UA Negative Negative 01/13/2015 10:46 PM CDT [facility] Glucose UA Negative Negative 01/13/2015 10:46 PM CDT [facility] Ketone UA 1+(A) Negative 01/13/2015 10:46 PM CDT [facility] Bilirubin UA Negative Negative 01/13/2015 10:46 PM CDT [facility] Urobilinogen UA 0.2 0.1 - 1.0 EU/dL 01/13/2015 10:46 PM CDT [facility] WBC UA Auto 2-5 0-2, 2-5 # /hpf 01/13/2015 10:46 PM CDT [facility] RBC UA Auto 10-20(A) 0-2, 2-5 # /hpf 01/13/2015 10:46 PM CDT [facility] Epithelial Cell UA Auto 0-2 0-2, 2-5 # /hpf 01/13/2015 10:46 PM CDT [facility] Bacteria UA Auto None seen None seen 01/13/2015 10:46 PM CDT [facility] Urine Microscopy Urine microscopy to follow 01/13/2015 10:46 PM T [facility] Urine URINE SPECIMEN FROM URINARY BLADDER / Unknown 01/13/2015 10:15 PM CDT 01/13/2015 10:30 PM CDT Demario Liu MD LAB - URINALYSIS O RDERABLES [facility] [address] [place] [address] * (ABNORMAL) URINALYSIS MICROSCOPIC ONLY (01/13/2015 10:15 PM CDT) [facility] RBC UA 5-10(A) 0-2, 2-5 # /hpf 01/13/2015 10:56 PM CDT [facility] WBC UA 0-2 0-2, 2-5 # /hpf 01/13/2015 10:56 PM CDT [facility] Bacteria UA 1+(A) None Seen 01/13/2015 10:56 PM CDT [facility] Epithelial Cell UA 0-2 0-2, 2-5 01/13/2015 10:56 PM CDT [facility] Mucus UA 1+ 01/13/2015 10:56 PM CDT [facility] Urine URINE SPECIMEN FROM URINARY BLADDER / Unknown 01/13/2015 10:15 PM CDT 01/13/2015 10:30 PM CDT Demario Liu MD LAB - URINALYSIS O RDERABLES Performing Organization Address [facility] de Phone Number [facility] [address] [place] [address] * TSH (01/13/2015 10:15 PM CDT) Only the most recent of3 resultswithin the time period is included. [facility] TSH 1.28 0.358 - 3.740 uIU/mL 01/13/2015 11:05 PM CDT [facility] Blood BLOOD SPECIMEN / Unknown 01/13/2015 10:15 PM CDT 01/13/2015 10:30 PM CDT Demario Liu MD LAB - CHEMISTRY OR DERABLES Performing Organization Address [facility] de Phone Number [facility] [address] [place] [address] * (ABNORMAL) DRUG SCREEN TOX URINE PANEL (01/13/2015 10:14 PM CDT) Only the most recent of2 resultswithin the time period is included. [facility] Amphetamines Screen Urine Not Detected Not Detected 01/13/2015 10:47 PM CDT [facility] Barbiturates Screen Urine Not Detected Not Detected 01/13/2015 10:47 PM CDT [facility] Benzodiazepines Screen Urine Not Detected Not Detected 01/13/2015 10:47 PM CDT [facility] Cannabinoids Screen Urine Detected(A) Not Detected 01/13/2015 10:47 PM CDT [facility] Cocaine Screen Urine Not Detected Not Detected 01/13/2015 10:47 PM CDT [facility] Methadone Screen Urine Not Detected Not Detected 01/13/2015 10:47 PM CDT [facility] Opiate Screen Urine Not Detected Not Detected 01/13/2015 10:47 PM CDT [facility] Phencyclidine Screen Urine Not Detected Not Detected 01/13/2015 10:47 PM CDT [facility] Urine URINE / Unknown 01/13/2015 1 0:14 PM CDT 01/13/2015 10:30 PM CDT Narrative [facility] - 01/13/2015 10:47 PM CDT This [...] MD LAB - URINE CHEMIS TRY ORDERABLES [facility] [address] [place] [address] * XR CHEST 1VW PORTABLE [...] - 30.0 ug/mL 01/12/2015 4:31 PM CDT [facility] Ethanol <3 <10 mg/dL 01/12/2015 4:31 PM CDT [facility] Salicylate 3.0 <20.0 mg/dL 01/12/2015 4:31 PM CDT [facility] Ethanol Calculated <0.100 gm/dL 01/12/2015 4:31 PM CDT [facility] Comment:Not Calculated Blood BLOOD SPECIMEN / Unknown 01/12/2015 3:53 PM CDT 01/12/2015 4:02 PM CDT Narrative [facility] - 01/12/2015 4:31 PM CDT [facility] ACETAMINOPHEN COMMENT Critical values: 4 Hours Post [...] may alter the peak level. Contact the [place] [facility] at or reserved for healthcare professionals to assist you in evaluating potentially toxic acetaminophen levels. Rashid Sky MD LAB - CHEMISTRY O RDERABLES [facility] [address] [place] [address] * MAGNESIUM BLOOD (09/28/2014 6:48 PM CDT) Only the most recent of4 resultswithin the time period is included. Magnesium 1.9 1.6 - 2.6 mg/dL 09/28/2014 7:18 PM CDT [facility] Blood BLOOD SPECIMEN / Unknown 09/28/2014 6:48 PM CDT 09/28/2014 6:58 PM CDT Sarika Bxo MD LAB - CHEMISTRY GÉNESIS MCKEON [facility] Organization Address City/State/ZIP Co de Phone Number [facility] [address] [place] [phone] * CARDIAC PROCEDURE ORDER (07/26/2013 5:31 PM CDT) Narrative 07/26/2013 5:31 PM CDT Ordered by an unspecified provider. A scan was deleted from the Results section by S Interface [[id number]] on 07/04/2013 at 9:14 AM (File: [id number]) A scan was deleted from the Results section by S Interface [[id number]] on 07/26/2013 at 5:31 PM (File: [id number]) Transcriptions Document, Scanned - 07/26/2013 5:31 PM [...] NaCl 0.9 % IVPB 1,500 mg Intravenous Technician'S Helper Estrella Fletcher MD 1,500 mg at 06/29/13 1605 Basic Intervals: Initial (msec) Final P-wave 90 IL 140 QRS 74 QT 313 SCL 500 [...] Basic Intervals: Initial (msec) Final P-wave 90 IL 140 QRS 74 QT 313 SCL 500 [...] CDT Margarita Jones MD 06/27/2013 10:18 PM [facility] [place] Margarita Jones MD, FACC REASON FOR VISIT: [...] 60's-70's. SBP 110's-120's. TROPS: <0.015, BUN 14, BRICK CHIMNEY BUILDER 0.92, K 3.6, TSH 0.947, WBC 8.5, [...] for this basename: BNP:3 in the last 41465 hours Component Name 08/13/12194907/31/11 1305 INR 0.99 [...] EKG Interp Final Sinus bradycardia with short IL Otherwise normal ECG IMPRESSIONS: 1. CMP 2. [...] Jones MD - 06/27/2013 7:30 AM CDT [facility] [place] Margarita Jones MD, FACC REASON FOR VISIT: [...] SR 60's-70's.SBP 110's-120's. TROPS: <0.015, BUN 14, BRICK CHIMNEY BUILDER 0.92, K 3.6, TSH 0.947, WBC8.5, H&H [...] ointment 1 Inch, Active, Topical, BID 0900 [id number] pantoprazole EC (PROTONIX) tablet 40 mg, Active, [...] for this basename: BNP:3 in the last 61074 hours Component Name 08/13/12194907/31/11 1305 INR 0.99 [...] EKG Interp Final Sinus bradycardia with short IL Otherwise normal ECG IMPRESSIONS: 1. CMP 2. [...] included. 06/27/2013 12:1 8 PM CDT Narrative [facility] - 06/28/2013 12:52 PM CDT ECHOCARDIOGRAPHY REPORT Transthoracic Echocardiogram 2D, M-mode, Doppler, and Color Doppler Date of Service: 06/27/2013 Patient: CHASE JAQUEZ : 1960 Age: 53 years Gender: Male Race: Black Height: Weight: BSA: Allergies: NKA Diagnoses: 786.50 - CHEST PAIN NOS Reading Physician: Margarita Jones MD Referring Physician: Margarita Jones MD CLINIC OFFICE MANAGER: SOHAIL Lebron Cardiology Group: [facility] Summary: - Left ventricle: - Systolic [...] Procedure: The study was performed in the [facility]. This was a routine study. The transthoracic [...] MV A Junito: 0.7 m/s MV Dec Marquette: 2.9 m/s2 MV E Junito: 0.6 m/s [...] Jones MD Referring Physician: Margarita Jones MD CLINIC OFFICE MANAGER: Leanne Freeman [facility] Cardiology Group: [facility] Summary: - Left ventricle: - Systolic [...] Procedure: The study was performed in the [facility]. This was a routine study. The transthoracic [...] MV A Junito: 0.7 m/s MV Dec Marquette: 2.9 m/s2 MV E Junito: 0.6 m/s MV E/A Ratio: 0.8 Prepared and signed by Margarita Jones MD Signed 06/28/2013 12:51:50 Margarita Jones MD ECHO ORDERABLES [facility] * STRESS TEST LEXISCAN (NUCLEAR) (06/27/2013 12:00 PM CDT) 06/27/2013 12:0 0 PM CDT Narrative Transcriptions Margarita Jones MD - 06/28/2013 11:21 AM CDT [facility] CHEMICAL STRESS TEST PATIENT: CHASE JAQUEZ MR#: [id number] DATE OF SERVICE: 06/27/2013 CSN: [id number] : 1960 ROOM: [place] [address] REFERRING PHYSICIAN: CONSTANCE AMIN ADMIT DATE: 06/26/2013 INDICATIONS: RESTING EKG: Normal sinus rhythm. Nonspecific ST-T wave abnormality. INTERPRETATION: Patient underwent a stress test using 0.4 mg ofLexiscan. CONCLUSION: 1. No chest pain reported. 2. Nondiagnostic electrocardiogram response. 3. No significant arrhythmia noted. 4. Myocardial perfusion scan pending. MARGARITA JONES MD ASN/MODL #: [id number] CHEMICAL STRESS TEST - DP Margarita Jones MD CARDIAC SERVICES ORD ERABLES [facility] * BASIC METABOLIC PANEL (CALCIUM TOTAL) (06/27/2013 4:41 AM CDT) [facility] Glucose 98 74 - 106 mg/dL 06/27/2013 5:28 AM CDT [facility] Sodium 139 136 - 145 mmol/L 06/27/2013 5:28 AM CDT [facility] Potassium 3.6 3.5 - 5.1 mmol/L 06/27/2013 5:28 AM CDT [facility] Chloride 106 98 - 107 mmol/L 06/27/2013 5:28 AM CDT [facility] CO2 26 22 - 31 mmol/L 06/27/2013 5:28 AM CDT [facility] Calcium 9.3 8.5 - 10.1 mg/dL 06/27/2013 5:28 AM CDT [facility] Anion Gap 7 5 - 15 mmol/L 06/27/2013 5:28 AM CDT [facility] BUN 14 7 - 21 mg/dL 06/27/2013 5:28 AM CDT [facility] Creatinine 0.92 0.50 - 1.30 mg/dL 06/27/2013 5:28 AM CDT [facility] eGFR by MDRD >60 >60 mL/min/1.7 3m2 06/27/2013 5:28 AM CDT [facility] eGFR by MDRD >60 >60 mL/min/1.7 3m2 06/27/2013 5:28 AM CDT [facility] Blood BLOOD SPECIMEN / Unknown 06/27/2013 4:41 AM CDT 06/27/2013 4:57 AM CDT Constance Amin MD LAB - CHEMISTRY GÉNESIS MCKEON [facility] [address] [place] [address] * (ABNORMAL) LIPID PROFILE (06/27/2013 4:41 AM CDT) Only the most recent of2 resultswithin the time period is included. Cholesterol 171 <200 mg/dL 06/27/2013 8:36 AM CDT [facility] Triglycerides 122 <150 mg/dL 06/27/2013 8:36 AM CDT [facility] HDL Cholesterol 30(L) >40 mg/dL 4 8:36 AM CDT [facility] LDL Calculated 117 <130 mg/dL 06/27/2013 8:36 AM CDT [facility] VLDL Calculated 24 <=30 mg/dL 4 8:36 AM CDT [facility] Chol HDL Ratio 5.7(H) <4.5 06/27/2013 8:36 AM CDT [facility] Blood BLOOD SPECIMEN / Unknown 06/27/2013 4:41 AM CDT 06/27/2013 4:57 AM CDT Margarita Jones MD LAB - CHEMISTRY GÉNESIS MCKEON Performing Organization Address [facility] Co de Phone Number [facility] [address] [place] [address] * STRESS TEST NUCLEAR (08/16/2012 12:00 PM CDT) 08/16/2012 12:0 0 PM CDT Narrative Transcriptions Margarita Jones MD - 08/16/2012 12:14 PM CDT [facility] STRESS TEST PATIENT: CHASE JAQUEZ MR#: [id number] DATE OF SERVICE: 08/16/2012 CSN: [id number] : 1960 ROOM: [place] [address] REFERRING PHYSICIAN: Constance Hernandez DO ADMIT DATE: [...] scan pending. MARGARITA JONES MD ASN/MODL #: [id number] Margarita Jones MD CARDIAC SERVICES ORD ERABLES [facility] * HEMOGLOBIN A1C (08/15/2012 3:14 AM CDT) [facility] Hemoglobin A1c 5.7 4.2 - 6.3 % 08/15/2012 4:51 AM CDT [facility] Estimated Average Glucose 117 mg/dL 08/15/2012 4:51 AM CDT [facility] Whole blood specimen (specimen) BLOOD SPECIMEN WITH EDTA / Unknown 08/15/2012 3:14 AM CDT 08/15/2012 4:19 AM CDT David Zee MD LAB - CHEMISTRY ORDFrancesca MCKEON [facility] [address] [place] [address] * D-DIMER (08/14/2012 1:38 PM CDT) [facility] D-Dimer <0.19 0 - 0.5 mg/L FEU 08/14/2012 2:26 PM CDT [facility] Blood specimen (specimen) BLOOD SPECIMEN / Unknown 08/14/2012 1:38 PM CDT 08/14/2012 1:47 PM CDT Narrative [facility] - 08/14/2012 2:26 PM CDT The innovance D-dimer assay now in use at [facility], [facility] and [facility] is intended for use as an aid [...] - COAGULATION OR DERABLES Performing Organization Address [facility] Co de Phone Number [facility] [address] [place] [address] * T4 FREE (08/14/2012 11:57 AM CDT) [facility] T4 Free 0.93 0.65 - 1.34 ng/dL 08/14/2012 1:40 PM CDT [facility] Blood specimen (specimen) BLOOD SPECIMEN / Unknown 08/14/2012 11:57 AM CDT 08/14/2012 1:21 PM CDT David Zee MD LAB - CHEMISTRY GÉNESIS MCKEON Performing Organization Address [facility] Co de Phone Number [facility] [address] [place] [address] * MYOGLOBIN BLOOD (08/13/2012 7:50 PM CDT) Only the most recent of2 resultswithin the time period is included. Myoglobin 63 <100 08/13/2012 8:17 PM CDT [facility] Blood specimen (specimen) BLOOD SPECIMEN / Unknown 08/13/2012 7:50 PM CDT 08/13/2012 7:55 PM CDT Constance Russellrentino DO LAB - CHEMISTRY OR DERABLES Performing Organization Address City/[facility]/ZIP Co de Phone Number [facility] [address] [place] [phone] * PTT (08/13/2012 7:50 PM CDT) Only the most recent of2 resultswithin the time period is included. Pathologist [facility] PTT 29.6 24.0 - 32.0 sec 08/13/2012 8:15 PM CDT [facility] Blood specimen (specimen) BLOOD SPECIMEN / Unknown 08/13/2012 7:50 PM CDT 08/13/2012 7:55 PM CDT Constance Hernandez DO LAB - COAGULATION ORDERABLES Performing Organization Address City/[facility] Co de Phone Number [facility] [address] [place] [phone] * PT-INR (08/13/2012 7:50 PM CDT) Only the most recent of2 resultswithin the time period is included. Pathologist [facility] PT 10.4 9.4 - 11.2 sec 08/13/2012 8:15 PM CDT [facility] INR 0.99 0.9 - 1.1 08/13/2012 8:15 PM CDT [facility] Blood specimen (specimen) BLOOD SPECIMEN / Unknown 08/13/2012 7:50 PM CDT 08/13/2012 7:55 PM CDT Narrative [facility] - 08/13/2012 8:15 PM CDT Conventional Anticoagulant Therapy INR Reference Ranges: 2.0-3.0 Intensive Anticoagulant Therapy INR Reference Ranges: 2.5-3.5 Constance Hernandez DO LAB - COAGULATION ORDERABLES [facility] [address] [place] [address] Care Teams Anodizing Line Operator Relationship Specialty Start Date End Date Yamilka Mejía RN [employer] 06/27/13 Jessica Beltran RN [employer] 06/30/13
[2024-06-24] MEDS: OXYMETAZOLINE 0.05% NASAL SPRAY 1 SPRAY NOSTRIL-B (18:13)
--- NOTE | 2024-06-25 23:19 | ED.NURSE ---
patient called to ask questions about side effects and medication dosing, instructions provided/reinforced from MD Starks discharge information.
== END 2024-06-24 18:24 | disposition home or self-care (01) ==
LOC: ED 18:07
PROVIDERS: Emergency Provider Emergency Medicine; PCP Internal Medicine
DX: J20.5 Acute bronchitis due to respiratory syncytial virus (principal)
CPT/HCPCS: 87631; 99282; 99283; A9270

== ENCOUNTER 2024-08-31 15:51 | Outpatient (CLI) | payer MEDICAID, SELFPAY ==
--- NOTE | 2024-08-31 16:00 | CRLHL7_ITS ---
For Patients: As a result of the Cures Act, medical imaging exams and procedure reports are released immediately into your electronic medical record. You may view this report before your referring provider. If you have questions, please contact your health care provider. Indication: CHRONIC SINUSITIS Technique: Performed without IV contrast Comparison: None available Findings: Frontal sinuses: Mild mucosal thickening is present within the inferior frontal sinuses. Ethmoid sinuses: Minimal mucosal thickening within the right anterior ethmoid sinus. Clear left ethmoid sinus. Maxillary sinuses: Clear. The maxillary sinus drainage pathways are patent on both sides. Sphenoid sinuses: Clear, including both sphenoethmoidal recesses. Nasal Cavity: Leftward curvature nasal septum with associated left-sided nasal septal spur. No polyps. No TMJ abnormalities identified. The visualized portions of the orbits, intracranial contents and upper soft tissue neck are grossly negative. Impression: 1. Minimal bilateral sinus disease involving the frontal and right ethmoid sinuses. 2. Leftward curvature of the nasal septum with left-sided nasal septal spur. Please note that all CT scans at this facility use dose modulation, iterative reconstruction, and/or weight-based dosing when appropriate to reduce radiation dose to as low as reasonably achievable. Dictated by Boyd Leyva MD @ 09/01/2024 10:58:49 AM (Electronically Signed)
== END 2024-08-31 15:52 | disposition home or self-care (01) ==
LOC: CT 15:52
PROVIDERS: PCP Internal Medicine; Visit Provider Internal Medicine
DX: J32.9 Chronic sinusitis, unspecified (principal); J32.2 Chronic ethmoidal sinusitis; J34.2 Deviated nasal septum
CPT/HCPCS: 70486

== ENCOUNTER 2024-09-02 22:22 | Emergency (ER) | payer MEDICAID, SELFPAY ==
[2024-09-02 22:25] VITALS: BP 154/90; PULSE 96; RESP 16; TEMP 36.4; O2SAT 99; BMI 26.7
--- NOTE | 2024-09-02 23:01 | ED.GENADULT ---
HPI - General Adult General Date Seen: 09/02/24 Chief complaint: Shortness of Breath/Dyspnea Stated complaint: difficulty breathing, deviated septum Time Seen by Provider: 09/02/24 22:23 History of Present Illness HPI narrative: Patient is a 64-year-old male with longstanding history of congestion and difficulty breathing, I saw him at the end of 2022 with similar symptoms and recommended ENT follow-up at that time which he did not do. He has been seeing his primary doctor in clinic recently with sinus congestion and he says fluid in his left ear, has been on several rounds of antibiotics. Had a sinus CT a couple of days ago and just got the results of that which showed a deviated septum but no significant sinus disease. He says tonight he was lying down and he felt congested in his nose and throat, like he had to sit up to breathe. He feels better now, but he says at the time he was worried he might . This was not shortness of breath in his chest, he did not have chest pain. It was all up in his nose and throat. Related Data Home Medications ?Medication ?Instructions ?Recorded ?Confirmed aspirin 81 mg tablet,delayed 81 mg PO QDAY 04/16/23 08/31/24 release escitalopram oxalate 10 mg tablet 5 mg PO QDAY PRN 08/11/24 08/31/24 Previous Rx's ?Medication ?Instructions ?Recorded clonazepam 0.5 mg tablet 0.5 mg PO BID PRN panic attacks 07/20/24 #30 tabs cholecalciferol (vitamin D3) 125 125 mcg PO QDAY #30 caps 08/12/24 mcg (5,000 unit) capsule meclizine 25 mg tablet 25 mg PO QID PRN dizziness #20 tabs 08/12/24 triamcinolone acetonide 0.5 % 1 applic topical QDAY PRN rash #15 08/12/24 topical cream grams azithromycin 250 mg tablet See Rx Instructions PO .COMPLEX #6 08/31/24 (Zithromax) tabs Allergies Allergy/AdvReac Type Severity Reaction Status Date / Time No Known Drug Allergies Allergy Verified 08/31/24 15:09 Review of Systems Status of ROS: Reports: 6 or more systems reviewed and unremarkable except as noted in History and below [facility] Medical History Sinusitis ?J32.9 - Chronic sinusitis, unspecified (ICD-10) Rash ?R21 - Rash and other nonspecific skin eruption (ICD-10) Insomnia ?G47.00 - Insomnia, unspecified (ICD-10) 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 (ICD-10) PTSD (post-traumatic stress disorder) ?F43.10 - Post-traumatic stress disorder, unspecified (ICD-10) Panic attack ?F41.0 - Panic disorder [episodic paroxysmal anxiety] (ICD-10) Hyperlipidemia ?E78.5 - Hyperlipidemia, unspecified (ICD-10) Hypertension ?I10 - Essential (primary) hypertension (ICD-10) Surgical History No significant past surgical history Social History Smoking Status: Current every day smoker What tobacco products do you use: cigarettes Do you use any of these nicotine containing products: None Second hand tobacco smoke exposure: Yes How often do you have a drink containing alcohol: never How often do you have six or more drinks on one occasion: Never AUDIT-C Alcohol total score: 0 Non-prescribed substance use: marijuana (any form) Exam Narrative: Exam Narrative: Vital signs reviewed In general, alert, nontoxic male. He is breathing easily, speaks in full sentences. Head: Normocephalic, atraumatic. Eyes: Sclera clear. Pupils equal and reactive. ENT: Mucous membranes moist. He does have a little bit of mucus in the back of his throat. Otherwise his throat is normal, no masses, airway patent. TMs look normal to me. Nares are clear. Neck: Supple without adenopathy. No masses, no stridor. Heart: Regular rate and rhythm without murmur. Lungs: Clear. No increased work of breathing, crackles or wheezes. Abdomen: Soft, nontender to palpation. Extremities: Well perfused, pulses intact. No significant edema. Neurologic: Alert, conversant. Speech fluent, face symmetric. Moves all extremities equally. Skin: Warm, dry well perfused. Affect: Normal. Const: Vital Signs, click to edit/add: Vital Signs - 24 hr 09/02/24 22:25 Temperature 97.5 F L Pulse Rate [Left P ulse Oximeter] 96 Respiratory Rate 16 Blood Pressure [Ri ght Upper Arm] 154/90 H Pulse Oximetry 99 Oxygen Delivery Me thod Room Air Course Course ED Course: Reviewed with him that I do not think this represents a life-threatening problem. I would describe his presentation as a globus sensation, he does have a little bit of mucus in his throat and it is possible this was contributing to his symptoms. I again stressed to him that I think ENT follow-up is a good next step for him, he does have a long history of smoking, has not yet quit and acknowledges that it is very difficult to do so. I do not see anything in his throat exam but certainly would be worthwhile seeing ENT to make sure there are no other concerning findings. Could consider a trial of treatment for gastroesophageal reflux as well but considering that this happened tonight on the heels of finding out about the sinus CT I wonder if this was somewhat prompted by concerns about his deviated septum. In any case, given essentially normal vital signs, reassuring exam, I think it is fine to discharge home. Discussed that he can come back at any time if he is feeling worse. He does say that he missed the call from the ENT clinic yesterday, he will have to call again on Thursday to make that appointment. Vital Signs Vital signs: Initial Vital Signs Temperature 97.5 F L 09/02/24 22:25 Temperature Source Temporal Artery Scan 09/02/24 22:25 Pulse Rate 96 09/02/24 22:25 Pulse Rhythm Regular 09/02/24 22:25 Respiratory Rate 16 09/02/24 22:25 Respiratory Effort Normal 09/02/24 22:25 Respiratory Depth Normal 09/02/24 22:25 Respiratory Pattern Normal 09/02/24 22:25 Blood Pressure 154/90 H 09/02/24 22:25 Blood Pressure Mean 111 H 09/02/24 22:25 Blood Pressure Position Sitting 09/02/24 22:25 Pulse Oximetry 99 09/02/24 22:25 Oxygen Delivery Method Room Air 09/02/24 22:25 Vital Signs Temperature 97.5 F L 09/02/24 22:25 Pulse Rate 96 09/02/24 22:25 Respiratory Rate 16 09/02/24 22:25 Blood Pressure 154/90 H 09/02/24 22:25 Pulse Oximetry 99 09/02/24 22:25 Oxygen Delivery Method Room Air 09/02/24 22:25 Temperature 97.5 F L 09/02/24 22:25 Pulse Rate 96 09/02/24 22:25 Respiratory Rate 16 09/02/24 22:25 Blood Pressure 154/90 H 09/02/24 22:25 Pulse Oximetry 99 09/02/24 22:25 Oxygen Delivery Method Room Air 09/02/24 22:25 Discharge Plan Discharge Clinical Impression: Globus sensation Patient Disposition: Home, Self-Care Condition: Improved Additional Instructions: Your exam looks good tonight, you do have a little bit of mucus in the back of your throat which may be contributing to feeling like your throat is plugging up a little bit. Your vital signs look good though and the rest of your exam is unremarkable. Your CT scan did not show any significant sinus infection and I do not see an ear infection tonight. Please make sure to call the clinic and make an appointment to follow-up with ENT as recommended by Dr. Arauz as I think that is an important next step for you. Return any time if you are feeling worse. Activity Level: No Restrictions Discharge Diet: Regular Prescriptions: No Action azithromycin [Zithromax] 250 mg tablet See Rx Instructions PO .COMPLEX Qty: 6 0RF Rx Instructions: For 250 mg dose pack: take 500 mg today (day 1), then 250 mg for 4 days (days 2-5) PO aspirin 81 mg tablet,delayed release (DR/EC) 81 mg PO QDAY escitalopram oxalate 10 mg tablet 5 mg PO QDAY PRN clonazepam 0.5 mg tablet 0.5 mg PO BID PRN (Reason: panic attacks) Qty: 30 0RF meclizine 25 mg tablet 25 mg PO QID PRN (Reason: dizziness) Qty: 20 0RF cholecalciferol (vitamin D3) 125 mcg (5,000 unit) capsule 125 mcg PO QDAY Qty: 30 0RF triamcinolone acetonide 0.5 % cream 1 applic topical QDAY PRN (Reason: rash) Qty: 15 3RF Follow Up/Referrals: Jean-Paul Arauz MD [Primary Care Provider] - [facility]
== END 2024-09-02 22:46 | disposition home or self-care (01) ==
LOC: ED 22:40
PROVIDERS: Emergency Provider Emergency Medicine; PCP Internal Medicine
DX: R09.A2 Foreign body sensation, throat (principal)
CPT/HCPCS: 99282; 99283

== ENCOUNTER 2024-09-04 17:14 | Emergency (ER) | payer MEDICAID, SELFPAY ==
[2024-09-04 17:30] VITALS: BP 158/96; PULSE 77; RESP 20; TEMP 36.9; O2SAT 98; BMI 26.4
--- OUTSIDE RECORDS SUMMARY | 2024-09-04 17:57 | XMS_ITS | Clinical Summary ---
Author Organization [facility] Address [address] [place] [address] Care Team Providers Care Steam Pan Sponger Name Role Phone Kym, Yamilka Karla RN Unavailable [phone] Jessica Beltran RN Unavailable [phone] Source Comments [facility],non-owned Affiliates and Associated Physician Practices is amultiple site organization consisting of ambulatory clinics and hospital sitesin [place], [place], [place] and [place]. This disclosure is being madepursuant to the Care Everywhere program and may not contain all information available regarding this patient. Last updated 18.[facility] Allergies No known active allergies Medications * This document contains information received from the source organization and may not represent a complete record from that organization. * Be aware that medications may not be up to date on this document. Alwaysverify current medications with the patient. lovastatin (MEVACOR) 40 MG tabletIndication s:High Cholesterol Take 40 mg by mouth at bedtime Reasons: High Cholesterol Active hydrochlorothiaz ishmael (HYDRODIURIL) 50 MG tabletIndication s:Hypertension Take 50 mg by mouth once daily Reasons: High Blood Pressure Active clonazePAM (KLONOPIN) 0.5 MG tabletIndication s:Anxiety Take 1 Tab by mouth 3 times daily Reasons: Feeling Anxious 90 Tab 0 5 Active FLUoxetine (PROZAC) 20 MG capsuleIndicatio ns:Major Depressive Disorder Take 1 Cap by mouth once daily Reasons: Major Depressive Disorder 30 Cap 1 5 Active ibuprofen (MOTRIN) 600 MG tablet Take 1 Tab by mouth every 6 hours as needed for Pain 20 Tab 0 6 Active traMADol (ULTRAM) 50 MG tablet Take 1 Tab by mouth every 6 hours as needed for Pain 10 Tab 0 6 Active Active Problems Problem Noted Date Diagnosed [...] at Not on file Legal Sex Male 6:53 AM 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 Gender Identity Not on file Sexual Orientation [...] VACCINE (1 - 2023-2 5 season) 2023 DEPRESSION SCREENING 04/20/2024 INFLUENZA VACCINE (Season Ended) 2024 Respiratory Syncytial Virus (RSV) Vaccine Pt: or [...] to complete this topic MENINGOCOCCAL (Group B) VACC INE SHARED DECISION-MAKING Aged Out No longer eligibl e based on patient's age to complete this topic MENINGOCOCCAL GROUPS A/C/Y/W VACCINE Aged Out No longer eligible b ased on patient's age to complete this topic [...] 10:18 PM 08/16/2012 9:21 PM Care Teams Steam Pan Sponger Relationship Specialty Start Date End Date Yamilka Mejía RN M[employer] Mix Operator 06/27/13 Jessica Beltran RN Moto Mix Operator 06/30/13
--- OUTSIDE RECORDS SUMMARY | 2024-09-04 17:57 | XMS_ITS | Clinical Summary ---
Author Organization [employer] [facility] Address [address] [place] [id number] Care Team Providers Care Skate Maker Name Role Phone Pcp, No Primary Care [...] Comments Blood Pressure 157/84 05/24/2018 4:24 PM [employer] OPERATOR Pulse 84 05/24/2018 4:24 PM [employer] OPERATOR Temperature 36.7 C (98.1 F) 08/28/2016 10:58 AM CDT Respiratory Rate 16 05/24/2018 4:24 PM [employer] OPERATOR Oxygen Saturation 100% 09/16/2016 9:16 AM CDT Inhaled Oxygen Concentration - - Weight 97.5 kg (215 lb) 05/24/2018 12:46 PM [employer] OPERATOR Height 185.5 cm (6' 1.03) 08/28/2016 10:58 AM C DT Body Mass Index 28.34 08/28/2016 10:58 AM CDT Plan of Treatment Health Maintenance Due Date Last Done Comments Tdap 1969 Depression screening for age 12+ 1970 Hepatitis C screening for age 18-79 02/19/1976 Tetanus booster 1978 Colonoscopy through age 75 2003 Pneumococcal series for age 50+ (1 of 1 - PCV) 008 Zoster (shingles) series for age 50+ (1 of 2) 02/19/20 08 BMI (ht and wt on same day) for age 18+ 08/28/2017 0 08/28/2016 Lipids for age 45-75 09/03/2021 09/03/2016 COVID-19 vaccine series (2023- season) Influenza Vaccine (Season Ended) 2024 RSV vaccine for adults or pr egnancy (1 - 1-dose 75+ series) 2033 Procedures Procedure Name Priority Date/Time Associated Diagnosis Comments LIPID PANEL W REFLEX MEASURED LDL Routine 09/03/2016 9:59 AM CDT Hyperlipidemia, unspecified from Last 3 Months or Most Recently Relevant to Health Maintenance Results * (ABNORMAL) LIPID PANEL W REFLEX MEASURED LDL (09/03/2016 9:59 AM CDT) CHOLESTEROL,TOTAL 263(H) 100 - 199 mg/dL 09/03/2016 5:03 PM CDT [facility] TRIGLYCERIDES 223(H) <150 mg/dL 09/03/2016 5:03 PM CDT [facility] HDL CHOLESTEROL 31(L) >40 mg/dL 7 5:03 PM CDT [facility] NON-HDL CHOLESTEROL 232(H) <145 mg/dl 09/03/2016 5:03 PM CDT [facility] CHOL/HDL RATIO 8.48(H) <4.50 09/03/2016 5:03 PM CDT [facility] LDL CHOLESTEROL 187(H) <=130 mg/dL 09/03/2016 5:03 PM CDT [facility] PATIENT STATUS FASTING 09/03/2016 5:03 PM CDT [facility] Blood BLOOD SPECIMEN / Unknown Venipuncture / Unknown 09/03/2016 9:59 AM CDT 09/03/2016 9:59 AM CDT Samson Cantu DO CHEMISTRY Final Result [facility] [address] [place] [address], [facility] [address] [place] [address], from Last 3 Months or Most Recently Relevant to Health Maintenance Insurance [facility] REFERRAL Member Subscriber Plan / Payer (Ef fective 2016-Present) Name:Jerardo Jaquez Relation to Subscriber:Self Name:Jerardo Jaquez Payer ID:Not on file Group ID:[id number] Type:Not on file Address: [employer] Care Teams Skate Maker Relationship Specialty Start Date End Date Pcp, No . PCP - General 01/05/20
--- NOTE | 2024-09-04 18:23 | ED_ITS ---
HPI - Dizziness General Time Seen by Provider: 18:23 Date Seen: 09/04/24 Chief Complaint: Dizziness/Vertigo Stated Complaint: dizziness/blacking out Time Seen by Provider: 09/04/24 18:23 Source: patient and RN notes reviewed Mode of arrival: ambulatory Limitations: no limitations History of Present Illness HPI Narrative: Jerardo is a very pleasant 64-year-old gentleman with a history of tachy-henry syndrome, multiple treatments for sinusitis with continued symptoms who comes to the emergency room for evaluation regarding vertigo and near syncope. Alejandrina notes that he has been on multiple antibiotics including a Z-Juan Luis x2 on Augmentin for sinusitis as well as a prednisone does and he still has drainage from his nose and has ear discomfort and pressure. He states that on ThursdaySeptember 02 he had the onset of dizziness that he describes as the room spinning. He notes today he got up and he ?saw stars? but did not pass out. During this time he felt a little sensation in his chest and it was hard for him to breathe. He does have a history of tachy-henry syndrome and even has the old [employer] loop monitor still in his chest. States it has been there for about 12 years and should have been taken out 10 years ago. Patient has not had fever chills vomiting. He was initially seen on ThursdaySeptember 02 at which time he was diagnosed with globus sensation. He was discharged home as he was feeling better. Notes that looking up especially causes him to be vertiginous. Able to move his head side to side without difficulty. Notes that laying flat also sometimes bothers him. Related Data Home Medications ?Medication ?Instructions ?Recorded ?Confirmed aspirin 81 mg tablet,delayed 81 mg PO QDAY 04/16/23 09/04/24 release escitalopram oxalate 10 mg tablet 5 mg PO QDAY PRN 08/11/24 09/04/24 Previous Rx's ?Medication ?Instructions ?Recorded clonazepam 0.5 mg tablet 0.5 mg PO BID PRN panic attacks 07/20/24 #30 tabs cholecalciferol (vitamin D3) 125 125 mcg PO QDAY #30 caps 08/12/24 mcg (5,000 unit) capsule meclizine 25 mg tablet 25 mg PO QID PRN dizziness #20 tabs 08/12/24 triamcinolone acetonide 0.5 % 1 applic topical QDAY PRN rash #15 08/12/24 topical cream grams azithromycin 250 mg tablet See Rx Instructions PO .COMPLEX #6 08/31/24 (Zithromax) tabs Allergies Allergy/AdvReac Type Severity Reaction Status Date / Time No Known Drug Allergies Allergy Verified 09/04/24 17:40 Review of Systems Status of ROS: Reports: 10 or more systems reviewed and unremarkable except as noted in History and below [facility] Medical History Sinusitis ?J32.9 - Chronic sinusitis, unspecified (ICD-10) Rash ?R21 - Rash and other nonspecific skin eruption (ICD-10) Insomnia ?G47.00 - Insomnia, unspecified (ICD-10) 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 (ICD-10) PTSD (post-traumatic stress disorder) ?F43.10 - Post-traumatic stress disorder, unspecified (ICD-10) Panic attack ?F41.0 - Panic disorder [episodic paroxysmal anxiety] (ICD-10) Hyperlipidemia ?E78.5 - Hyperlipidemia, unspecified (ICD-10) Hypertension ?I10 - Essential (primary) hypertension (ICD-10) Surgical History No significant past surgical history Social History Smoking Status: Current every day smoker What tobacco products do you use: cigarettes Do you use any of these nicotine containing products: None Second hand tobacco smoke exposure: Yes How often do you have a drink containing alcohol: never How often do you have six or more drinks on one occasion: Never AUDIT-C Alcohol total score: 0 Non-prescribed substance use: marijuana (any form) Exam Narrative: Exam Narrative: Alert and oriented. EOM is full without nystagmus. Face symmetrical with eyebrow raise smile gritting of the teeth. Tongue is midline. Oral cavity with moist mucous membranes no significant erythema in the posterior oropharynx. Neck is supple without lymphadenopathy. Heart with regular rate and rhythm and lungs are clear bilaterally. Abdomen soft. Moving all extremities without difficulty. Finger to nose and balance intact. TMs bilaterally without erythema or fluid. Const: Vital Signs, click to edit/add: Vital Signs - 24 hr 09/04/24 17:30 09/04/24 18:45 09/04/24 19:54 Temperature 98.5 F Pulse Rate [Right Pulse Oximeter] 77 Respiratory Rate 20 16 Blood Pressure [Ri ght Upper Arm] 158/96 H Blood Pressure [or thostatic lying] 150/94 H Blood Pressure [or thostatic sitting] 155/99 H Blood Pressure [or thostatic standing ] 162/103 H Pulse Oximetry 98 99 Oxygen Delivery Me thod Room Air Room Air Documenting provider has reviewed patient's vital signs: yes Course Course ED Course: Differential diagnosis includes but is not limited to inner ear dysfunction, otitis media, pneumonia, arrhythmia, electrolyte imbalance, anxiety. Given this is his 2nd visit to the ED in 48 hours will check a CBC, comprehensive panel, UA troponin EKG chest x-ray. Reevaluation(s) Reevaluation #1: Orthostatic vital signs note no significant change. Patient was also asymptomat ic at that time. Vital Signs Vital signs: Initial Vital Signs Temperature 98.5 F 09/04/24 17:30 Temperature Source Temporal Artery Scan 09/04/24 17:30 Pulse Rate 77 09/04/24 17:30 Pulse Rhythm Regular 09/04/24 17:30 Pulse Strength 3+ Normal 09/04/24 17:30 Respiratory Rate 20 09/04/24 17:30 Blood Pressure 158/96 H 09/04/24 17:30 Blood Pressure Mean 116 H 09/04/24 17:30 Blood Pressure Position Sitting 09/04/24 17:30 Pulse Oximetry 98 09/04/24 17:30 Oxygen Delivery Method Room Air 09/04/24 17:30 Vital Signs Temperature 98.5 F 09/04/24 17:30 Pulse Rate 77 09/04/24 17:30 Respiratory Rate 20 09/04/24 17:30 Blood Pressure 158/96 H 09/04/24 17:30 Pulse Oximetry 98 09/04/24 17:30 Oxygen Delivery Method Room Air 09/04/24 17:30 Temperature 98.5 F 09/04/24 17:30 Pulse Rate 77 09/04/24 17:30 Respiratory Rate 16 09/04/24 19:54 Blood Pressure 150/94 H 09/04/24 18:45 Pulse Oximetry 99 09/04/24 19:54 Oxygen Delivery Method Room Air 09/04/24 19:54 MDM - Dizziness MDM Narrative Medical decision making narrative: 1. Vertigo-patient noted to have mainly positional dizziness. Notes that he has dealt with this over his life for many years. Seems to have been worsened by recent sinusitis and continued congestion in the head. TMs without any abnormality tonight. Patient noted to be feeling better as we talked about his laboratory values being reassuring. He does have meclizine at home but was afraid to take it. I do encourage him to take it if his experiencing significant dizziness. 2. Near syncope-EKG reassuring at this time. No evidence of arrhythmia while he was here in the emergency room. Given the globus sensation that he experienced on Thursday and description of what sounds like many of his symptoms of shortness of breath occurring when he is lying down I do wonder about sleep apnea. Fortunately he does plan on seeing ENT in the near future. 3. Disposition-home at this time. Reassurance that his x-ray EKG and laboratory values were reassuring. I only had 1 troponin done as patient has had symptoms since Thursday and felt that this was sufficient. I did tell Jerardo to return to the ER if he has worsening symptoms. No evidence of bradycardia significant or tachy arrhythmias during his time here. Medical Records Attestation: I reviewed the patient's medical records. Lab Data Attestation: I reviewed the patient's lab results. Labs: Lab Results 09/04/24 Range/Units 19:20 WBC 10.14 (4.50-11.00) K/uL RBC 5.02 (4.30-5.90) m/uL Hgb 13.3 L (13.5-17.5) gm/dL Hct 41.7 (37.0-53.0) % MCV 83 (80-100) fL MCH 27 (26-34) pg MCHC 32 (32-36) gm/dL RDW Coeff of Juanito 15.0 (11.5-15.5) % Plt Count 252 (140-440) K/uL Neut % (Auto) 61.7 (42.0-72.0) % Lymph % (Auto) 21.6 (20-44) % [place] % (Auto) 7.8 (0.0-11.0) % Eos % (Auto) 8.1 H (0.0-7.0) % Baso % (Auto) 0.5 (0.0-3.0) % Neut # (Auto) 6.26 (1.7-7.0) K/uL Lymph # (Auto) 2.19 (0.90-2.90) K/uL [place] # (Auto) 0.80 (0.00-0.90) K/UL Eos # (Auto) 0.80 H (0.00-0.50) K/uL Baso # (Auto) 0.05 (0.00-0.30) K/uL Abs Immat Gran (auto) 0.03 (0.00-0.30) K/uL Imm/Tot Granulo (auto) 0.3 % Sodium 141 (135-149) mmol/L Potassium 3.8 (3.6-5.1) mmol/L Chloride 104 (96-114) mmol/L Carbon Dioxide 29 (20-32) mmol/L Anion Gap 8 (7-15) mEq/L BUN 10 (7-30) mg/dL Creatinine 1.3 (0.5-1.5) mg/dL Estimated Creat Clear 64.99 Estimated GFR 61 ml/min Glucose 95 (60-115) mg/dL Calcium 10.5 (8.4-10.6) mg/dL Total Bilirubin 0.7 (0.1-1.5) mg/dL AST 27 (12-35) U/L ALT 18 (4-50) U/L Alkaline Phosphatase 83 (40-150) U/L Troponin I < 0.01 (0.01-0.04) ng/mL Total Protein 7.6 (6.0-8.3) g/dL Albumin 4.5 (3.3-5.0) g/dL Urine Color Yellow (Yellow) Urine Appearance Clear (Clear) Urine pH 6.5 (5.0-8.5) Ur Specific [place] 1.020 (1.000-1.030) Urine Protein Negative (Negative) Urine Glucose (UA) Negative (Negative) Urine Ketones Negative (Negative) Urine Blood Trace-intact A (Negative) Urine Nitrite Negative (Negative) Urine Bilirubin Negative (Negative) Urine Urobilinogen 0.2 (0.2-1.0) Ur Leukocyte Esterase Negative (Negative) Urine RBC 0-2 (0-2) Urine WBC 0-2 (0-5) Ur Squamous Epith Cells None (None-Few) Urine Bacteria None (None) POC Troponin I Cancelled Imaging Data Chest x-ray: Attestation: I have reviewed the pertinent imaging results. Radiologist's impression: Mediastinum: The mediastinum is normal in appearance. The heart silhouette is normal in size and morphology. Lung: Both lungs are unremarkable in appearance. No sign of pleural effusion seen. No pneumothorax is identified. Bone and Soft tissue: Unremarkable for age. A loop recorder is noted on the left chest. IMPRESSION: 1. No acute cardiopulmonary disease is seen. ECG Data Attestation: I personally reviewed and interpreted this ECG as follows: ECG interpretation date: 09/04/24 Interpretation: EKG by my read shows sinus bradycardia at a rate of 56. I do not note any acute ST or T-wave changes. Normal QT and WA interval. Discharge Plan Discharge Clinical Impression: Vertigo, Shortness of breath Patient Disposition: Home, Self-Care Condition: Improved Additional Instructions: Follow-up with ENT as previously scheduled. Return to the ER as needed. You tested negative for any heart problems tonight. However, should you feel poorly have recurring symptoms please return to the ER. Activity Level: No Restrictions Discharge Diet: Regular Prescriptions: No Action azithromycin [Zithromax] 250 mg tablet See Rx Instructions PO .COMPLEX Qty: 6 0RF Rx Instructions: For 250 mg dose pack: take 500 mg today (day 1), then 250 mg for 4 days (days 2-5) PO aspirin 81 mg tablet,delayed release (DR/EC) 81 mg PO QDAY escitalopram oxalate 10 mg tablet 5 mg PO QDAY PRN clonazepam 0.5 mg tablet 0.5 mg PO BID PRN (Reason: panic attacks) Qty: 30 0RF meclizine 25 mg tablet 25 mg PO QID PRN (Reason: dizziness) Qty: 20 0RF cholecalciferol (vitamin D3) 125 mcg (5,000 unit) capsule 125 mcg PO QDAY Qty: 30 0RF triamcinolone acetonide 0.5 % cream 1 applic topical QDAY PRN (Reason: rash) Qty: 15 3RF Follow Up/Referrals: Jean-Paul Arauz MD [Primary Care Provider] - Stand Alone Forms: [facility] Info Instructions
[2024-09-04 18:45] VITALS: BP 150/94; BP 155/99; BP 162/103
--- NOTE | 2024-09-04 18:45 | CRLHL7_ITS ---
For Patients: As a result of the Century Cures Act, medical imaging exams and procedure reports are released immediately into your electronic medical record. You may view this report before your referring provider. If you have questions, please contact your health care provider. INDICATION: Dizziness TECHNIQUE: Chest radiograph 1 view COMPARISON: 03/21/2023 FINDINGS: The sensitivity and specificity of the exam are moderately limited by the patient`s body habitus. Mediastinum: The mediastinum is normal in appearance. The heart silhouette is normal in size and morphology. Lung: Both lungs are unremarkable in appearance. No sign of pleural effusion seen. No pneumothorax is identified. Bone and Soft tissue: Unremarkable for age. A loop recorder is noted on the left chest. IMPRESSION: 1. No acute cardiopulmonary disease is seen. Dictated by: Ramon Norman MD @ 09/04/2024 19:24:13 (Electronically Signed)
--- OUTSIDE RECORDS SUMMARY | 2024-09-04 18:59 | XMS_ITS | Clinical Summary ---
Author Organization [facility] Address [address] [place] [id number] Care Team Providers Care Screen Operator Name Role Phone Pcp, No Primary Care [...] Comments Blood Pressure 157/84 05/24/2018 4:24 PM ELECTRICITY TRADER Pulse 84 05/24/2018 4:24 PM ELECTRICITY TRADER Temperature 36.7 C (98.1 F) 08/28/2016 10:58 AM CDT Respiratory Rate 16 05/24/2018 4:24 PM ELECTRICITY TRADER Oxygen Saturation 100% 09/16/2016 9:16 AM CDT Inhaled Oxygen Concentration - - Weight 97.5 kg (215 lb) 05/24/2018 12:46 PM ELECTRICITY TRADER Height 185.5 cm (6' 1.03) 08/28/2016 10:58 [...] - 199 mg/dL 09/03/2016 5:03 PM CDT [facility] TRIGLYCERIDES 223(H) <150 mg/dL 09/03/2016 5:03 PM CDT [facility] HDL CHOLESTEROL 31(L) >40 mg/dL 7 5:03 PM CDT [facility] NON-HDL CHOLESTEROL 232(H) <145 mg/dl 09/03/2016 5:03 PM CDT [facility] CHOL/HDL RATIO 8.48(H) <4.50 09/03/2016 5:03 PM CDT [facility] LDL CHOLESTEROL 187(H) <=130 mg/dL 09/03/2016 5:03 PM CDT [facility] PATIENT STATUS FASTING 09/03/2016 5:03 PM CDT [facility] Blood BLOOD SPECIMEN / Unknown Venipuncture / Unknown 09/03/2016 9:59 AM CDT 09/03/2016 9:59 AM CDT Samson Cantu DO CHEMISTRY Final Result [facility] [address] [place] [address], [facility] [address] [place] [address], from Last 3 Months or Most Recently Relevant to Health Maintenance Insurance [facility] REFERRAL Member Subscriber Plan / Payer (Ef fective 2016-Present) Name:Jerardo Jaquez Relation to Subscriber:Self Name:Jerardo Jaquez Payer ID:Not on file Group ID:[id number] Type:Not on file Address: [facility] [employer] Care Teams Screen Operator Relationship Specialty Start Date End Date Pcp, No . PCP - General 01/05/20
--- OUTSIDE RECORDS SUMMARY | 2024-09-04 18:59 | XMS_ITS | Clinical Summary ---
Author Organization [facility] Address [address] [place] [address] Care Team Providers Care Track Production Engineer Name Role Phone Kym, Yamilka Karla RN Unavailable [phone] Jessica Beltran RN Unavailable [phone] Source Comments [facility],non-owned Affiliates and Associated Physician Practices is amultiple site organization consisting of ambulatory clinics and hospital sitesin [place], [place], [place] and [place]. This disclosure is being madepursuant to the Care Everywhere program and may not contain all information available regarding this patient. 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
[2024-09-04 19:40] LABS: Basophils Absolute Auto 0.05 K/uL (0.00-0.30); Basophils Percent Auto 0.5 % (0.0-3.0); Eosinophils Percent Auto 8.1 % (0.0-7.0); Hematocrit 41.7 % (37.0-53.0); Hemoglobin* 13.3 gm/dL (13.5-17.5); Immature Granulocytes Abs Auto 0.03 K/uL (0.00-0.30); Immature Granulocytes Pct Auto 0.3 %; Lymphocytes Absolute Auto 2.19 K/uL (0.90-2.90); Lymphocytes Percent Auto 21.6 % (20-44); Mean Corpuscular HGB Conc 32 gm/dL (32-36); Mean Corpuscular Hemoglobin 27 pg (26-34); Mean Corpuscular Volume 83 fL (80-100); Monocytes Percent Auto 7.8 % (0.0-11.0); Neutrophils Absolute Auto 6.26 K/uL (1.7-7.0); Neutrophils Percent Auto 61.7 % (42.0-72.0); Platelet Count* 252 K/uL (140-440); Red Blood Count 5.02 m/uL (4.30-5.90); White Blood Count* 10.14 K/uL (4.50-11.00)
[2024-09-04 19:43] LABS: Appearance Urine Clear (Clear); Bilirubin Urine Negative (Negative); Blood Urine Trace-intact (Negative); Color Urine Yellow (Yellow); Glucose Urine Negative (Negative); Ketones Urine Negative (Negative); Leukocyte Esterase Urine Negative (Negative); Nitrite Urine Negative (Negative); Protein Urine Negative (Negative); Urobilinogen Urine 0.2 (0.2-1.0); pH Urine 6.5 (5.0-8.5)
[2024-09-04 19:45] LABS: Slide Review Reflex No
[2024-09-04 19:53] LABS: RBC Urine 0-2 (0-2); WBC Urine 0-2 (0-5)
[2024-09-04 19:54] VITALS: RESP 16; O2SAT 99
[2024-09-04 19:55] LABS: Albumin* 4.5 g/dL (3.3-5.0); Chloride* 104 mmol/L (96-114); Potassium* 3.8 mmol/L (3.6-5.1); Sodium* 141 mmol/L (135-149)
[2024-09-04 19:57] LABS: Blood Urea Nitrogen* 10 mg/dL (7-30); Creatinine* 1.3 mg/dL (0.5-1.5); Est. Creatinine Clearance* 64.99; Estimated Glomerular Filt Rate 61 ml/min
[2024-09-04 19:58] LABS: Alanine Aminotransferase* 18 U/L (4-50); Alkaline Phosphatase* 83 U/L (40-150); Anion Gap 8 mEq/L (7-15); Aspartate Amino Transferase* 27 U/L (12-35); Bilirubin Total* 0.7 mg/dL (0.1-1.5); Calcium* 10.5 mg/dL (8.4-10.6); Carbon Dioxide* 29 mmol/L (20-32); Glucose* 95 mg/dL (60-115); Total Protein* 7.6 g/dL (6.0-8.3)
[2024-09-04 20:13] LABS: Troponin I* < 0.01 ng/mL (0.01-0.04)
== END 2024-09-04 21:06 | disposition home or self-care (01) ==
PROVIDERS: Emergency Provider Family Medicine; PCP Internal Medicine
DX: R42 Dizziness and giddiness (principal); R06.02 Shortness of breath; F17.210 Nicotine dependence, cigarettes, uncomplicated
CPT/HCPCS: 36415; 71045; 80053; 81001; 84484; 85025; 93005; 99284; 99285

== ENCOUNTER 2024-11-22 19:43 | Outpatient (CLI) | payer MEDICAID, SELFPAY ==
--- NOTE | 2024-11-29 09:01 | W.PM.SLEEP ---
Sleep Study Details Details Interpreting Provider: Wendy Date of Sleep Study: 11/22/24 Sleep Study Details: STUDY TYPE:? Hospital-based without CPAP ? BMI:? 26.3 ORDERING PROVIDER:? Wendy INDICATION:? Concerns about sleep apnea ? SLEEP SUMMARY:? 340 minutes total sleep time RESPIRATORY SUMMARY:? AHI per CMS criteria is 2.4, per rule 1A AHI is 14.7. Supine REM AHI 2.7 PERIODIC LIMB MOVEMENTS OF SLEEP:? None CARDIAC:? Awake 69 asleep 58 no arrhythmias noted IMPRESSION:? Per CMS criteria this is a negative sleep study. The patient has mild apnea per rule 1A RECOMMENDATION: If the patient is symptomatic would consider treatment.
== END 2024-11-22 19:44 | disposition home or self-care (01) ==
LOC: SLEEP 19:44
PROVIDERS: PCP Internal Medicine; Visit Provider Otolaryngology
DX: G47.33 Obstructive sleep apnea (adult) (pediatric) (principal)
CPT/HCPCS: 95810